=== PATIENT | male | born 1955 | race Caucasian/White ===

== ENCOUNTER → 2017-12-22 07:19 | Outpatient (REF) | payer MEDICAID, SELFPAY ==
[2017-12-22 08:23] LABS: Add Manual Diff / Slide Review NO; Basophils Percent Auto 0.6 % (0-2); Eosinophils Percent Auto 4.7 % (2-4); Hematocrit 42.1 % (41-53); Hemoglobin 14.3 g/dL (13.5-17.5); Lymphocytes Percent Auto 16.6 % (25-40); Mean Corpuscular Hemoglobin 31.1 PG (26-34); Mean Corpuscular Volume 91.4 fL (80-100); Monocytes Percent Auto 9.7 % (3-14); Neutrophils Absolute Auto 6400 /uL (3000-5900); Neutrophils Percent Auto 68.4 % (50-75); Platelet Count 234 X10^3/uL (150-400); Red Blood Cell Count 4.61 X10^6/uL (4.5-5.9); Red Cell Distribution Width 13.5 % (11.6-14.8); White Blood Cell Count 9.3 X10^3/uL (4.5-11.0)
[2017-12-22 08:31] LABS: Hemoglobin A1C% w Est Avg Glu 8.3 % (4.0-6.0)
[2017-12-22 08:42] LABS: Alanine Aminotransferase 80 IU/L (21-72); Albumin 3.5 g/dL (3.5-5.0); Albumin Globulin Ratio 0.9 (1.0-2.8); Alkaline Phosphatase 122 U/L (38-126); Aspartate Aminotransferase 36 IU/L (17-59); BUN Creatinine Ratio 37.1 (6-22); Bilirubin Total 0.3 mg/dL (0.2-1.3); Blood Urea Nitrogen 26 mg/dL (9-20); Calcium 8.8 mg/dL (8.4-10.2); Carbon Dioxide 32 mmol/L (22-32); Chloride 101 mmol/L (98-107); Estimated Glomerular Filt Rate > 60.0 mL/min (>60); Globulin 3.8 g/dL (1.7-4.1); Glucose 114 mg/dL (80-110); HEMOLYSIS < 15 (0-50); Potassium 4.3 mmol/L (3.4-5.1); Sodium 141 mmol/L (137-145); Total Protein 7.3 g/dL (6.3-8.2)
== END ==
LOC: LAB 07:19
PROVIDERS: Family Provider Internal Medicine; PCP Internal Medicine; Visit Provider Internal Medicine
DX: I10 Essential (primary) hypertension (principal); E11.9 Type 2 diabetes mellitus without complications
CPT/HCPCS: 36415; 80053; 83036; 85025

== ENCOUNTER → 2018-05-04 14:56 | Outpatient (REF) | payer MEDICAID, SELFPAY ==
[2018-05-04 15:45] LABS: BUN Creatinine Ratio 33.8 (6-22); Blood Urea Nitrogen 27 mg/dL (9-20); Calcium 9.4 mg/dL (8.4-10.2); Carbon Dioxide 27 mmol/L (22-32); Chloride 97 mmol/L (98-107); Estimated Glomerular Filt Rate > 60.0 mL/min (>60); Glucose 381 mg/dL (80-110); HEMOLYSIS < 15 (0-50); Potassium 4.3 mmol/L (3.4-5.1); Sodium 139 mmol/L (137-145)
== END ==
LOC: LAB 14:56
PROVIDERS: Family Provider Internal Medicine; PCP Internal Medicine; Visit Provider Nurse Practitioner Family
DX: I10 Essential (primary) hypertension (principal)
CPT/HCPCS: 80048

== ENCOUNTER → 2018-06-17 07:27 | Outpatient (REF) | payer MEDICAID, SELFPAY ==
[2018-06-17 08:07] LABS: Add Manual Diff / Slide Review NO; Basophils Absolute Auto 0 /uL (0-100); Basophils Percent Auto 0.5 % (0-2); Eosinophils Absolute Auto 400 /uL (0-450); Eosinophils Percent Auto 5.1 % (2-4); Hematocrit 44.1 % (41-53); Hemoglobin 14.8 g/dL (13.5-17.5); Lymphocytes Absolute Auto 1400 /uL (1100-4500); Lymphocytes Percent Auto 17.4 % (25-40); Mean Corpuscular HGB Conc 33.5 % (30-36); Mean Corpuscular Hemoglobin 30.1 PG (26-34); Mean Corpuscular Volume 90.1 fL (80-100); Monocytes Absolute Auto 800 /uL (0-900); Monocytes Percent Auto 9.9 % (3-14); Neutrophils Absolute Auto 5500 /uL (1500-7000); Neutrophils Percent Auto 67.1 % (50-75); Platelet Count 262 X10^3/uL (150-400); Red Cell Distribution Width 13.6 % (11.6-14.8); White Blood Cell Count 8.2 X10^3/uL (4.5-11.0)
[2018-06-17 08:12] LABS: Blood Urea Nitrogen 24 mg/dL (9-20); Calcium 8.7 mg/dL (8.4-10.2); Carbon Dioxide 30 mmol/L (22-32); Chloride 104 mmol/L (98-107); Estimated Glomerular Filt Rate > 60.0 mL/min (>60); Glucose 211 mg/dL (80-110); HEMOLYSIS < 15 (0-50); Potassium 4.5 mmol/L (3.4-5.1); Sodium 140 mmol/L (137-145)
[2018-06-17 08:22] LABS: Hemoglobin A1C% w Est Avg Glu 9.4 % (4.0-6.0)
== END ==
LOC: LAB 07:27
PROVIDERS: Family Provider Internal Medicine; PCP Internal Medicine; Visit Provider Internal Medicine
DX: I10 Essential (primary) hypertension (principal); E08.8 Diabetes mellitus due to underlying condition with unspecified complications
CPT/HCPCS: 36415; 80048; 83036; 85025

== ENCOUNTER → 2018-08-12 07:11 | Outpatient (REF) | payer MEDICAID, SELFPAY ==
[2018-08-12 07:52] LABS: Add Manual Diff / Slide Review NO; Basophils Absolute Auto 100 /uL (0-100); Basophils Percent Auto 0.8 % (0-2); Eosinophils Absolute Auto 400 /uL (0-450); Eosinophils Percent Auto 5.5 % (2-4); Hematocrit 42.3 % (41-53); Hemoglobin 14.3 g/dL (13.5-17.5); Lymphocytes Absolute Auto 1700 /uL (1100-4500); Lymphocytes Percent Auto 21.3 % (25-40); Mean Corpuscular HGB Conc 33.7 % (30-36); Mean Corpuscular Hemoglobin 29.9 PG (26-34); Mean Corpuscular Volume 88.7 fL (80-100); Monocytes Absolute Auto 800 /uL (0-900); Monocytes Percent Auto 9.5 % (3-14); Neutrophils Absolute Auto 5100 /uL (1500-7000); Neutrophils Percent Auto 62.9 % (50-75); Platelet Count 256 X10^3/uL (150-400); Red Blood Cell Count 4.77 X10^6/uL (4.5-5.9); Red Cell Distribution Width 13.6 % (11.6-14.8); White Blood Cell Count 8.1 X10^3/uL (4.5-11.0)
[2018-08-12 08:16] LABS: Hemoglobin A1C% w Est Avg Glu 8.8 % (4.0-6.0)
[2018-08-12 08:54] LABS: Blood Urea Nitrogen 15 mg/dL (9-20); Calcium 8.6 mg/dL (8.4-10.2); Carbon Dioxide 30 mmol/L (22-32); Chloride 98 mmol/L (98-107); Estimated Glomerular Filt Rate > 60.0 mL/min (>60); Glucose 198 mg/dL (80-110); HEMOLYSIS < 15 (0-50); Phenytoin / Dilantin 8.6 ug/mL (10-20); Potassium 4.6 mmol/L (3.4-5.1); Sodium 138 mmol/L (137-145)
== END ==
LOC: LAB 07:11
PROVIDERS: Family Provider Internal Medicine; PCP Internal Medicine; Visit Provider Nurse Practitioner Family
DX: G40.909 Epilepsy, unspecified, not intractable, without status epilepticus (principal); E11.9 Type 2 diabetes mellitus without complications
CPT/HCPCS: 36415; 80048; 80185; 83036; 85025

== ENCOUNTER 2018-09-06 01:16 | Inpatient (IN) | payer MEDICAID, SELFPAY ==
[2018-09-06] VITALS (14 sets, daily range): BP systolic 109–160; BP diastolic 63–79; PULSE 85–104; RESP 16–32; TEMP 36.4–38.7; O2SAT 87–99; BMI 25.2
--- NOTE | 2018-09-06 01:22 | DI.RAD.S_ITS ---
PROCEDURE: XR CHEST 1V INDICATIONS: hypoxia TECHNIQUE: One view of the chest was acquired. COMPARISON: [facility], CHEST 2 VIEW, 07/24/2016, 16:17. [facility], , CHEST 1 VIEW, 12/20/2013, 12:52. FINDINGS: Surgical changes and devices: None. Lungs and pleura: Lungs are abnormal, with a mild patchy pattern of pneumonia, and reduced inspiratory volume.. No pleural effusions or pneumothorax. Mediastinum: Mediastinal contours appear normal. Heart size is normal. Bones and chest wall: No suspicious bony lesions. Overlying soft tissues appear unremarkable. IMPRESSION: Inspiratory volume is significantly reduced and there is a patchy pattern of what appears to be pneumonia present bilaterally. Dictated by: Vijay Thurman M.D. on 09/06/2018 at 8:13 Approved by: Vijay Thurman M.D. on 09/06/2018 at 8:13
[2018-09-06] MEDS: ACETAMINOPHEN 325 MG TABLET 650 MG PO (01:29)
[2018-09-06 01:56] LABS: Influenza A and B by PCR Rapid Negative (Negative)
[2018-09-06 01:56] LABS: Hemoglobin 16.3 g/dL (13.5-17.5); Mean Corpuscular Hemoglobin 29.9 PG (26-34); Platelet Count 305 X10^3/uL (150-400); Red Blood Cell Count 5.46 X10^6/uL (4.5-5.9); Red Cell Distribution Width 13.8 % (11.6-14.8); White Blood Cell Count 15.8 X10^3/uL (4.5-11.0)
[2018-09-06 01:58] LABS: Add Manual Diff / Slide Review YES
[2018-09-06 02:04] LABS: Alanine Aminotransferase 62 IU/L (21-72); Albumin 4.2 g/dL (3.5-5.0); Alkaline Phosphatase 162 U/L (38-126); Aspartate Aminotransferase 38 IU/L (17-59); BUN Creatinine Ratio 36.7 (6-22); Bilirubin Total 0.6 mg/dL (0.2-1.3); Blood Urea Nitrogen 22 mg/dL (9-20); Carbon Dioxide 26 mmol/L (22-32); Chloride 101 mmol/L (98-107); Creatine Kinase 36 U/L (55-170); Estimated Glomerular Filt Rate > 60.0 mL/min (>60); Globulin 4.4 g/dL (1.7-4.1); Glucose 256 mg/dL (80-110); HEMOLYSIS < 15 (0-50); Lipase 17 U/L (23-300); Magnesium 1.3 mg/dL (1.6-2.3); Potassium 3.9 mmol/L (3.4-5.1); Sodium 138 mmol/L (137-145); Total Protein 8.6 g/dL (6.3-8.2)
[2018-09-06 02:05] LABS: Neutrophils Absolute Manual 14062 /uL (3000-5900); RBC Morphology Normal Morphology; Total Cells Counted 100
[2018-09-06 02:08] LABS: PTT Partial Thromboplastin Tim 28 SECONDS (26.4-36.2)
[2018-09-06 02:16] LABS: Troponin I < 0.012 ng/mL (0.01-0.034)
[2018-09-06 02:19] LABS: Procalcitonin 0.21 ng/mL (<0.5)
[2018-09-06 02:23] LABS: B Type Natriuretic Peptide < 100 (<100)
[2018-09-06 02:25] LABS: Lactate (Lactic Acid) 1.8 mmol/L (0.7-2.1)
--- NOTE | 2018-09-06 02:50 | ED.SOB ---
HPI - SOB/Dyspnea General Chief Complaint: Shortness of Breath/Dyspnea Stated Complaint: SOB Time Seen by Provider: 09/06/18 01:20 Source: patient and EMS Mode of arrival: EMS History of Present Illness Patient is a 63-year-old male who resides at [facility] presents with vomiting and hypoxia. He has a history of CVA with right-sided weakness. He was noted to be of vomiting today and then had difficulty breathing he was noted to have low oxygen. Patient is febrile here. He is a a poor historian overall has no complaints. MD Complaint: shortness of breath Severity: moderate Relieving factors: oxygen Treatment prior to arrival: oxygen Related Data Home oxygen amount: none Previous Rx's Medication Instructions Recorded glyburide 5 mg PO QDAY #30 05/17/12 CHLORTHALIDONE (#HYGROTON) 25 mg PO QDAY #90 05/24/12 Cane: Single Point Adjustable Cane dev #1 06/04/12 Clonidine Hydrochloride (#CATAPRES) 0.1 mg PO BID #180 07/13/12 MINOXIDIL (#LONITEN) 5 mg PO BID #90 07/13/12 losartan 100 mg PO QDAY #30 07/13/12 metoprolol succinate [Toprol XL] 200 mg PO BID #60 07/13/12 paroxetine HCl [Paxil] 20 mg PO Q DAY #90 08/03/12 Glucose: Test Strips 0 str #100 08/04/12 Cane: Single Point dev #1 08/09/12 [GRABBER] #0 08/09/12 Phenytoin Sodium, Extended (#AVPAK 100 mg PO TID #270 08/13/12 EXTENDED PHENYTOIN SODIUM) atorvastatin [Lipitor] 80 mg PO QDAY #90 09/02/12 ISOSORBIDE MONONITRATE (#IMDUR) 60 mg PO QDAY #30 10/08/12 Glucose: Home Monitor 0 dev #1 10/11/12 DILTIAZEM HCL (DILTIA XT~) 120 mg PO BID #60 10/27/12 bupropion HCl [Wellbutrin SR] 150 mg PO BID #60 11/15/12 ASPIRIN (#ASPIRIN) 325 mg PO Q DAY #100 11/29/12 BENZONATATE (Tessalon) 200 mg PO TID #20 01/11/13 LISINOPRIL (#PRINIVIL) 40 mg PO BID #180 01/19/13 Glucose: Home Monitor 0 dev DIRECTED #1 01/21/13 Lancet: Device 0 dev QID #1 01/21/13 silver sulfadiazine 0 TOPICAL SEE INSTRUCTIONS #25 gm 01/21/13 metformin [Glucophage] 1,000 mg PO BID #60 tab 02/07/13 ondansetron HCl [Zofran] 4 mg PO Q6HP PRN #30 tab 02/08/13 Allergies Allergy/AdvReac Type Severity Reaction Status Date / Time No Known Allergies Allergy Uncoded 09/09/17 12:17 Review of Systems Review of Systems ROS Unobtainable: All systems reviewed & are unremarkable except as noted in HPI and below Constitutional Reports fever(s) Eyes Denies eye discharge ENT Ears, Nose, Mouth, and Throat: Denies sore throat Cardiovascular Denies chest pain, Denies irregular heart rhythm, Denies lightheadedness, Denies palpitations, Reports dyspnea and Denies orthopnea Respiratory Reports dyspnea Gastrointestinal Gastrointestinal: Denies abdominal pain, Denies change in bowel habits, Denies diarrhea, Denies nausea and Reports vomiting Musculoskeletal Denies back pain, Denies muscle weakness, Denies numbness and Denies tingling Integumentary/Breasts Denies pruritus, Denies erythema, Denies rash and Denies wounds Neurologic Reports as per HPI, Denies numbness and Denies tingling Endocrine Denies palpitations [facility] Medical History CVA (cerebral vascular accident) (Acute) Coronary artery disease (Acute) Diabetes (Acute) Hyperlipidemia (Acute) Hypertension (Acute) Social History (Updated 09/06/18 @ 03:27 by Ca Zavala DO) lives independently: No housing: shelter Social History lives independently: No housing: shelter Exam Initial Vital Signs Initial Vital Signs: Vital Signs Temperature 101.6 F H 09/06/18 01:21 Pulse Rate 104 H 09/06/18 01:21 Respiratory Rate 32 H 09/06/18 01:21 Blood Pressure 152/72 H 09/06/18 01:21 Pulse Oximetry 87 L 09/06/18 01:21 GENERAL: Alert male appears older than stated age and in no acute distress. HEENT: Head atraumatic,EOMI, pupils reactive, face symmetric, neck is supple no JVD CARDIOVASCULAR: Regular rate and rhythm without murmurs, rubs or gallops. RESPIRATORY: Decreased breath sounds on right greater than left no crackles no apparent respiratory distress although O2 level on room air is noted to be 87% with good pleth ABDOMEN: Soft, nontender. Normoactive bowel sounds all 4 quadrants. No guarding or rebound. EXTREMITIES: Normal range of motion, no clubbing or edema. Neurovascularly intact NEUROLOGICAL: Alert and oriented. right-sided contractures SKIN: Warm, dry, no laceration, no petechiae, no rashes or lesions. Course Orders Ordered: ED Orders 09/06/18 01:22 Consult to Respiratory Therapy Evaluate & Treat XR chest 1V Stat EKG-12 Lead Stat 09/06/18 01:30 B Type Natriuretic Peptide Stat Complete Blood Count AUTO DIFF Stat Comprehensive Metabolic Panel Stat Lactate (Lactic Acid) Stat Lipase Stat Magnesium Stat Partial Thromboplastin Time Stat Procalcitonin Stat Prothrombin Time INR Stat Troponin & CK Cardiac Panel Stat 09/06/18 01:35 Influenza A and B by PCR Rapid Stat 09/06/18 01:55 Blood Culture Stat 09/06/18 03:30 Urinalysis and Microscopic Stat 09/06/18 03:31 Consult to Discharge Planning Routine 09/06/18 03:34 Respiratory Panel (Film Array) Stat 09/07/18 04:00 Basic Metabolic Panel Stat Complete Blood Count AUTO DIFF Stat Magnesium Stat Procalcitonin Stat 09/08/18 06:00 XR chest 2V Routine Acetaminophen (Tylenol) 650 mg PO Q6HR PRN PRN Reason: As Needed for Fever/Mild Pain Docusate Sodium (Colace) 100 mg PO BID PRN PRN Reason: Constipation Heparin Sodium (Porcine) (Heparin) 5,000 unit SUBCUT BID CAROLE Sodium Chloride (Normal Saline 0.9%) 2,400 mls @ 800 mls/hr 30 ml/kg infuse over 3 hr (2400 ml) IV NOW ONE Stop: 09/06/18 05:38 Last Admin: 09/06/18 03:00 Dose: 800 mls/hr Magnesium Sulfate (Magnesium Sulfate) 2 gm in 50 mls @ 25 mls/hr IV NOW ONE Stop: 09/06/18 05:37 Melatonin (Melatonin) 5 mg PO BEDTIME PRN PRN Reason: Sleep Ondansetron HCl (Zofran) 4 mg IV Q8HR PRN PRN Reason: Nausea And Vomiting Discontinued Medications Acetaminophen (Tylenol) 650 mg PO NOW ONE Stop: 09/06/18 01:23 Last Admin: 09/06/18 01:29 Dose: 650 mg Cefepime HCl 2 gm/ Sodium (Chloride) 100 mls @ 200 mls/hr IV NOW ONE Stop: 09/06/18 02:33 Vancomycin HCl 1,250 mg/ (Sodium Chloride) 250 mls @ 250 mls/hr IV NOW ONE Stop: 09/06/18 02:33 Vital Signs - 8 hr 09/06/18 01:21 09/06/18 01:29 09/06/18 03:50 Temperature 101.6 F H 101.6 F H Pulse Rate 104 H 87 Respiratory Rate 32 H 25 H Blood Pressure 152/72 H 124/79 Pulse Oximetry 87 L 97 MDM - SOB/Dyspnea Lab Data Attestation: I reviewed the patient's lab results. Result diagrams: 09/06/18 01:30 09/06/18 01:30 Lab Results 09/06/18 09/06/18 09/06/18 Range/Units 01:30 01:30 01:30 WBC 15.8 H (4.5-11.0) X10^3/uL RBC 5.46 (4.5-5.9) X10^6/uL Hgb 16.3 (13.5-17.5) g/dL Hct 48.0 (41-53) % MCV 88.0 (80-100) fL MCH 29.9 (26-34) PG MCHC 34.0 (30-36) % RDW 13.8 (11.6-14.8) % Plt Count 305 (150-400) X10^3/uL Neut % (Auto) Not Reportable Lymph % (Auto) Not Reportable [place] % (Auto) Not Reportable Eos % (Auto) Not Reportable Baso % (Auto) Not Reportable Lymph # (Auto) Not Reportable [place] # (Auto) Not Reportable Baso # (Auto) Not Reportable Total Counted 100 Seg Neutrophils % 83.0 H (38-70) % Band Neutrophils % 6.0 (3-7) % Lymphocytes % (Manual) 8.0 L (25-45) % Monocytes % (Manual) 3.0 (2-11) % Neutrophils # (Manual) 26650 H (8334-4023) /uL RBC Morphology Normal morphology PT 12.0 (10.1-12.7) SECONDS INR 1.0 (0.9-1.3) APTT 28 (26.4-36.2) SECONDS Sodium 138 (137-145) mmol/L Potassium 3.9 (3.4-5.1) mmol/L Chloride 101 (98-107) mmol/L Carbon Dioxide 26 (22-32) mmol/L BUN 22 H (9-20) mg/dL Creatinine 0.60 L (0.66-1.25) mg/dL Estimated GFR > 60.0 (>60) mL/min BUN/Creatinine Ratio 36.7 H (6-22) Glucose 256 H (80-110) mg/dL Lactate (0.7-2.1) mmol/L Calcium 9.0 (8.4-10.2) mg/dL Magnesium 1.3 L (1.6-2.3) mg/dL Total Bilirubin 0.6 (0.2-1.3) mg/dL AST 38 (17-59) IU/L ALT 62 (21-72) IU/L Alkaline Phosphatase 162 H (38-126) U/L Total Creatine Kinase 36 L (55-170) U/L CK-MB (CK-2) TNP CK-MB (CK-2) Rel Index TNP Troponin I < 0.012 (0.01-0.034) ng/mL B-Natriuretic Peptide < 100 (<100) Total Protein 8.6 H (6.3-8.2) g/dL Albumin 4.2 (3.5-5.0) g/dL Globulin 4.4 H (1.7-4.1) g/dL Albumin/Globulin Ratio 1.0 (1.0-2.8) Lipase (23-300) U/L Procalcitonin (<0.5) ng/mL Influenza A & B (PCR) (Negative) 09/06/18 09/06/18 09/06/18 Range/Units 01:30 01:30 01:30 WBC (4.5-11.0) X10^3/uL RBC (4.5-5.9) X10^6/uL Hgb (13.5-17.5) g/dL Hct (41-53) % MCV (80-100) fL MCH (26-34) PG MCHC (30-36) % RDW (11.6-14.8) % Plt Count (150-400) X10^3/uL Neut % (Auto) Lymph % (Auto) [place] % (Auto) Eos % (Auto) Baso % (Auto) Lymph # (Auto) [place] # (Auto) Baso # (Auto) Total Counted Seg Neutrophils % (38-70) % Band Neutrophils % (3-7) % Lymphocytes % (Manual) (25-45) % Monocytes % (Manual) (2-11) % Neutrophils # (Manual) (5053-4308) /uL RBC Morphology PT (10.1-12.7) SECONDS INR (0.9-1.3) APTT (26.4-36.2) SECONDS Sodium (137-145) mmol/L Potassium (3.4-5.1) mmol/L Chloride (98-107) mmol/L Carbon Dioxide (22-32) mmol/L BUN (9-20) mg/dL Creatinine (0.66-1.25) mg/dL Estimated GFR (>60) mL/min BUN/Creatinine Ratio (6-22) Glucose (80-110) mg/dL Lactate 1.8 (0.7-2.1) mmol/L Calcium (8.4-10.2) mg/dL Magnesium (1.6-2.3) mg/dL Total Bilirubin (0.2-1.3) mg/dL AST (17-59) IU/L ALT (21-72) IU/L Alkaline Phosphatase (38-126) U/L Total Creatine Kinase (55-170) U/L CK-MB (CK-2) CK-MB (CK-2) Rel Index Troponin I (0.01-0.034) ng/mL B-Natriuretic Peptide (<100) Total Protein (6.3-8.2) g/dL Albumin (3.5-5.0) g/dL Globulin (1.7-4.1) g/dL Albumin/Globulin Ratio (1.0-2.8) Lipase 17 L (23-300) U/L Procalcitonin 0.21 (<0.5) ng/mL Influenza A & B (PCR) (Negative) 09/06/18 Range/Units 01:35 WBC (4.5-11.0) X10^3/uL RBC (4.5-5.9) X10^6/uL Hgb (13.5-17.5) g/dL Hct (41-53) % MCV (80-100) fL MCH (26-34) PG MCHC (30-36) % RDW (11.6-14.8) % Plt Count (150-400) X10^3/uL Neut % (Auto) Lymph % (Auto) [place] % (Auto) Eos % (Auto) Baso % (Auto) Lymph # (Auto) [place] # (Auto) Baso # (Auto) Total Counted Seg Neutrophils % (38-70) % Band Neutrophils % (3-7) % Lymphocytes % (Manual) (25-45) % Monocytes % (Manual) (2-11) % Neutrophils # (Manual) (7243-5407) /uL RBC Morphology PT (10.1-12.7) SECONDS INR (0.9-1.3) APTT (26.4-36.2) SECONDS Sodium (137-145) mmol/L Potassium (3.4-5.1) mmol/L Chloride (98-107) mmol/L Carbon Dioxide (22-32) mmol/L BUN (9-20) mg/dL Creatinine (0.66-1.25) mg/dL Estimated GFR (>60) mL/min BUN/Creatinine Ratio (6-22) Glucose (80-110) mg/dL Lactate (0.7-2.1) mmol/L Calcium (8.4-10.2) mg/dL Magnesium (1.6-2.3) mg/dL Total Bilirubin (0.2-1.3) mg/dL AST (17-59) IU/L ALT (21-72) IU/L Alkaline Phosphatase (38-126) U/L Total Creatine Kinase (55-170) U/L CK-MB (CK-2) CK-MB (CK-2) Rel Index Troponin I (0.01-0.034) ng/mL B-Natriuretic Peptide (<100) Total Protein (6.3-8.2) g/dL Albumin (3.5-5.0) g/dL Globulin (1.7-4.1) g/dL Albumin/Globulin Ratio (1.0-2.8) Lipase (23-300) U/L Procalcitonin (<0.5) ng/mL Influenza A & B (PCR) Negative (Negative) ECG Data Attestation: I personally reviewed and interpreted this ECG as follows: Prior ECG tracings: not available for review Interpretation: Sinus tachycardia rate 105 DE interval [address] elevations MDM Narrative Medical decision making narrative: Patient is not hypotensive or tachycardic normal lactic acid. Started antibiotics and IV fluids. He is febrile with leukocytosis and pneumonia on x-ray along with hypoxia. It is probable that he aspirated after vomiting. His abdomen is soft and nontender. [facility] hospitalist accepts patient Discharge Plan Departure Patient Disposition: Admitted As Inpatient Clinical Impression: Acute respiratory failure with hypoxia Pneumonia Qualifiers: Pneumonia type: aspiration pneumonia Aspiration pneumonia type: unspecified Laterality: right Lung location: middle lobe of lung Qualified Code(s): J69.0 - Pneumonitis due to inhalation of food and vomit Discharge Date/Time: 09/06/18 03:52 Interventions: ED Discharge Assessment Last Done: 09/06/18 03:50 Admit Date/Time: 09/06/18 03:10 Admit Provider: Naldo Maurer
[2018-09-06] MEDS: SODIUM CHLORIDE 0.9% 2,400 ML 800 ML IV (03:00)
--- NOTE | 2018-09-06 03:30 | ED_ITS ---
HPI - SOB/Dyspnea General Chief Complaint: Shortness of Breath/Dyspnea Stated Complaint: SOB Time Seen by Provider: 09/06/18 01:20 Source: patient and EMS Mode of arrival: EMS History of Present Illness Patient is a 63-year-old male who resides at [facility] presents with vomiting and hypoxia. He has a history of CVA with right-sided weakness. He was noted to be of vomiting today and then had difficulty breathing he was noted to have low oxygen. Patient is febrile here. He is a a poor historian overall has no complaints. MD Complaint: shortness of breath Severity: moderate Relieving factors: oxygen Treatment prior to arrival: oxygen Related Data Home oxygen amount: none Previous Rx's Medication Instructions Recorded glyburide 5 mg PO QDAY #30 05/17/12 CHLORTHALIDONE (#HYGROTON) 25 mg PO QDAY #90 05/24/12 Cane: Single Point Adjustable Cane dev #1 06/04/12 Clonidine Hydrochloride (#CATAPRES) 0.1 mg PO BID #180 07/13/12 MINOXIDIL (#LONITEN) 5 mg PO BID #90 07/13/12 losartan 100 mg PO QDAY #30 07/13/12 metoprolol succinate [Toprol XL] 200 mg PO BID #60 07/13/12 paroxetine HCl [Paxil] 20 mg PO Q DAY #90 08/03/12 Glucose: Test Strips 0 str #100 08/04/12 Cane: Single Point dev #1 08/09/12 [GRABBER] #0 08/09/12 Phenytoin Sodium, Extended (#AVPAK 100 mg PO TID #270 08/13/12 EXTENDED PHENYTOIN SODIUM) atorvastatin [Lipitor] 80 mg PO QDAY #90 09/02/12 ISOSORBIDE MONONITRATE (#IMDUR) 60 mg PO QDAY #30 10/08/12 Glucose: Home Monitor 0 dev #1 10/11/12 DILTIAZEM HCL (DILTIA XT~) 120 mg PO BID #60 10/27/12 bupropion HCl [Wellbutrin SR] 150 mg PO BID #60 11/15/12 ASPIRIN (#ASPIRIN) 325 mg PO Q DAY #100 11/29/12 BENZONATATE (Tessalon) 200 mg PO TID #20 01/11/13 LISINOPRIL (#PRINIVIL) 40 mg PO BID #180 01/19/13 Glucose: Home Monitor 0 dev DIRECTED #1 01/21/13 Lancet: Device 0 dev QID #1 01/21/13 silver sulfadiazine 0 TOPICAL SEE INSTRUCTIONS #25 gm 01/21/13 metformin [Glucophage] 1,000 mg PO BID #60 tab 02/07/13 ondansetron HCl [Zofran] 4 mg PO Q6HP PRN #30 tab 02/08/13 Allergies Allergy/AdvReac Type Severity Reaction Status Date / Time No Known Allergies Allergy Uncoded 09/09/17 12:17 Review of Systems Review of Systems ROS Unobtainable: All systems reviewed & are unremarkable except as noted in HPI and below Constitutional Reports fever(s) Eyes Denies eye discharge ENT Ears, Nose, Mouth, and Throat: Denies sore throat Cardiovascular Denies chest pain, Denies irregular heart rhythm, Denies lightheadedness, Denies palpitations, Reports dyspnea and Denies orthopnea Respiratory Reports dyspnea Gastrointestinal Gastrointestinal: Denies abdominal pain, Denies change in bowel habits, Denies diarrhea, Denies nausea and Reports vomiting Musculoskeletal Denies back pain, Denies muscle weakness, Denies numbness and Denies tingling Integumentary/Breasts Denies pruritus, Denies erythema, Denies rash and Denies wounds Neurologic Reports as per HPI, Denies numbness and Denies tingling Endocrine Denies palpitations [facility] Medical History CVA (cerebral vascular accident) (Acute) Coronary artery disease (Acute) Diabetes (Acute) Hyperlipidemia (Acute) Hypertension (Acute) Social History (Updated 09/06/18 @ 03:27 by Ca Zavala DO) lives independently: No housing: [facility] Social History lives independently: No housing: [facility] Exam Initial Vital Signs Initial Vital Signs: Vital Signs Temperature 101.6 F H 09/06/18 01:21 Pulse Rate 104 H 09/06/18 01:21 Respiratory Rate 32 H 09/06/18 01:21 Blood Pressure 152/72 H 09/06/18 01:21 Pulse Oximetry 87 L 09/06/18 01:21 GENERAL: Alert male appears older than stated age and in no acute distress. HEENT: Head atraumatic,EOMI, pupils reactive, face symmetric, neck is supple no JVD CARDIOVASCULAR: Regular rate and rhythm without murmurs, rubs or gallops. RESPIRATORY: Decreased breath sounds on right greater than left no crackles no apparent respiratory distress although O2 level on room air is noted to be 87% with good pleth ABDOMEN: Soft, nontender. Normoactive bowel sounds all 4 quadrants. No guarding or rebound. EXTREMITIES: Normal range of motion, no clubbing or edema. Neurovascularly intact NEUROLOGICAL: Alert and oriented. right-sided contractures SKIN: Warm, dry, no laceration, no petechiae, no rashes or lesions. Course Orders Ordered: ED Orders 09/06/18 01:22 Consult to Respiratory Therapy Evaluate & Treat XR chest 1V Stat EKG-12 Lead Stat 09/06/18 01:30 B Type Natriuretic Peptide Stat Complete Blood Count AUTO DIFF Stat Comprehensive Metabolic Panel Stat Lactate (Lactic Acid) Stat Lipase Stat Magnesium Stat Partial Thromboplastin Time Stat Procalcitonin Stat Prothrombin Time INR Stat Troponin & CK Cardiac Panel Stat 09/06/18 01:35 Influenza A and B by PCR Rapid Stat 09/06/18 01:55 Blood Culture Stat 09/06/18 03:30 Urinalysis and Microscopic Stat 09/06/18 03:31 Consult to Discharge Planning Routine 09/06/18 03:34 Respiratory Panel (Film Array) Stat 09/07/18 04:00 Basic Metabolic Panel Stat Complete Blood Count AUTO DIFF Stat Magnesium Stat Procalcitonin Stat 09/08/18 06:00 XR chest 2V Routine Acetaminophen (Tylenol) 650 mg PO Q6HR PRN PRN Reason: As Needed for Fever/Mild Pain Docusate Sodium (Colace) 100 mg PO BID PRN PRN Reason: Constipation Heparin Sodium (Porcine) (Heparin) 5,000 unit SUBCUT BID CAROLE Sodium Chloride (Normal Saline 0.9%) 2,400 mls @ 800 mls/hr 30 ml/kg infuse ove r 3 hr (2400 ml) IV NOW ONE Stop: 09/06/18 05:38 Last Admin: 09/06/18 03:00 Dose: 800 mls/hr Magnesium Sulfate (Magnesium Sulfate) 2 gm in 50 mls @ 25 mls/hr IV NOW ONE Stop: 09/06/18 05:37 Melatonin (Melatonin) 5 mg PO BEDTIME PRN PRN Reason: Sleep Ondansetron HCl (Zofran) 4 mg IV Q8HR PRN PRN Reason: Nausea And Vomiting Discontinued Medications Acetaminophen (Tylenol) 650 mg PO NOW ONE Stop: 09/06/18 01:23 Last Admin: 09/06/18 01:29 Dose: 650 mg Cefepime HCl 2 gm/ Sodium (Chloride) 100 mls @ 200 mls/hr IV NOW ONE Stop: 09/06/18 02:33 Vancomycin HCl 1,250 mg/ (Sodium Chloride) 250 mls @ 250 mls/hr IV NOW ONE Stop: 09/06/18 02:33 Vital Signs - 8 hr 09/06/18 01:21 09/06/18 01:29 09/06/18 03:50 Temperature 101.6 F H 101.6 F H Pulse Rate 104 H 87 Respiratory Rate 32 H 25 H Blood Pressure 152/72 H 124/79 Pulse Oximetry 87 L 97 MDM - SOB/Dyspnea Lab Data Attestation: I reviewed the patient's lab results. Result diagrams: 09/06/18 01:30 09/06/18 01:30 Lab Results 09/06/18 09/06/18 09/06/18 Range/Units 01:30 01:30 01:30 WBC 15.8 H (4.5-11.0) X10^3/uL RBC 5.46 (4.5-5.9) X10^6/uL Hgb 16.3 (13.5-17.5) g/dL Hct 48.0 (41-53) % MCV 88.0 (80-100) fL MCH 29.9 (26-34) PG MCHC 34.0 (30-36) % RDW 13.8 (11.6-14.8) % Plt Count 305 (150-400) X10^3/uL Neut % (Auto) Not Reportable Lymph % (Auto) Not Reportable [place] % (Auto) Not Reportable Eos % (Auto) Not Reportable Baso % (Auto) Not Reportable Lymph # (Auto) Not Reportable [place] # (Auto) Not Reportable Baso # (Auto) Not Reportable Total Counted 100 Seg Neutrophils % 83.0 H (38-70) % Band Neutrophils % 6.0 (3-7) % Lymphocytes % (Manual) 8.0 L (25-45) % Monocytes % (Manual) 3.0 (2-11) % Neutrophils # (Manual) 90371 H (8754-8251) /uL RBC Morphology Normal morphology PT 12.0 (10.1-12.7) SECONDS INR 1.0 (0.9-1.3) APTT 28 (26.4-36.2) SECONDS Sodium 138 (137-145) mmol/L Potassium 3.9 (3.4-5.1) mmol/L Chloride 101 (98-107) mmol/L Carbon Dioxide 26 (22-32) mmol/L BUN 22 H (9-20) mg/dL Creatinine 0.60 L (0.66-1.25) mg/dL Estimated GFR > 60.0 (>60) mL/min BUN/Creatinine Ratio 36.7 H (6-22) Glucose 256 H (80-110) mg/dL Lactate (0.7-2.1) mmol/L Calcium 9.0 (8.4-10.2) mg/dL Magnesium 1.3 L (1.6-2.3) mg/dL Total Bilirubin 0.6 (0.2-1.3) mg/dL AST 38 (17-59) IU/L ALT 62 (21-72) IU/L Alkaline Phosphatase 162 H (38-126) U/L Total Creatine Kinase 36 L (55-170) U/L CK-MB (CK-2) TNP CK-MB (CK-2) Rel Index TNP Troponin I < 0.012 (0.01-0.034) ng/mL B-Natriuretic Peptide < 100 (<100) Total Protein 8.6 H (6.3-8.2) g/dL Albumin 4.2 (3.5-5.0) g/dL Globulin 4.4 H (1.7-4.1) g/dL Albumin/Globulin Ratio 1.0 (1.0-2.8) Lipase (23-300) U/L Procalcitonin (<0.5) ng/mL Influenza A & B (PCR) (Negative) 09/06/18 09/06/18 09/06/18 Range/Units 01:30 01:30 01:30 WBC (4.5-11.0) X10^3/uL RBC (4.5-5.9) X10^6/uL Hgb (13.5-17.5) g/dL Hct (41-53) % MCV (80-100) fL MCH (26-34) PG MCHC (30-36) % RDW (11.6-14.8) % Plt Count (150-400) X10^3/uL Neut % (Auto) Lymph % (Auto) [place] % (Auto) Eos % (Auto) Baso % (Auto) Lymph # (Auto) [place] # (Auto) Baso # (Auto) Total Counted Seg Neutrophils % (38-70) % Band Neutrophils % (3-7) % Lymphocytes % (Manual) (25-45) % Monocytes % (Manual) (2-11) % Neutrophils # (Manual) (1016-9960) /uL RBC Morphology PT (10.1-12.7) SECONDS INR (0.9-1.3) APTT (26.4-36.2) SECONDS Sodium (137-145) mmol/L Potassium (3.4-5.1) mmol/L Chloride (98-107) mmol/L Carbon Dioxide (22-32) mmol/L BUN (9-20) mg/dL Creatinine (0.66-1.25) mg/dL Estimated GFR (>60) mL/min BUN/Creatinine Ratio (6-22) Glucose (80-110) mg/dL Lactate 1.8 (0.7-2.1) mmol/L Calcium (8.4-10.2) mg/dL Magnesium (1.6-2.3) mg/dL Total Bilirubin (0.2-1.3) mg/dL AST (17-59) IU/L ALT (21-72) IU/L Alkaline Phosphatase (38-126) U/L Total Creatine Kinase (55-170) U/L CK-MB (CK-2) CK-MB (CK-2) Rel Index Troponin I (0.01-0.034) ng/mL B-Natriuretic Peptide (<100) Total Protein (6.3-8.2) g/dL Albumin (3.5-5.0) g/dL Globulin (1.7-4.1) g/dL Albumin/Globulin Ratio (1.0-2.8) Lipase 17 L (23-300) U/L Procalcitonin 0.21 (<0.5) ng/mL Influenza A & B (PCR) (Negative) 09/06/18 Range/Units 01:35 WBC (4.5-11.0) X10^3/uL RBC (4.5-5.9) X10^6/uL Hgb (13.5-17.5) g/dL Hct (41-53) % MCV (80-100) fL MCH (26-34) PG MCHC (30-36) % RDW (11.6-14.8) % Plt Count (150-400) X10^3/uL Neut % (Auto) Lymph % (Auto) [place] % (Auto) Eos % (Auto) Baso % (Auto) Lymph # (Auto) [place] # (Auto) Baso # (Auto) Total Counted Seg Neutrophils % (38-70) % Band Neutrophils % (3-7) % Lymphocytes % (Manual) (25-45) % Monocytes % (Manual) (2-11) % Neutrophils # (Manual) (2032-1123) /uL RBC Morphology PT (10.1-12.7) SECONDS INR (0.9-1.3) APTT (26.4-36.2) SECONDS Sodium (137-145) mmol/L Potassium (3.4-5.1) mmol/L Chloride (98-107) mmol/L Carbon Dioxide (22-32) mmol/L BUN (9-20) mg/dL Creatinine (0.66-1.25) mg/dL Estimated GFR (>60) mL/min BUN/Creatinine Ratio (6-22) Glucose (80-110) mg/dL Lactate (0.7-2.1) mmol/L Calcium (8.4-10.2) mg/dL Magnesium (1.6-2.3) mg/dL Total Bilirubin (0.2-1.3) mg/dL AST (17-59) IU/L ALT (21-72) IU/L Alkaline Phosphatase (38-126) U/L Total Creatine Kinase (55-170) U/L CK-MB (CK-2) CK-MB (CK-2) Rel Index Troponin I (0.01-0.034) ng/mL B-Natriuretic Peptide (<100) Total Protein (6.3-8.2) g/dL Albumin (3.5-5.0) g/dL Globulin (1.7-4.1) g/dL Albumin/Globulin Ratio (1.0-2.8) Lipase (23-300) U/L Procalcitonin (<0.5) ng/mL Influenza A & B (PCR) Negative (Negative) ECG Data Attestation: I personally reviewed and interpreted this ECG as follows: Prior ECG tracings: not available for review Interpretation: Sinus tachycardia rate 105 MA interval [address] elevations MDM Narrative Medical decision making narrative: Patient is not hypotensive or tachycardic normal lactic acid. Started antibiotics and IV fluids. He is febrile with l eukocytosis and pneumonia on x-ray along with hypoxia. It is probable that he aspirated after vomiting. His abdomen is soft and nontender. [facility] hospitalist accepts patient Discharge Plan Departure Patient Disposition: Admitted As Inpatient Clinical Impression: Acute respiratory failure with hypoxia Pneumonia Qualifiers: Pneumonia type: aspiration pneumonia Aspiration pneumonia type: unspecified Laterality: right Lung location: middle lobe of lung Qualified Code(s): J69.0 - Pneumonitis due to inhalation of food and vomit Discharge Date/Time: 09/06/18 03:52 Interventions: ED Discharge Assessment Last Done: 09/06/18 03:50 Admit Date/Time: 09/06/18 03:10 Admit Provider: Naldo Maurer
--- NOTE | 2018-09-06 03:48 | PM.HP.1 ---
History of Present Illness Date Patient Seen: 09/06/18 Time Patient Seen: 03:48 Chief complaint: SOB Narrative: HPI is obtained via direct phone call with staff at the [facility] and information received from Dr. Meza. Patient is an unreliable historian as he is oriented to self only. 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 Patient presented via EMS on 09/06/2018 at approximately 1:21 AM with hypoxia. Patient is a resident of [facility], prior to the arrival he found covered in vomit. The staff sat him up and thereafter he had another two episodes of vomiting. Patient is not noted to have been short of breath; however, he was hypoxic w/ SpO2 of 89%. At time of the event patient's VS were taken and reported as, Temp 98.7F BP 134/74 HR 110 RR 19 SpO2 89%. No changes in baseline mental state noted. 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 Upon arrival to the ED was found to be febrile, tachypneic, tachycardic, and hypoxic w/ SpO2 of 87% on room air. He does have dysphagia. No underlying lung disease or hypoxia. Now known to have had recent hospitalizations or other illness. ED Work-Up Temp 101.6 F BP 152/72 mmHg HR 104 RR 32 SpO2 87% WBC 15.8 HGB 16.3 PLT 305 PT 12.0 INR 1.0 aPTT 28 NA 138 K 3.9 MG 1.3 CL 101 CA 9.0 CO2 26 BUN 22 CR 0.60 GLU 256 Lactate 1.8 PCT 0.21 Trop < 0.012 BNP < 100 In ED patient was volume resuscitated per sepsis criteria. Blood cultures were collected. Patient was given a dose of vancomycin and cefepime. Patient History Medical History CVA (cerebral vascular accident) (Acute) Coronary artery disease (Acute) Diabetes (Acute) Hyperlipidemia (Acute) Hypertension (Acute) Social History (Updated 09/06/18 @ 03:27 by Ca Botnick, DO) lives independently: [facility] housing[facility] Family & Social History Social History: lives independently No Meds Home Medications Medication Instructions Recorded Confirmed Type glyburide 5 mg PO QDAY #30 05/17/12 Rx CHLORTHALIDONE (#HYGROTON) 25 mg PO QDAY #90 05/24/12 Rx Cane: Single Point Adjustable Cane dev #1 06/04/12 Rx Clonidine Hydrochloride (#CATAPRES) 0.1 mg PO BID #180 07/13/12 Rx MINOXIDIL (#LONITEN) 5 mg PO BID #90 07/13/12 Rx losartan 100 mg PO QDAY #30 07/13/12 Rx metoprolol succinate [Toprol XL] 200 mg PO BID #60 07/13/12 Rx paroxetine HCl [Paxil] 20 mg PO Q DAY #90 08/03/12 Rx Glucose: Test Strips 0 str #100 08/04/12 Rx Cane: Single Point dev #1 08/09/12 Rx [GRABBER] #0 08/09/12 Rx Phenytoin Sodium, Extended (#AVPAK 100 mg PO TID #270 08/13/12 Rx EXTENDED PHENYTOIN SODIUM) atorvastatin [Lipitor] 80 mg PO QDAY #90 09/02/12 Rx ISOSORBIDE MONONITRATE (#IMDUR) 60 mg PO QDAY #30 10/08/12 Rx Glucose: Home Monitor 0 dev #1 10/11/12 Rx DILTIAZEM HCL (DILTIA XT~) 120 mg PO BID #60 10/27/12 Rx bupropion HCl [Wellbutrin SR] 150 mg PO BID #60 11/15/12 Rx ASPIRIN (#ASPIRIN) 325 mg PO Q DAY #100 11/29/12 Rx BENZONATATE (Tessalon) 200 mg PO TID #20 01/11/13 Rx LISINOPRIL (#PRINIVIL) 40 mg PO BID #180 01/19/13 Rx Glucose: Home Monitor 0 dev DIRECTED #1 01/21/13 Rx Lancet: Device 0 dev QID #1 01/21/13 Rx silver sulfadiazine 0 TOPICAL SEE INSTRUCTIONS #25 gm 01/21/13 Rx metformin [Glucophage] 1,000 mg PO BID #60 tab 02/07/13 Rx ondansetron HCl [Zofran] 4 mg PO Q6HP PRN #30 tab 02/08/13 Rx Allergies Allergy/AdvReac Type Severity Reaction Status Date / Time No Known Allergies Allergy Uncoded 09/09/17 12:17 Review of Systems Review of Systems All systems reviewed & are unremarkable except as noted in HPI and below Exam Vital Signs (past 8 hours): - 09/06/18 01:21 09/06/18 01:29 Temperature 101.6 F H 101.6 F H Pulse Rate 104 H Respiratory Rate 32 H Blood Pressure 152/72 H Pulse Oximetry 87 L Oxygen Delivery Method Room Air Narrative Exam Narrative: Constitutional: NAD Neurologic: Alert, oriented to self, no aware of where he is, unable to give account of past medical history, not oriented to year or season given simple yes / no responses, does not engage in conversation independently right hemiparesis impulsive, screaming out at times Head: NC, AT Eyes: PERRL, EOMI, Ears: external ears normal, no otorrhea Nose: external nose normal, no rhinorrhea or epistaxis Throat: dry MM, poor oral hygiene, oropharynx w/o exudate Neck: no masses, lymphadenopathy, or JVD Chest / Respiratory: equal chest rise, unlabored respiratory effort, no tachypnea RUL - clear, RML / RLL - rales / diminished; ANA and LLL - diminished on 3L O2 Heart / CV: S1S2, no murmur Abdomen / GI: round, moderately distended, non-tender, normoactive BS : no suprapubic tenderness Peripheral / Vascular: mildly cool to touch, DP and PT pulses diminished, peripheral vascular changes, peripheral ulcers w/ scabs noted, no edema Musc: right hemiparesis, RUE and RLL - diminished muscle tone and atrophy, LLE - diminished muscle tone and atrophy noted Skin: generalized dryness of skin, no overt ecchymosis Objective Labs Result Diagrams: 09/06/18 01:30 09/06/18 01:30 Labs: Laboratory Results - last 24 hr 09/06/18 09/06/18 09/06/18 01:30 01:30 01:30 WBC 15.8 H RBC 5.46 Hgb 16.3 Hct 48.0 MCV 88.0 MCH 29.9 MCHC 34.0 RDW 13.8 Plt Count 305 Neut % (Auto) Not Reportable Lymph % (Auto) Not Reportable [place] % (Auto) Not Reportable Eos % (Auto) Not Reportable Baso % (Auto) Not Reportable Lymph # (Auto) Not Reportable [place] # (Auto) Not Reportable Baso # (Auto) Not Reportable Total Counted 100 Seg Neutrophils % 83.0 H Band Neutrophils % 6.0 Lymphocytes % (Manual) 8.0 L Monocytes % (Manual) 3.0 Neutrophils # (Manual) 62785 H RBC Morphology Normal morphology PT 12.0 INR 1.0 APTT 28 Sodium 138 Potassium 3.9 Chloride 101 Carbon Dioxide 26 BUN 22 H Creatinine 0.60 L Estimated GFR > 60.0 BUN/Creatinine Ratio 36.7 H Glucose 256 H Lactate Calcium 9.0 Magnesium 1.3 L Total Bilirubin 0.6 AST 38 ALT 62 Alkaline Phosphatase 162 H Total Creatine Kinase 36 L CK-MB (CK-2) TNP CK-MB (CK-2) Rel Index TNP Troponin I < 0.012 B-Natriuretic Peptide < 100 Total Protein 8.6 H Albumin 4.2 Globulin 4.4 H Albumin/Globulin Ratio 1.0 Lipase Procalcitonin Influenza A & B (PCR) 09/06/18 09/06/18 09/06/18 01:30 01:30 01:30 WBC RBC Hgb Hct MCV MCH MCHC RDW Plt Count Neut % (Auto) Lymph % (Auto) [place] % (Auto) Eos % (Auto) Baso % (Auto) Lymph # (Auto) [place] # (Auto) Baso # (Auto) Total Counted Seg Neutrophils % Band Neutrophils % Lymphocytes % (Manual) Monocytes % (Manual) Neutrophils # (Manual) RBC Morphology PT INR APTT Sodium Potassium Chloride Carbon Dioxide BUN Creatinine Estimated GFR BUN/Creatinine Ratio Glucose Lactate 1.8 Calcium Magnesium Total Bilirubin AST ALT Alkaline Phosphatase Total Creatine Kinase CK-MB (CK-2) CK-MB (CK-2) Rel Index Troponin I B-Natriuretic Peptide Total Protein Albumin Globulin Albumin/Globulin Ratio Lipase 17 L Procalcitonin 0.21 Influenza A & B (PCR) 09/06/18 01:35 WBC RBC Hgb Hct MCV MCH MCHC RDW Plt Count Neut % (Auto) Lymph % (Auto) [place] % (Auto) Eos % (Auto) Baso % (Auto) Lymph # (Auto) [place] # (Auto) Baso # (Auto) Total Counted Seg Neutrophils % Band Neutrophils % Lymphocytes % (Manual) Monocytes % (Manual) Neutrophils # (Manual) RBC Morphology PT INR APTT Sodium Potassium Chloride Carbon Dioxide BUN Creatinine Estimated GFR BUN/Creatinine Ratio Glucose Lactate Calcium Magnesium Total Bilirubin AST ALT Alkaline Phosphatase Total Creatine Kinase CK-MB (CK-2) CK-MB (CK-2) Rel Index Troponin I B-Natriuretic Peptide Total Protein Albumin Globulin Albumin/Globulin Ratio Lipase Procalcitonin Influenza A & B (PCR) Negative Assessment & Plan Assessment & Plan narrative: Acute respiratory failure with hypoxia, present on admission Suspected to be in association w/ aspiration pneumonia - Improving SpO2 level 96% on 3L O2 - Consult RT, RATE, duo-nebs prn, supplemental O2 - titrate for SpO2 > 92% Aspiration pneumonia, suspected on admission Associated w/ acute episode of vomiting. RF: resident of a LTC facility. No recent illness, hospitalization, or abx use; no h/o COPD or structural lung disease Suspected both lobes, CXR final read pending CURB 65 score 2 (BUN > 19 and RR > 30 on presentation), moderate risk Received x1 dose of vancomycin and cefepime - Continue empiric therapy w/ cefepime 2 g Q8H - blood cx pending - PCT - will trend, UA, sputum cx if able. CBC, BMP, Mg on 09/07/2018 Sepsis, meets sepsis criteria, ie SIRS + suspected source of an infection (aspiration), + hypoxia Temp 101.6 F BP 152/72 mmHg HR 104 RR 32 SpO2 87% (acute organ failure)... Lactate is 1.8. Patient is not hypotensive. WBC 15.8 - blood cultures collected in ED - fluid resuscitate 30 ml/kg saline bolus per sepsis criteria, patient to be re-evaluated thereafter in regard to maintenance IVF - obtain UA and culture if indicated, straight cath x1 to obtain sample - supportive care Dysphagia, chronic condition, present on admission Not entirely clear which dysphagia diet he follows - Consult Speech, re: swallow eval and recommendations - Aspiration precautions - Keep NPO until seen and evaluated by speech Hypomagnesemia, present on admission - Replete w/ 2 gm MgSO2 Abdominal Distention, acute, present on admission H/o constipation. BS +. No tenderness. Liver enzymes WNL. 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 and a Humalog SSI - Keep NPO for now, until seen by speech; then can resume AC / HS glucose POC - SSI, low-dose - Lantus 20 units SQ at bedtime History of seizures DAIRY TECHNICIAN on phenytoid sodium 100 mg PO TID - check phenytoin level - seizure precautions - resume DAIRY TECHNICIAN phenytoin, will check with pharmacy if IV equivalent available in am Hx of CVA w/ residual deficits (dysphasia and hemaparesis) He appears to have dementia, potentially of vascular nature, given history of CVA; however, there is no appropriate documentation in his history to support this - Resume DAIRY TECHNICIAN ASA and Plavix History of atrial fibrillation Currently in SR. EKG ST (105), R-BBB , on admission DAIRY TECHNICIAN on Diltiazem CD 120 mg QD and metoprolol tartrate 25 mg BID. Not on NOACs or warfarin. AC w/ Aspirin. Essential Hypertension, chronic condition Currently normotensive. DAIRY TECHNICIAN on Losartan, Diltiazem, and Metoprolol. - Trend BP - Will hold anti-hypertensives at this time CAD w/o angina pectoris, stable chronic condition DAIRY TECHNICIAN on ASA, Plavix, losartan, metoprolol, diltiazem, isosorbide mononitrate, and atorvostatin - Resume ASA, Plavix, statin and isosorbide mononitrate - Hold losartan, metoprolol, and diltiazem at this time (to be re-evaluated) BPH w/ lower urinary tract symptoms - Bladder scan Q6H, is no urine output - Resume DAIRY TECHNICIAN regiemn of flomax and finasteride - Avoid opioids and anti-cholinergic agents Chronic Constipation, stable chronic condition DAIRY TECHNICIAN colace 100 mg BID and Senna 8.6 mg BID - holding until passes swallow eval - Currenly NPO, will give dulcolax 10 mg per rectum x1 today, will plan on resuming oral regimen after evaluated by speech Patient has a DNR form. Allows for medical treatment, IV fluids and classroom monitor as indicated. No intubation or mechanical ventilation. May use less invasive airway support ie CPAP or BiPAP Patient medication list reviewed, and necessary meds started accordingly. The med list needs to be updated in the system by the nurses.
--- NOTE | 2018-09-06 03:57 | P.HP_ITS ---
History of Present Illness Date Patient Seen: 09/06/18 Time Patient Seen: 03:48 Chief complaint: SOB Narrative: HPI is obtained via direct phone call with staff at the [facility] and information received from Dr. Meza. Patient is an unreliable historian as he is oriented to self only. 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 Patient presented via EMS on 09/06/2018 at approximately 1:21 AM with hypoxia. Patient is a resident of [facility], prior to the arrival he found covered in vomit. The staff sat him up and thereafter he had another two episodes of vomiting. Patient is not noted to have been short of breath; however, he was hypoxic w/ SpO2 of 89%. At time of the event patient's VS were taken and reported as, Temp 98.7F BP 134/74 HR 110 RR 19 SpO2 89%. No changes in baseline mental state noted. Events were reported to the strategy director and recommendation made to have patient evaluated in the ED. Upon arrival to the ED was found to be febrile, tachypneic, tachycardic, and hypoxic w/ SpO2 of 87% on room air. He does have dysphagia. No underlying lung disease or hypoxia. Now known to have had recent hospitalizations or other illness. ED Work-Up Temp 101.6 F BP 152/72 mmHg HR 104 RR 32 SpO2 87% WBC 15.8 HGB 16.3 PLT 305 PT 12.0 INR 1.0 aPTT 28 NA 138 K 3.9 MG 1.3 CL 101 CA 9.0 CO2 26 BUN 22 CR 0.60 GLU 256 Lactate 1.8 PCT 0.21 Trop < 0.012 BNP < 100 In ED patient was volume resuscitated per sepsis criteria. Blood cultures were collected. Patient was given a dose of vancomycin and cefepime. Patient History Medical History CVA (cerebral vascular accident) (Acute) Coronary artery disease (Acute) Diabetes (Acute) Hyperlipidemia (Acute) Hypertension (Acute) Social History (Updated 09/06/18 @ 03:27 by Ca Botnick, DO) lives independently: No housing: skilled nursing Family & Social History Social History: lives independently No Meds Home Medications Medication Instructions Recorded Confirmed Type glyburide 5 mg PO QDAY #30 05/17/12 Rx CHLORTHALIDONE (#HYGROTON) 25 mg PO QDAY #90 05/24/12 Rx Cane: Single Point Adjustable Cane dev #1 06/04/12 Rx Clonidine Hydrochloride (#CATAPRES) 0.1 mg PO BID #180 07/13/12 Rx MINOXIDIL (#LONITEN) 5 mg PO BID #90 07/13/12 Rx losartan 100 mg PO QDAY #30 07/13/12 Rx metoprolol succinate [Toprol XL] 200 mg PO BID #60 07/13/12 Rx paroxetine HCl [Paxil] 20 mg PO Q DAY #90 08/03/12 Rx Glucose: Test Strips 0 str #100 08/04/12 Rx Cane: Single Point dev #1 08/09/12 Rx [GRABBER] #0 08/09/12 Rx Phenytoin Sodium, Extended (#AVPAK 100 mg PO TID #270 08/13/12 Rx EXTENDED PHENYTOIN SODIUM) atorvastatin [Lipitor] 80 mg PO QDAY #90 09/02/12 Rx ISOSORBIDE MONONITRATE (#IMDUR) 60 mg PO QDAY #30 10/08/12 Rx Glucose: Home Monitor 0 dev #1 10/11/12 Rx DILTIAZEM HCL (DILTIA XT~) 120 mg PO BID #60 10/27/12 Rx bupropion HCl [Wellbutrin SR] 150 mg PO BID #60 11/15/12 Rx ASPIRIN (#ASPIRIN) 325 mg PO Q DAY #100 11/29/12 Rx BENZONATATE (Tessalon) 200 mg PO TID #20 01/11/13 Rx LISINOPRIL (#PRINIVIL) 40 mg PO BID #180 01/19/13 Rx Glucose: Home Monitor 0 dev DIRECTED #1 01/21/13 Rx Lancet: Device 0 dev QID #1 01/21/13 Rx silver sulfadiazine 0 TOPICAL SEE INSTRUCTIONS #25 gm 01/21/13 Rx metformin [Glucophage] 1,000 mg PO BID #60 tab 02/07/13 Rx ondansetron HCl [Zofran] 4 mg PO Q6HP PRN #30 tab 02/08/13 Rx Allergies Allergy/AdvReac Type Severity Reaction Status Date / Time No Known Allergies Allergy Uncoded 09/09/17 12:17 Review of Systems Review of Systems All systems reviewed & are unremarkable except as noted in HPI and below Exam Vital Signs (past 8 hours): - 09/06/18 01:21 09/06/18 01:29 Temperature 101.6 F H 101.6 F H Pulse Rate 104 H Respiratory Rate 32 H Blood Pressure 152/72 H Pulse Oximetry 87 L Oxygen Delivery Method Room Air Narrative Exam Narrative: Constitutional: NAD Neurologic: Alert, oriented to self, no aware of where he is, unable to give account of past medical history, not oriented to year or season given simple yes / no responses, does not engage in conversation independently right hemiparesis impulsive, screaming out at times Head: NC, AT Eyes: PERRL, EOMI, Ears: external ears normal, no otorrhea Nose: external nose normal, no rhinorrhea or epistaxis Throat: dry MM, poor oral hygiene, oropharynx w/o exudate Neck: no masses, lymphadenopathy, or JVD Chest / Respiratory: equal chest rise, unlabored respiratory effort, no tachypnea RUL - clear, RML / RLL - rales / diminished; ANA and LLL - diminished on 3L O2 Heart / CV: S1S2, no murmur Abdomen / GI: round, moderately distended, non-tender, normoactive BS : no suprapubic tenderness Peripheral / Vascular: mildly cool to touch, DP and PT pulses diminished, peripheral vascular changes, peripheral ulcers w/ scabs noted, no edema Musc: right hemiparesis, RUE and RLL - diminished muscle tone and atrophy, LLE - diminished muscle tone and atrophy noted Skin: generalized dryness of skin, no overt ecchymosis Objective Labs Result Diagrams: 09/06/18 01:30 09/06/18 01:30 Labs: Laboratory Results - last 24 hr 09/06/18 09/06/18 09/06/18 01:30 01:30 01:30 WBC 15.8 H RBC 5.46 Hgb 16.3 Hct 48.0 MCV 88.0 MCH 29.9 MCHC 34.0 RDW 13.8 Plt Count 305 Neut % (Auto) Not Reportable Lymph % (Auto) Not Reportable Mclean % (Auto) Not Reportable Eos % (Auto) Not Reportable Baso % (Auto) Not Reportable Lymph # (Auto) Not Reportable Mclean # (Auto) Not Reportable Baso # (Auto) Not Reportable Total Counted 100 Seg Neutrophils % 83.0 H Band Neutrophils % 6.0 Lymphocytes % (Manual) 8.0 L Monocytes % (Manual) 3.0 Neutrophils # (Manual) 25763 H RBC Morphology Normal morphology PT 12.0 INR 1.0 APTT 28 Sodium 138 Potassium 3.9 Chloride 101 Carbon Dioxide 26 BUN 22 H Creatinine 0.60 L Estimated GFR > 60.0 BUN/Creatinine Ratio 36.7 H Glucose 256 H Lactate Calcium 9.0 Magnesium 1.3 L Total Bilirubin 0.6 AST 38 ALT 62 Alkaline Phosphatase 162 H Total Creatine Kinase 36 L CK-MB (CK-2) TNP CK-MB (CK-2) Rel Index TNP Troponin I < 0.012 B-Natriuretic Peptide < 100 Total Protein 8.6 H Albumin 4.2 Globulin 4.4 H Albumin/Globulin Ratio 1.0 Lipase Procalcitonin Influenza A & B (PCR) 09/06/18 09/06/18 09/06/18 01:30 01:30 01:30 WBC RBC Hgb Hct MCV MCH MCHC RDW Plt Count Neut % (Auto) Lymph % (Auto) Mclean % (Auto) Eos % (Auto) Baso % (Auto) Lymph # (Auto) Mclean # (Auto) Baso # (Auto) Total Counted Seg Neutrophils % Band Neutrophils % Lymphocytes % (Manual) Monocytes % (Manual) Neutrophils # (Manual) RBC Morphology PT INR APTT Sodium Potassium Chloride Carbon Dioxide BUN Creatinine Estimated GFR BUN/Creatinine Ratio Glucose Lactate 1.8 Calcium Magnesium Total Bilirubin AST ALT Alkaline Phosphatase Total Creatine Kinase CK-MB (CK-2) CK-MB (CK-2) Rel Index Troponin I B-Natriuretic Peptide Total Protein Albumin Globulin Albumin/Globulin Ratio Lipase 17 L Procalcitonin 0.21 Influenza A & B (PCR) 09/06/18 01:35 WBC RBC Hgb Hct MCV MCH MCHC RDW Plt Count Neut % (Auto) Lymph % (Auto) Mclean % (Auto) Eos % (Auto) Baso % (Auto) Lymph # (Auto) Mclean # (Auto) Baso # (Auto) Total Counted Seg Neutrophils % Band Neutrophils % Lymphocytes % (Manual) Monocytes % (Manual) Neutrophils # (Manual) RBC Morphology PT INR APTT Sodium Potassium Chloride Carbon Dioxide BUN Creatinine Estimated GFR BUN/Creatinine Ratio Glucose Lactate Calcium Magnesium Total Bilirubin AST ALT Alkaline Phosphatase Total Creatine Kinase CK-MB (CK-2) CK-MB (CK-2) Rel Index Troponin I B-Natriuretic Peptide Total Protein Albumin Globulin Albumin/Globulin Ratio Lipase Procalcitonin Influenza A & B (PCR) Negative Assessment & Plan Assessment & Plan narrative: Acute respiratory failure with hypoxia, present on admission Suspected to be in association w/ aspiration pneumonia - Improving SpO2 level 96% on 3L O2 - Consult RT, RATE, duo-nebs prn, supplemental O2 - titrate for SpO2 > 92% Aspiration pneumonia, suspected on admission Associated w/ acute episode of vomiting. RF: resident of a LTC facility. No recent illness, hospitalization, or abx use; no h/o COPD or structural lung disease Suspected both lobes, CXR final read pending CURB 65 score 2 (BUN > 19 and RR > 30 on presentation), moderate risk Received x1 dose of vancomycin and cefepime - Continue empiric therapy w/ cefepime 2 g Q8H - blood cx pending - PCT - will trend, UA, sputum cx if able. CBC, BMP, Mg on 09/07/2018 Sepsis, meets sepsis criteria, ie SIRS + suspected source of an infection (aspiration), + hypoxia Temp 101.6 F BP 152/72 mmHg HR 104 RR 32 SpO2 87% (acute organ failure)... Lactate is 1.8. Patient is not hypotensive. WBC 15.8 - blood cultures collected in ED - fluid resuscitate 30 ml/kg saline bolus per sepsis criteria, patient to be re- evaluated thereafter in regard to maintenance IVF - obtain UA and culture if indicated, straight cath x1 to obtain sample - supportive care Dysphagia, chronic condition, present on admission Not entirely clear which dysphagia diet he follows - Consult Speech, re: swallow eval and recommendations - Aspiration precautions - Keep NPO until seen and evaluated by speech Hypomagnesemia, present on admission - Replete w/ 2 gm MgSO2 Abdominal Distention, acute, present on admission H/o constipation. BS +. No tenderness. Liver enzymes WNL. 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 units daily and a Humalog SSI - Keep NPO for now, until seen by speech; then can resume AC / HS glucose POC - SSI, low-dose - Lantus 20 units SQ at bedtime History of seizures TUBING MILL SETTER on phenytoid sodium 100 mg PO TID - check phenytoin level - seizure precautions - resume TUBING MILL SETTER phenytoin, will check with pharmacy if IV equivalent available in am Hx of CVA w/ residual deficits (dysphasia and hemaparesis) He appears to have dementia, potentially of vascular nature, given history of CVA; however, there is no appropriate documentation in his history to support this - Resume TUBING MILL SETTER ASA and Plavix History of atrial fibrillation Currently in SR. EKG ST (105), R-BBB , on admission TUBING MILL SETTER on Diltiazem CD 120 mg QD and metoprolol tartrate 25 mg BID. Not on NOACs or warfarin. AC w/ Aspirin. Essential Hypertension, chronic condition Currently normotensive. TUBING MILL SETTER on Losartan, Diltiazem, and Metoprolol. - Trend BP - Will hold anti-hypertensives at this time CAD w/o angina pectoris, stable chronic condition TUBING MILL SETTER on ASA, Plavix, losartan, metoprolol, diltiazem, isosorbide mononitrate, and atorvostatin - Resume ASA, Plavix, statin and isosorbide mononitrate - Hold losartan, metoprolol, and diltiazem at this time (to be re-evaluated) BPH w/ lower urinary tract symptoms - Bladder scan Q6H, is no urine output - Resume TUBING MILL SETTER regiemn of flomax and finasteride - Avoid opioids and anti-cholinergic agents Chronic Constipation, stable chronic condition TUBING MILL SETTER colace 100 mg BID and Senna 8.6 mg BID - holding until passes swallow eval - Currenly NPO, will give dulcolax 10 mg per rectum x1 today, will plan on resuming oral regimen after evaluated by speech Patient has a DNR form. Allows for medical treatment, IV fluids and cardiac monitor technician as indicated. No intubation or mechanical ventilation. May use less invasive airway support ie CPAP or BiPAP Patient medication list reviewed, and necessary meds started accordingly. The med list needs to be updated in the system by the nurses.
[2018-09-06] MEDS: VANCOMYCIN 1,250 MG in SODIUM CHLORIDE 0.9% 250 ML IV (04:22)
[2018-09-06] MEDS: CEFEPIME 2 GM in SODIUM CHLORIDE 0.9% 100 ML 200 ML IV ×3 (04:30→18:53)
[2018-09-06 05:19] LABS: Bilirubin Urine UA NEGATIVE (NEGATIVE); Color Urine UA YELLOW; Glucose Urine UA 1+ g/dL (Negative); Ketones Urine UA NEGATIVE (NEGATIVE); Leukocyte Esterase Urine UA TRACE (NEGATIVE); Nitrite Urine UA NEGATIVE (Negative); Occult Blood Urine UA 2+ (Negative); Protein Urine UA 2+ (Negative); Specific Gravity Urine UA >=1.030 (1.000-1.035); Urobilinogen Urine UA 0.2 E.U./dL (0.2)
[2018-09-06 05:26] LABS: Appearance Urine UA SL CLOUDY; RBC Urine 1-5/HPF (0-5/HPF)
[2018-09-06 05:27] LABS: Amorphous Sediment Urine 2+; Bacteria Urine Few (2-10); Squamous Epithelial Cell Urine 1-5 /HPF (0-5/HPF); WBC Urine 1-5/HPF (0-5/HPF)
[2018-09-06 05:28] LABS: Culture Indicated Urine Specimen Cultured
[2018-09-06] MEDS: MAGNESIUM SULFATE 2 GM/50 ML PIGGYBACK IV (05:45)
--- NOTE | 2018-09-06 06:12 | PC.NURSE ---
Pt arrived on unit at approx 0350. VSS, afebrile, on sepsis resuscitation IVF. Pt is in SR, reg. LS R UL clear, L all lobes diminished. Pt voiding in brief as well a straight cath for UA, clear yellow. Pt has significant R sided hemiparesis, and does not like to have his R UE touched. Pt can answer yes or no or single word questions. He does flair up and becomes loud and combative with his L arm. He is on 3L NC to stay above 92%. Pt has + BTs.
[2018-09-06] MEDS: BISACODYL 10 MG SUPP PR (08:25)
[2018-09-06] MEDS: SODIUM CHLORIDE 0.9% IV ×3 (08:43→20:53)
[2018-09-06] MEDS: FOSPHENYTOIN IV ×3 (08:43→20:53)
[2018-09-06 09:09] LABS: Phenytoin / Dilantin 10.8 ug/mL (10-20)
[2018-09-06] MEDS: HEPARIN 5,000 UNIT/ML VIAL 5000 UNIT SUBCUT ×2 (09:17→20:52)
[2018-09-06] MEDS: INSULIN ASPART 100 UNIT/ML INSULN PEN SUBCUT ×4 (09:17→20:52)
[2018-09-06] MEDS: SODIUM CHLORIDE 0.9% 1,000 ML 75 ML IV (11:16)
--- NOTE | 2018-09-06 15:18 | CM.DANOTE ---
Patient is a 63 year old male who was admitted on 09/06/18 for SOB. Pt has [employer] for insurance and his PCP is Dr. Estefany Yoon. EMR was reviewed. Per MD, pt with sepsis and aspiration pneumonia and memory issues and not the best historian. SW attempted to meet bedside with pt but pt requested SW to come back later. SW spoke to Lupe at [facility] and she confirms that the pt is a resident at their facility and very directive of his care regarding what he wants and doesn't want. Pt mostly remains in his bed and typically only leaves his bed about once a week. Pt requires that staff speak slowly and directly and clearly explain pt's options and the treatment being provided or he will become easily agitated and frustrated. KOSTA discussed that a recommendation of SNF rehab may be offered and Lupe was doubtful that the pt would be motivated enough to participate in rehab but Lupe will follow along to determine pt's needs at d/c. Lupe thinks that pt's DPOA is his brother Les but she will confirm as no documentation in pt's chart here at the hospital although copy of [facility] is available. Plan: SW to follow closely after ST eval and possible need for PT/OT eval to determine d/c planning needs and if pt will be close to baseline for return to [facility]. Coordinate closely with Lupe from [facility]. DORY Vallejo Discharge Planning/Care Management CM Discharge Assessment Start: 09/06/18 15:15 Freq: Status: Active Protocol: Document 09/06/18 15:16 BF (Rec: 09/06/18 15:18 BF [id number]) Discharge Planning Assessment Assigned Java Software Architect DORY Le Advance Directives? Yes Advance Directives on File Yes History Provided By Patient Medical Record Has Patient been admitted in last 30 No days? Prior Living Arrangements Assisted Living Household Members other Type of transporation used prior to Relies on Others admit Facility Name Admitted From: [facility] Willing to Return to Facility? Yes Independent with ADL's No Is patient alert and oriented? No: some dementia/memory care issues Needs Assistance With Meal Prep Managing Medications Home Chores / Shopping Caregiver for Another No DME Already Rented / Owned Wheelchair FWW / Walker Comment Waiting for ST and likely PT eval to determine d/c needs Discharge Plan Assisted Living Facility Transportation Arrangement Facility likely to provide transport at d/c. Additional Comment Waiting for further eval and recommendations to determine d /c needs Review Status In Process Please Provide Date Initial DC 09/06/18 Assessment Was Performed Next Review Type Continued Stay Review
--- NOTE | 2018-09-06 17:30 | PC.NURSE ---
Addendum entered by Melissa Lewis R.N. 09/06/18 22:28: Patient incontinent of large amt of urine, brief & gown changed. Pt is cooperative at times, but sometimes he flails his arm at this nurse. When I asked if we could change his gown he looked at me with wild eyes and shook up his left fist at me several times. Continued to flail arm with purposeful movement at this nurse, looking at me in the eye. This nurse stood back & stopped talking to patient. LOAD MANAGER present, LOAD MANAGER told patient directly he was going to change patient's gown & did so without patient becoming combative. Will pass on in report to always have 2 staff members present. 2nd nasal swab ordered but due to patient's combativeness & agitation. Original Note: Unable to obtain respiratory swab for panel. Patient shakes head violently and pushed nurse hand/swab away forcefully yelling hey! twice. When reoriented to situation & rationale for swab he just keeps yelling ok but when nurse then asks him to hold head still & tries again he immediately shakes head & pushes me away forcefully. This nurse not going to attempt another swab due to patient agitation & combativeness.
[2018-09-06] MEDS: INSULIN GLARGINE 100 UNIT/ML 3ML PEN 20 UNIT SUBCUT (20:52)
[2018-09-07] VITALS (11 sets, daily range): BP systolic 114–156; BP diastolic 63–86; PULSE 71–91; RESP 16–24; TEMP 36.6–37.4; O2SAT 90–96; BMI 24.0
[2018-09-07] MEDS: SODIUM CHLORIDE 0.9% 1,000 ML 75 ML IV (01:51)
--- NOTE | 2018-09-07 02:00 | PC.NURSE ---
Respiratory panel ordered during previous shift on 09/06/2018. Swab attempted into the right nostril, but the patient swung his left arm and turned his head away. I asked the patient if we could try again and he yelled out no. The hospitalist, Naldo Maurer, was notified that we were unable to collect the respiratory panel.
[2018-09-07] MEDS: CEFEPIME 2 GM in SODIUM CHLORIDE 0.9% 100 ML 200 ML IV (02:57)
[2018-09-07 04:25] LABS: Add Manual Diff / Slide Review NO; Basophils Absolute Auto 100 /uL (0-100); Basophils Percent Auto 0.3 % (0-2); Eosinophils Absolute Auto 100 /uL (0-450); Eosinophils Percent Auto 0.7 % (2-4); Hematocrit 40.7 % (41-53); Hemoglobin 13.8 g/dL (13.5-17.5); Lymphocytes Absolute Auto 1700 /uL (1100-4500); Lymphocytes Percent Auto 8.1 % (25-40); Mean Corpuscular Hemoglobin 30.1 PG (26-34); Mean Corpuscular Volume 88.5 fL (80-100); Monocytes Absolute Auto 1400 /uL (0-900); Monocytes Percent Auto 6.8 % (3-14); Neutrophils Absolute Auto 17200 /uL (1500-7000); Neutrophils Percent Auto 84.1 % (50-75); Platelet Count 222 X10^3/uL (150-400); Red Cell Distribution Width 13.8 % (11.6-14.8); White Blood Cell Count 20.5 X10^3/uL (4.5-11.0)
[2018-09-07 04:34] LABS: BUN Creatinine Ratio 21.7 (6-22); Blood Urea Nitrogen 13 mg/dL (9-20); Calcium 8.2 mg/dL (8.4-10.2); Carbon Dioxide 28 mmol/L (22-32); Chloride 103 mmol/L (98-107); Estimated Glomerular Filt Rate > 60.0 mL/min (>60); Glucose 126 mg/dL (80-110); HEMOLYSIS 15 (0-50); Magnesium 1.7 mg/dL (1.6-2.3); Potassium 3.7 mmol/L (3.4-5.1); Sodium 138 mmol/L (137-145)
[2018-09-07 04:49] LABS: Procalcitonin 4.23 ng/mL (<0.5)
--- NOTE | 2018-09-07 07:50 | PM.PN.1 ---
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 His white count is elevated to 20.5 with a procalcitonin of 4.23. He denies all respiratory symptoms but does have cough infrequently. He has no complaints overall. He has known cognitive impairment vs dementia from previous stroke and has behavior reminiscent of autism. He answers most questions with yes and no. He reports that he does not remember what he ate for breakfast but he has a good appetite. He has some behavioral issues in regard to temperament and has a trigger word which is OK. He denies headache, cough, shortness of breath, chest pain, abdominal pain, nausea, vomiting, fever, chills, diarrhea or constipation. He does endorse urinary urgency but no other urinary symptoms including dysuria or frequency. He is positive for group B strep less than 10,000 CFU which is unlikely source of infection. He is incontinent but voiding and eliminating without difficulty. Exam Vital Signs (past 8 hours): - 09/07/18 02:30 09/07/18 04:22 09/07/18 04:25 Temperature 99.4 F 99.4 F Pulse Rate 86 91 H Respiratory Rate 24 24 Blood Pressure 156/86 H 143/77 H Pulse Oximetry 90 L 94 94 Oxygen Delivery Method Room Air Oxygen Flow Rate 0 Narrative Exam Narrative: General: Middle-aged gentleman lying in bed and in no acute distress, appears older than stated age and chronically ill, well-developed, well-nourished, previous stroke with cognitive impairment vs dementia and mostly answers questions with yes and no only. HEENT: Normocephalic, atraumatic. External ears without defect. Pupils equal, round, and reactive to light. Anicteric sclerae, moist conjunctivae, and no lid lag. Neck: Supple with full range of motion. No lymphadenopathy or thyromegaly. Cardiovascular: Regular rate and rhythm without murmurs, rubs, or gallops appreciated. Pulmonary: Clear to auscultation bilaterally with occasional scattered rhonchi. No crackles or wheeze. Normal respiratory effort with no use of accessory muscles. Abdomen: Soft, bowel sounds present, non-tender, non-distended. No hepatosplenomegaly or masses appreciated. Extremities: No clubbing, cyanosis, or edema. Skin: Normal temperature, turgor, and texture; no rash, ulcers, or subcutaneous nodules appreciated. Neurological: Cranial nerves grossly intact. Psychiatric: Previous stroke with cognitive impairment vs dementia and mostly answers questions with yes and no only. Objective Labs Result Diagrams: 09/09/18 05:46 09/09/18 05:46 Labs: Laboratory Results - last 24 hr 09/06/18 09/07/18 09/07/18 08:50 04:13 04:13 WBC 20.5 H RBC 4.60 Hgb 13.8 Hct 40.7 L MCV 88.5 MCH 30.1 MCHC 34.0 RDW 13.8 Plt Count 222 Neut % (Auto) 84.1 H Lymph % (Auto) 8.1 L [place] % (Auto) 6.8 Eos % (Auto) 0.7 L Baso % (Auto) 0.3 Neut # (Auto) 63410 H Lymph # (Auto) 1700 [place] # (Auto) 1400 H Eos # (Auto) 100 Baso # (Auto) 100 Sodium Potassium Chloride Carbon Dioxide BUN Creatinine Estimated GFR BUN/Creatinine Ratio Glucose Calcium Magnesium Procalcitonin 4.23 H Phenytoin 10.8 09/07/18 04:13 WBC RBC Hgb Hct MCV MCH MCHC RDW Plt Count Neut % (Auto) Lymph % (Auto) [place] % (Auto) Eos % (Auto) Baso % (Auto) Neut # (Auto) Lymph # (Auto) [place] # (Auto) Eos # (Auto) Baso # (Auto) Sodium 138 Potassium 3.7 Chloride 103 Carbon Dioxide 28 BUN 13 Creatinine 0.60 L Estimated GFR > 60.0 BUN/Creatinine Ratio 21.7 Glucose 126 H D Calcium 8.2 L Magnesium 1.7 Procalcitonin Phenytoin Assessment & Plan Assessment & Plan narrative: Vish Marks is a 63-year-old male with a past medical history significant for CAD, 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 1. Acute sepsis, present on admission. Resolved. -Meets sepsis criteria: Temp 101.6 F, HR 104, RR 32, WBC 15.8, SpO2 87% with suspected source of infection aspiration. -Early goal-directed therapy med including IV fluid resuscitation and broad-spectrum antibiotics. -Lactic acid normal. 2. Acute hypoxemic respiratory failure, secondary to aspiration, present on admission. Resolved. -Patient presented with hypoxemic with SpO2 87% on room air after being found covered in vomit with probable aspiration event. -Consulted respiratory therapy for evaluation and treatment. Continue supplemental oxygen as needed to keep oxygen saturations 92% and above. Continue duonebs every 6 hours as needed. 3. Acute aspiration pneumonia, present on admission. Active. -Patient resides at a long-term care facility and was found covered in vomit with hypoxemia with probable aspiration event. No recent illness, hospitalization, or antibiotic use; no h/o COPD or structural lung disease. -Chest x-ray demonstrated bilateral infiltrate. -WBC 20.5 and PCT 4.23. Continue to trend. -Received vancomycin x 1 dose and cefepime. Switched to Zosyn 3.375 g every 8 hours to cover broad-spectrum gram-positive and gram-negative bacteria, as well as, anaerobes. -Ordered complete pneumonia workup including: Respiratory viral PCR negative. Strep pneumoniae and Legionella urine antigens, pending. Blood cultures x2 have no growth to date -He is positive for group B strep less than 10,000 CFU with little to no urinary symptoms likely customer retention representative of asymptomatic bacteriuria. Not cause of infection. 4. Dysphagia, acute on chronic, present on admission -Not entirely clear which dysphagia diet he follows. -Consulted speech therapy for evaluation and treatment. Recommended soft mechanical diet with thins. Signed off. -Continue aspiration precautions and keep head of bed up at 30? at all times. 5. Acute hypomagnesemia, present on admission. Resolved. -Initial magnesium 1.3. Received magnesium sulfate 2 g IV x1. Will continue tomonitor and replete as necessary. 6. Abdominal distention, acuity unclear, present on admission. Resolved. -History of constipation. BS +. No tenderness. Liver enzymes WNL. -Consider XR abdominal series versus CT abdomen and pelvis. 7. Diabetes mellitus type 2, insulin using, chronic, present on admission. Stable. -Hemoglobin A1c 8.8% on 07/2018. -Restarted lantus 26 units daily tomorrow and cover with half normal today. -Continue blood glucose Checks ACHS and low-dose correctional scale insulin. -Continue dysphagia mechanical with nectar thick liquids per ST. 8. 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 Stable. -He appears to have cognitive impairment vs dementia, potentially of vascular nature, given history of CVA. -Continue aspirin 81 mg daily and Plavix 75 mg daily. 9. History of seizures, chronic, present on admission. Stable. -Possibly secondary to previous CVA. -Continue Dilantin 100 mg 3 times daily. -Dilantin level therapeutic at 10.8. -Continue seizure precautions. 10. Paroxysmal atrial fibrillation, chronic, present on admission. Stable. -Currently in SR. EKG ST 105 with RBBB on admission. -Continue Diltiazem CD 120 mg daily and metoprolol tartrate 25 mg twice daily. Not on NOACs or warfarin. Continue aspirin 81 mg daily. 11. Hypertension, chronic, present on admission. Stable. -Continue losartan, diltiazem, and metoprolol. BP well controlled. 12. CAD, chronic, present on admission. Stable. -No chest pain or active disease. -Continue aspirin, Plavix, losartan, metoprolol, diltiazem, isosorbide mononitrate, and atorvastatin. 13. BPH, chronic, present on admission. Stable. -Continue flomax 0.4 mg and finasteride 5 mg daily at bedtime. 14. Chronic constipation, present on admission. Stable -Continue colace 100 mg twice daily and Senna 8.6 mg twice daily. Disposition: Likely to return to assisted living facility at [facility] once he has been treated for aspiration pneumonia and infectious markers resolving.
[2018-09-07] MEDS: PIPERACILLIN-TAZO 3.375 GM/50 ML FROZ.PIGGY IV ×3 (08:46→21:22)
[2018-09-07] MEDS: HEPARIN 5,000 UNIT/ML VIAL 5000 UNIT SUBCUT ×2 (08:47→21:20)
[2018-09-07] MEDS: INSULIN GLARGINE 100 UNIT/ML 3ML PEN 13 UNIT SUBCUT (08:48)
[2018-09-07] MEDS: PHENYTOIN ER 100 MG CAPSULE PO ×3 (08:55→21:20)
[2018-09-07] MEDS: dilTIAZem CD 120 MG CAP PO (08:55)
[2018-09-07] MEDS: METOPROLOL IR 25 MG TABLET PO ×2 (08:56→21:18)
[2018-09-07] MEDS: CLOPIDOGREL 75 MG TABLET PO (08:56)
[2018-09-07] MEDS: ISOSORBIDE MONONITRATE ER 60 MG PO (08:56)
[2018-09-07] MEDS: PARoxetine 20 MG TABLET 40 MG PO (08:56)
[2018-09-07] MEDS: ASPIRIN 81 MG TAB PO (08:56)
[2018-09-07] MEDS: LOSARTAN 50 MG TABLET 100 MG PO (08:56)
[2018-09-07 11:47] LABS: Adenovirus Not Detected (Not Detect); Bordetella pertussis Not Detected (Not Detect); Chlamydophila pneumoniae Not Detected (Not Detect); Coronavirus 229E Not Detected (Not Detect); Coronavirus HKU1 Not Detected (Not Detect); Coronavirus NL 63 Not Detected (Not Detect); Coronavirus OC43 Not Detected (Not Detect); Human Metapneumovirus Not Detected (Not Detect); Human Rhinovirus/Enterovirus Not Detected (Not Detect); Influenza A Not Detected (Not Detect); Influenza B Not Detected (Not Detect); Mycoplasma pneumoniae Not Detected (Not Detect); Parainfluenza Virus 1 Not Detected (Not Detect); Parainfluenza Virus 2 Not Detected (Not Detect); Parainfluenza Virus 3 Not Detected (Not Detect); Parainfluenza Virus 4 Not Detected (Not Detect); Respiratory Syncytial Virus Not Detected (Not Detect)
[2018-09-07] MEDS: INSULIN ASPART 100 UNIT/ML INSULN PEN SUBCUT ×3 (11:52→21:18)
--- NOTE | 2018-09-07 11:56 | SLP.IPNOTE ---
Attempted dysphagia tx. Pt declined. Will attempt again this afternoon.
--- NOTE | 2018-09-07 15:27 | ST.IPDYTX ---
Care Team Visit Care Team Role Provider Type Estefany Yoon MD Family Provider Physician Primary Care Provider Specialty: Medical Address: [address], [address] Email: aC Zavala DO Emergency Provider Physician Specialty: Emergency Medicine Address: [address] [place] [address], [id number] Email: PIERRE Del Toro Admit Provider Advanced Vice President Of Product Marketing Attending Provider Specialty: Internal Medicine Address: [address] [place] [address], [id number] Email: FORENSIC ANTHROPOLOGIST Dysphagia Treatment FORENSIC ANTHROPOLOGIST Dysphagia Treatment Start: 09/07/18 14:50 Freq: Status: Active Protocol: Document 09/07/18 14:54 MG (Rec: 09/07/18 15:16 MG [id number]) Dysphagia Treatment Session Time Visit Start Time 13:55 Visit Stop Time 14:15 Total Visit Minutes 20 Setting Assessment Location Acute Care Visit Type Note Type Treatment Note Patient Information Identification Type Name ID Wristband Subjective Observations Pt was alert in bed sitting upright. Pt did not get combative and was in an agreeable mood. He consented to student FORENSIC ANTHROPOLOGIST and FORENSIC ANTHROPOLOGIST entering the room to treat and observe. Treatment Liquids Trialed Thin Solids Trialed Mechanical Soft Administration Type Straw Self-Feeding Oral Strategies Upright at 90 degrees Controlled Bite/Sip Size Alternate Liquids/Solids Pharyngeal Strategies Sitting Upright (90 deg) Small Bites and Sips Alternate Liquids/Solids Treatment Activities Pt was observed eating mechanical soft textures of diced fruit and soft cookies. Pt's mastication, bolus formation, and bolus control as well as swallow response are judged to be within functional limits at this time . Hyolaryngeal elevation also appeared to be within functional limits at this time . Pt took sips of water via straw in between bites of food . Throughout the time observed , pt did not cough or have a wet voice after eating and drinking. After a few bites of food, the FORENSIC ANTHROPOLOGIST looked inside of his mouth and noted the bolus had cleared the oral cavity and there was no residue on any oral structures . Pt reported that he had no sensation of food getting stuck or not being able to swallow what was presented to him. He was successfully self- feeding himself throughout the time observed. Assessment Patient Response to Treatment Good Rehab Potential Good Assessment of Improvement Pt is tolerating the diet without demonstrating overt signs of aspiration. Will discharge patient from skilled ST at this time. Diet Recommendations Recommendations Continue Current Diet Liquids Order Thin Diet Order Mechanical Soft Medication Recommendations Crushed in Carrier Aspiration Precautions Recommended Precautions Upright at 90 Degrees Alternate Liquids/Solids Small Bites/Sips Treatment Plan Placement Recommendation after Discharge [facility] Appropriate for Continued Therapy No Therapy Recommendations Discharge 1:1 skilled service at this time. Contact ST if pt 's condition warrants.
[2018-09-07] MEDS: LORATADINE 10 MG TABLET PO (16:40)
[2018-09-07] MEDS: ATORVASTATIN 20 MG TABLET 40 MG PO (16:40)
[2018-09-07] MEDS: ALBUTEROL/IPRATROPIUM 3 ML AMPUL INH (17:32)
[2018-09-08] VITALS (10 sets, daily range): BP systolic 112–162; BP diastolic 68–84; PULSE 65–76; RESP 17–18; TEMP 36.4–37.1; O2SAT 92–94
[2018-09-08] MEDS: PIPERACILLIN-TAZO 3.375 GM/50 ML FROZ.PIGGY IV ×4 (02:03→20:17)
--- NOTE | 2018-09-08 06:00 | DI.RAD.S_ITS ---
PROCEDURE: XR CHEST 1V INDICATIONS: Dyspnea, hypoxia TECHNIQUE: One view of the chest was acquired. COMPARISON: [facility], , XR CHEST 1V, 09/06/2018, 2:11. [facility], , CHEST 2 VIEW, 07/24/2016, 16:17. FINDINGS: Surgical changes and devices: None. Lungs and pleura: Lungs are abnormal with no improvement in the patchy pneumonia pattern previously present 09/06/18. Inspiratory volume remains reduced.. No pleural effusions or pneumothorax. Mediastinum: Mediastinal contours appear normal. Heart size is normal. Bones and chest wall: No suspicious bony lesions. Overlying soft tissues appear unremarkable. IMPRESSION: Patchy atypical pneumonia bilaterally with reduced inspiratory volume has not improved or worsened from 09/06/18. Dictated by: Vijay Thurman M.D. on 09/08/2018 at 9:49 Approved by: Vijay hTurman M.D. on 09/08/2018 at 9:49
[2018-09-08] MEDS: INSULIN ASPART 100 UNIT/ML INSULN PEN SUBCUT ×3 (08:37→17:50)
[2018-09-08] MEDS: INSULIN GLARGINE 100 UNIT/ML 3ML PEN 26 UNIT SUBCUT (08:38)
[2018-09-08] MEDS: HEPARIN 5,000 UNIT/ML VIAL 5000 UNIT SUBCUT ×2 (08:41→20:18)
[2018-09-08] MEDS: PHENYTOIN ER 100 MG CAPSULE PO ×3 (08:41→20:18)
[2018-09-08] MEDS: CLOPIDOGREL 75 MG TABLET PO (08:43)
[2018-09-08] MEDS: METOPROLOL IR 25 MG TABLET PO ×2 (08:43→21:53)
[2018-09-08] MEDS: ISOSORBIDE MONONITRATE ER 60 MG PO (08:43)
[2018-09-08] MEDS: ASPIRIN 81 MG TAB PO (08:43)
[2018-09-08] MEDS: LOSARTAN 50 MG TABLET 100 MG PO (08:43)
[2018-09-08] MEDS: PARoxetine 20 MG TABLET 40 MG PO (11:25)
[2018-09-08] MEDS: dilTIAZem CD 120 MG CAP PO (11:26)
--- NOTE | 2018-09-08 13:00 | OT.IP.TRT ---
Current Diagnoses Sepsis, unspecified organism (09/06/18) Occupational Therapy Treatment Note M3 OT- IP Subjective and Pain Start: 09/08/18 14:47 Freq: Status: Active Protocol: Document 09/08/18 13:00 PJKatherine (Rec: 09/08/18 14:56 PJM [id number]) OT- Subjective Occupational Therapy Visit Type Type Administrative Note Visit Start Time 13:00 Notes OT referral received on this 63 yr old pt admitted from [facility] with aspiration PNA after episode of vomiting. Medical HX includes previous stroke with R hemiplegia, aphasia, dysarthria, cognitive deficits. See H&P for further details. Pt is on soft dysphagia diet with thin liquids. Per staff at [facility], pt is bedridden and requires luis fernando lift for transfer to w/c or rolling shower chair. Pt agrees to get out of bed less than 1x week. Pt able to feed himself after set up in bed with intermittent supervision, but otherwise is total assist with all grooming, dressing and bathing in roll in shower. Pt is incontinent of bowel and bladder and requires total assist for cleanup. He does not get up to bedside commode. Attempted to see pt at meal to assess self feeding, but he declined any further intake after therapist arrived. Will attempt to assess pt at breakfast in AM. Self feeding is pt's only functional OT goal based on staff report of his prior level of function. No charge.
--- NOTE | 2018-09-08 13:31 | PT.IPTN ---
Current Diagnoses Sepsis, unspecified organism (09/06/18) Physical Therapy Treatment Note M3 PT-IP Subjective Start: 09/08/18 13:28 Freq: NEEDED Status: Active Protocol: Document 09/08/18 13:28 (Rec: 09/08/18 13:31 [id number]) Subjective Physical Therapy Visit Type Type Administrative Note Visit Start Time 13:25 Notes Per OT Marialuisa, she reached out [facility] for info of pt's PLOF. Pt has been bed bound and non ambulatory. Pt typically only leaves his bed about once a week. Pt does not have goals/ needs for PT at this point and pt is at his baseline.
--- NOTE | 2018-09-08 13:49 | P.PN_ITS ---
Subjective Date Patient Seen: 09/08/18 Interval history: Chart reviewed patient seen and examined. Patient denies any shortness of breath or cough. He no longer is requiring oxygen. He has been afebrile. He denies any pain. The patient was admitted to the hospital yesterday for aspiration pneumonia. Patient was seen by speech who upgraded him to a mechanical soft diet. Exam Vital Signs (past 8 hours): - 09/08/18 07:55 09/08/18 08:00 09/08/18 12:00 Temperature 97.8 F 98.3 F Pulse Rate 72 71 Respiratory Rate 18 18 Blood Pressure 162/80 H 141/68 H Pulse Oximetry 92 92 94 Oxygen Delivery Method Room Air Oxygen Flow Rate 0 Narrative Exam Narrative: Ill appearing male resting in bed Lungs: Decreased breath sounds but otherwise clear Cardiac exam: Regular rate and rhythm normal S1-S2 Abdomen: Soft nontender nondistended, no palpable mass Extremities: No edema Neuro exam: Patient is awake and responsive, he has contractures on the right arm and leg. Objective Labs Result Diagrams: 09/07/18 04:13 09/07/18 04:13 Assessment & Plan Assessment & Plan narrative: Acute sepsis, present on admission. Resolved. -Meets sepsis criteria: Temp 101.6 F, HR 104, RR 32, WBC 15.8, SpO2 87% with suspected source of infection aspiration. -Early goal-directed therapy med including IV fluid resuscitation and broad- spectrum antibiotics. -Lactic acid normal. 2. Acute hypoxemic respiratory failure, secondary to aspiration, present on admission. Resolved. -Patient presented with hypoxemic with SpO2 87% on room air after being found covered in vomit with probable aspiration event. -Consulted respiratory therapy for evaluation and treatment. Continue supplemental oxygen as needed to keep oxygen saturations 92% and above. Continue duonebs every 6 hours as needed. 3. Acute aspiration pneumonia, present on admission. Active. -Patient resides at a long-term care facility and was found covered in vomit with hypoxemia with probable aspiration event. No recent illness, hospitalization, or antibiotic use; no h/o COPD or structural lung disease. -Chest x-ray demonstrated bilateral infiltrate. -Received vancomycin x 1 dose and cefepime. Switch to Zosyn 3.375 g every 8 hours to cover broad-spectrum gram-positive and gram-negative bacteria, as well as, anaerobes. -Ordered complete pneumonia workup including: Respiratory viral PCR negative. Strep pneumoniae and Legionella urine antigens, pending. Blood cultures x2 have no growth to date -He is positive for group B strep less than 10,000 CFU with little to no urinary symptoms likely business center representative of asymptomatic bacteriuria. Not cause of infe ction. WBC still elevated. Will continue to trend Dysphagia, chronic, present on admission -Not entirely clear which dysphagia diet he follows. -Consulted speech therapy for evaluation and treatment. Recommended soft mechanical diet with thins. Signed off. -Continue aspiration precautions and keep head of bed up at 30? at all times. Acute hypomagnesemia, present on admission. Resolved. -Initial magnesium 1.3. Received magnesium sulfate 2 g IV x1. Will continue tomonitor and replete as necessary. Abdominal distention, acuity unclear, present on admission. Resolved. -History of constipation. BS +. No tenderness. Liver enzymes WNL. -Consider XR abdominal series versus CT abdomen and pelvis. Diabetes mellitus type 2, insulin using, chronic, present on admission. Stable. -hemoglobin A1c 8.8% on 07/2018. -Continue lantus 26 units daily -Continue blood glucose CHecks ACHS and low-dose correctional scale insulin. -Continue dysphagia mechanical with nectar thick liquids per ST. History of seizures, chronic, present on admission. Stable. -Continue Dilantin 100 mg 3 times daily. -Dilantin level therapeutic at 10.8. -Continue seizure precautions. 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 Stable. -He appears to have cognitive impairment vs dementia, potentially of vascular nature, given history of CVA. -Continue aspirin 81 mg daily and Plavix 75 mg daily. Paroxysmal atrial fibrillation, chronic, present on admission. Stable. -Currently in SR. EKG ST 105 with RBBB on admission. -Continue Diltiazem CD 120 mg daily and metoprolol tartrate 25 mg twice daily. Not on NOACs or warfarin. Continue aspirin 81 mg daily. Hypertension, chronic, present on admission. Stable. -Continue losartan, diltiazem, and metoprolol. BP well controlled. CAD, chronic, present on admission. Stable. -No chest pain or active disease. -Continue aspirin, Plavix, losartan, metoprolol, diltiazem, isosorbide mononitrate, and atorvastatin. BPH, chronic, present on admission. Stable. -Continue flomax 0.4 mg and finasteride 5 mg daily at bedtime. Chronic constipation, present on admission. Stable -Continue colace 100 mg twice daily and Senna 8.6 mg twice daily.
--- NOTE | 2018-09-08 13:53 | PC.NURSE ---
Resp: Doesn't appear to feel as well this afternoon. Did eat bkft this am except his hashbrowns, he doesn't like them. When asked about how he was doing he gave this nurse the thumbs up sign. However this afternoon he didn't eat lunch and when asked how he was doing made a horizontal hand wave. Shook head no when asked if he was having pain nausea or some type of discomfort. Then indicated he wanted to be left alone. He has taken his meds. Been repositioned. No signs of overt agitation. (yesterday threw his tray lids for his meals to the floor) Has voided inc several times. Cont w/poc.
[2018-09-08] MEDS: LORATADINE 10 MG TABLET PO (17:52)
[2018-09-08] MEDS: ATORVASTATIN 20 MG TABLET 40 MG PO (17:52)
[2018-09-08] MEDS: INSULIN GLARGINE 100 UNIT/ML 3ML PEN 30 UNIT SUBCUT (21:52)
[2018-09-09] VITALS (7 sets, daily range): BP systolic 135–160; BP diastolic 79–85; PULSE 66–71; RESP 16–19; TEMP 36.8–37.1; O2SAT 92–96
[2018-09-09] MEDS: PIPERACILLIN-TAZO 3.375 GM/50 ML FROZ.PIGGY IV ×2 (01:53→08:10)
[2018-09-09 06:11] LABS: BUN Creatinine Ratio 16.7 (6-22); Blood Urea Nitrogen 10 mg/dL (9-20); Calcium 8.1 mg/dL (8.4-10.2); Carbon Dioxide 27 mmol/L (22-32); Chloride 101 mmol/L (98-107); Estimated Glomerular Filt Rate > 60.0 mL/min (>60); Glucose 125 mg/dL (80-110); HEMOLYSIS < 15 (0-50); Potassium 3.1 mmol/L (3.4-5.1); Sodium 137 mmol/L (137-145)
[2018-09-09 06:14] LABS: Add Manual Diff / Slide Review NO; Basophils Absolute Auto 100 /uL (0-100); Basophils Percent Auto 1.1 % (0-2); Eosinophils Absolute Auto 600 /uL (0-450); Eosinophils Percent Auto 4.8 % (2-4); Hematocrit 38.1 % (41-53); Hemoglobin 13.1 g/dL (13.5-17.5); Lymphocytes Absolute Auto 1500 /uL (1100-4500); Lymphocytes Percent Auto 13.3 % (25-40); Mean Corpuscular HGB Conc 34.5 % (30-36); Mean Corpuscular Hemoglobin 30.1 PG (26-34); Mean Corpuscular Volume 87.2 fL (80-100); Monocytes Absolute Auto 1000 /uL (0-900); Monocytes Percent Auto 8.5 % (3-14); Neutrophils Absolute Auto 8200 /uL (1500-7000); Neutrophils Percent Auto 72.3 % (50-75); Platelet Count 251 X10^3/uL (150-400); Red Blood Cell Count 4.37 X10^6/uL (4.5-5.9); Red Cell Distribution Width 13.6 % (11.6-14.8); White Blood Cell Count 11.4 X10^3/uL (4.5-11.0)
[2018-09-09] MEDS: dilTIAZem CD 120 MG CAP PO (08:03)
[2018-09-09] MEDS: CLOPIDOGREL 75 MG TABLET PO (08:03)
[2018-09-09] MEDS: ASPIRIN 81 MG TAB PO (08:03)
[2018-09-09] MEDS: ISOSORBIDE MONONITRATE ER 60 MG PO (08:03)
[2018-09-09] MEDS: METOPROLOL IR 25 MG TABLET PO (08:04)
[2018-09-09] MEDS: LOSARTAN 50 MG TABLET 100 MG PO (08:04)
[2018-09-09] MEDS: PHENYTOIN ER 100 MG CAPSULE PO ×2 (08:04→14:10)
[2018-09-09] MEDS: PARoxetine 20 MG TABLET 40 MG PO (08:04)
[2018-09-09] MEDS: HEPARIN 5,000 UNIT/ML VIAL 5000 UNIT SUBCUT (08:05)
[2018-09-09] MEDS: POTASSIUM CHLORIDE 20 MEQ/15 ML UDC 40 MEQ PO (08:10)
[2018-09-09] MEDS: SODIUM CHLORIDE 0.9% 250 ML 21 ML IV (08:11)
--- NOTE | 2018-09-09 09:25 | OT.IP.TRT ---
Addendum entered and electronically signed by Marialuisa Flowers OT 09/09/18 19:11: This note is an OT evaluation not a treatment note. Original Note: Current Diagnoses Sepsis, unspecified organism (09/06/18) Occupational Therapy Treatment Note M2 OT-IP Current Condition Start: 09/08/18 14:47 Freq: Status: Active Protocol: Document 09/09/18 09:25 PJM (Rec: 09/09/18 11:43 PJM [id number]) Occupational Therapy Current Condition Current Condition Evaluation Date 09/09/18 Treatment Diagnosis hypoxia with aspiration PNA s/ p emesis, hx of old L stroke Diagnosis Onset Date 09/06/18 Post Operative Precautions Other Precautions dysphagia, fall risk, ceiling lift transfers M3 OT- IP Subjective and Pain Start: 09/08/18 14:47 Freq: Status: Active Protocol: Document 09/09/18 09:25 PJM (Rec: 09/09/18 11:43 PJM [id number]) OT- Subjective Occupational Therapy Visit Type Type Initial Evaluation Visit Start Time 09:09 Visit Stop Time 09:25 Notes pt up in recliner this session Occupational Therapy Visit Comments Patient/Caregiver Goals pt unable to verbalize goal due to expressive aphasia OT Pain Assessment Pain When Pain Assessed After Treatment Pain Present Pain Present Denied Pain M4 OT- IP ADL's Start: 09/08/18 14:47 Freq: Status: Active Protocol: Document 09/09/18 09:25 PJM (Rec: 09/09/18 11:43 PJM [id number]) OT [id number] General Evaluation Diet Level for Self-Feeding Mech soft, thins Self-Feeding Ability Independent Areas Needing Assistance Opening Containers Comments OT Self-Feeding Comments Pt needs total assist with meal tray set up, then able to feed self with L hand. Pt able to drink from cup without lid with no spilling observed . No signs of aspiration noted this session. OT ADL-Grooming General Evaluation Grooming Ability Total Assistance Comments OT Grooming Comments pt had total assist at [facility] prior to admit OT ADL-Oral Care General Eval Oral Care Ability Total Assistance Comments Oral Care Comments pt had total assist at [facility] prior to admit OT ADL-Dressing General Eval Upper Body Dressing Ability Total Assistance Lower Body Dressing Ability Total Assistance Comments OT Dressing Comments pt had total assist at [facility] prior to admit OT ADL-Toileting General Evaluation Toileting Ability Total Assistance Comments OT Toileting Comments pt had total assist at [facility] prior to admit; pt incontinent of bowel and bladder OT ADL-Bathing Bathing Type Bathing Type Shower General Evaluation Bathing Ability Total Assistance Comments OT Bathing Comments pt had total assist at [facility] prior to admit, roll in shower chair to shower room M5 OT- IP IADL's Start: 09/08/18 14:47 Freq: Status: Active Protocol: Document 09/09/18 09:25 PJM (Rec: 09/09/18 11:43 PJ [id number]) OT-Instrumental Activities of Daily Living Deficits IADL Deficits Identified Deficits Home Safety Awareness Awareness of Need for Assistance at Home Decreased Awareness Medication Management Medication Management Caregiver Administers Money Management Money Management Caregiver Provides Assistance Meal Preparation Meal Preparation Caregiver Provides Assist Meal Preparation Comments 3 meals/day provided; pt eats in bed after set up Salicylic Acid Blender Salicylic Acid Blender Caregiver Provides Assist Driving Driving Caregiver Provides Assist M6 OT- IP Functional Cognition Start: 09/08/18 14:47 Freq: Status: Active Protocol: Document 09/09/18 09:25 PJM (Rec: 09/09/18 11:43 PJ [id number]) Cognitive Factors Limiting Selfcare Function Cognitive Ability Level of Alertness Alert Patient Orientation Name Place Attention Span Ability Capable of Focused Attention Ability to Follow Commands Able to Follow One Step Commands Cognitive Comments Cognitive Assessment Comments Difficult to assess orientation due to expressive aphasia and yes/no responses appear inconsistent at times. Pt able to follow one step verbal commands so he has basic receptive language skills. Pt has low tolerance for attempts at communication and frequently holds L hand up gesturing stop when asked questions about his needs or comfort. OT- Vision and Hearing OT- Hearing Assessment OT- Hearing Assessment WFL OT- Vision Assessment Visual Acuity Glasses All The Time Occular Pursuits Impaired Horizontal Visual Awad Impaired Visual Spacial Neglect Right Vision Assessment Comments Pt appears to have R field cut vs R homonymous hemianopsia. Unable to formally assess due to pt's language deficits and low frustration tolerance. M7 OT- IP Mobility and Balance Start: 09/08/18 14:47 Freq: Status: Active Protocol: Document 09/09/18 09:25 PJM (Rec: 09/09/18 11:43 PJ [id number]) OT- Bed Mobility Assessment Rolling Level of Assistance Total Assistance Supine to Sit Supine to Sit Assist Total Assistance Sit to Supine Sit to Supine Assist Total Assistance Scooting Scooting to Edge of Bed Total Assistance Scooting Up and Down in Bed Total Assistance OT-Transfer Assessment Sit to and From Stand Sit to and from Stand Total Assistance Transfers Transfer Ability Total Assistance Comments Mobility Comments ceiling lift or luis fernando transfers OT- Gait Assessment Comments Gait Ability Comments pt is non ambulatory OT- Balance Assessment Sitting Balance and Reactions Static Sitting Balance Ability Poor Dynamic Sitting Balance Ability Poor Standing Balance and Reactions Static Standing Balance Ability Poor Dynamic Standing Balance Ability Poor Comments Other Balance Tests/Deviations/Treatment poor supported sitting balance : in bed and chair M8 OT- IP Objective Assessments Start: 09/08/18 14:47 Freq: Status: Active Protocol: Document 09/09/18 09:25 PJM (Rec: 09/09/18 11:43 PJM [id number]) OT Gross Range of Motion Upper Extremity Range of Motion Assessment Right Impaired ROM Impairments RUE PROM: Significant limitations and flexion contractures noted due to spasticity: Shldr flex to 45 degrees, abd to 30, elbow ~90- 130, supination to neutral only, wrist ext lacks 20 degrees from neutral, MP's fixed at 90 degrees flex but able to extend IP's to neutral . Pt does not wear a hand splint but has sufficient PROM to allow for hygiene in palm of hand. LUE AROM WFL for age. OT Strength Upper Extremity Strength Assessment Right Impaired Shoulder R 0/5 L WFL Elbow R 0/5 L WFL Forearm R 0/5 L WFL Wrist R 0/5 L WFL Hand R 0/5 L WFL Hand Imaging Tech Strength Hand Dominance Left Comments Strength Comments Pt now L dominant since stroke . No voluntary movement elicited in RUE OT- Coordination Assessment Upper Extremity Finger to Nose Test Right UE Impaired Finger Tapping Test Right UE Impaired Comments Coordination Comments RUE/hand non functional OT-Muscle Tone Assessment Muscle Tone Location Right Upper Extremity Type of Tone Hypertonicity Severity of Tone Severe Kayla Grade Scale Grade 4 Comments Muscle Tone Comments Severe flexor hypertonicity in RUE resulting in multiple joint contractures. OT Sensation Assessment Location Right Upper Extremity Light Touch Absent Proprioception (Position) Absent Comments Summary Comments Severely impaired RUE/hand sensation Edema Edema Absent M9 OT- IP Assessment and Plan Start: 09/08/18 14:47 Freq: Status: Active Protocol: Document 09/09/18 09:25 PJM (Rec: 09/09/18 11:43 PJ [id number]) OT Summary Assessment and Plan Potential Analytic Complexity at Evaluation Low Summary Progress Towards Goals Safe For Discharge Assessment Summary Low complexity OT assessment completed on this 63 yr old male admitted with aspiration PNA and hypoxia after emesis event at his senior living care facility. Pt has hx of L stroke with severe RUE spastic hemiplegia, dysphagia and expressive greater than receptive aphasia. Pt is total assist with all self care except he is indep with self feeding in bed at his facility. Pt able to feed himself with L hand after set up here and appears to be at his baseline level of function as described above. No OT goals identified for this admission. No P.T. services indicated as pt is essentially bed ridden, uses luis fernando lift for transfers ,and does not ambulate. Frequency of Treatment Frequency Of Treatment Discharge Discharge Recommendations Other Discharge Recommendations return to [facility] when medically stable
--- NOTE | 2018-09-09 10:04 | PM.DS.1 ---
History of Present Illness Date Patient Seen: 09/09/18 Chief complaint: SOB Narrative: he patient is a 63-year-old male w/ PMHx of HTN, CAD, HLD, DM 2T, CVA (w/ residual deficits of aphasia and right hemiparesis), AFIB, GERD, BPH, RLS, and MDD. Patient presented via EMS on 09/06/2018 at approximately 1:21 AM with hypoxia. Patient is a resident of [facility], prior to the arrival he found covered in vomit. The staff sat him up and thereafter he had another two episodes of vomiting. Patient is not noted to have been short of breath; however, he was hypoxic w/ SpO2 of 89%. At time of the event patient's VS were taken and reported as, Temp 98.7F BP 134/74 HR 110 RR 19 SpO2 89%. No changes in baseline mental state noted. Events were reported to the commercial sales director and recommendation made to have patient evaluated in the ED. Upon arrival to the ED was found to be febrile, tachypneic, tachycardic, and hypoxic w/ SpO2 of 87% on room air. He does have dysphagia. No underlying lung disease or hypoxia. Now known to have had recent hospitalizations or other illness. Discharge Providers Date of admission: 09/06/18 03:10 Discharge Date: 09/09/18 Primary care physician: Estefany Yoon MD Consults: 09/06/18 01:22 Consult to Respiratory Therapy Evaluate & Treat Comment: Physician Instructions: Evaluate and treat 09/06/18 03:31 Consult to Discharge Planning Routine Comment: 09/06/18 04:20 Consult to Dietitian, Adult Routine Comment: Reason For Exam: per protocol, immobility and moisture 09/06/18 06:19 Consult to Speech Therapy Evaluate & Treat Comment: swallow evaluation and recommendations Physician Instructions: Evaluate and treat 09/08/18 12:08 Consult to Occupational Therapy Evaluate & Treat Comment: Physician Instructions: Evaluate and treat Consult to Physical Therapy Evaluate & Treat Comment: Physician Instructions: Evaluate and Treat Discharge provider: Jaida Jasso MD Summary Discharge Diagnosis: 1. sepsis, present on admission 2. Acute hypoxic respiratory failure, present on admission, resolved 3. Aspiration pneumonia present on admission improved 4. Dysphagia, chronic, present on admission 5. History of CVA with residual right hemiparesis and dysphagia, present on admission 6. Type 2 diabetes, chronic, present on admission 7. Paroxysmal atrial fibrillation chronic 8. Hypokalemia 8. Hypertension, chronic 9. Coronary artery disease, chronic 10. Benign prostatic hypertrophy, chronic 11. Chronic constipation 12. Hyperlipidemia Hospital Course: The patient is a 63-year-old male who was admitted to the hospital for sepsis secondary to aspiration pneumonia. The patient had acute hypoxic respiratory failure on admission. He was found covered in vomit hypoxic with O2 sat of 87%. The patient's white count was markedly elevated at 20,000 thousand. His procalcitonin was elevated at 4.23. With treatment including IV antibiotics, IV fluids, diet upgrade the patient improved significantly. The patient's oxygenation improved and he no longer required additional oxygen. He had no further episodes of vomiting or aspiration. He was maintained on a dysphagia diet. The patient continue to have paroxysmal atrial fibrillation. He had improvement of his pulmonary status and was deemed appropriate to return to [address] for ongoing rehabilitation. Status at Discharge Cognitive/behavioral status at discharge: at baseline, oriented Functional status at discharge: wheelchair bound Overall status at discharge: patient is back to baseline Time Spent with Patient Less than 30 minutes Exam Vital Signs (past 8 hours): - 09/09/18 05:00 09/09/18 05:18 09/09/18 07:20 Temperature 98.6 F 98.8 F Pulse Rate 71 71 Respiratory Rate 19 16 Blood Pressure 160/79 H 157/85 H Pulse Oximetry 93 93 94 Fraction of Inspired Oxygen 21 Oxygen Delivery Method Room Air Oxygen Flow Rate 0 Narrative Exam Narrative: Ill appearing 63-year-old Lungs: Decreased breath sounds with occasional end-expiratory wheezing Cardiac exam: Regular rate and rhythm normal S1-S2 with a 2/6 systolic ejection murmur Abdomen: Soft nontender nondistended without hepatosplenomegaly Extremities: No edema Neuro exam: Dense hemiplegia on the right, some evidence of dysarthria, with dysphagia. Objective Labs Result Diagrams: 09/09/18 05:46 09/09/18 05:46 Labs: Laboratory Results - last 24 hr 09/09/18 09/09/18 05:46 05:46 WBC 11.4 H RBC 4.37 L Hgb 13.1 L Hct 38.1 L MCV 87.2 MCH 30.1 MCHC 34.5 RDW 13.6 Plt Count 251 Neut % (Auto) 72.3 Lymph % (Auto) 13.3 L [place] % (Auto) 8.5 Eos % (Auto) 4.8 H Baso % (Auto) 1.1 Neut # (Auto) 8200 H Lymph # (Auto) 1500 [place] # (Auto) 1000 H Eos # (Auto) 600 H Baso # (Auto) 100 Sodium 137 Potassium 3.1 L Chloride 101 Carbon Dioxide 27 BUN 10 Creatinine 0.60 L Estimated GFR > 60.0 BUN/Creatinine Ratio 16.7 Glucose 125 H Calcium 8.1 L Discharge Plan Discharge Plan Discharge Problem: Pneumonia, Acute respiratory failure with hypoxia Patient Disposition: Assisted Living Transfer to: [facility] Transportation: Cabulance I certify the postop hospital [facility] care is medically necessary on a continuing basis for any conditions for which he/ she received care during this hospitalization.: Yes The receiving facility has agreed to accept transfer and provide medical treatment.: Yes Discharge Med Rec/Prescriptions Prescriptions: New amoxicillin-pot clavulanate [Augmentin] 875-125 mg tablet 1 tab PO BID Qty: 10 RF: 0 Continued metoprolol tartrate 25 mg Tablet 25 mg PO BID RF: 0 clopidogrel [Plavix] 75 mg Tablet 75 mg PO DAILY RF: 0 Lantus Solostar U-100 Insulin 100 unit/mL (3 mL) Insulin Pen 26 unit SUBCUT DAILY RF: 0 melatonin 3 mg Tablet 6 mg PO BEDTIME RF: 0 tamsulosin [Flomax] 0.4 mg Capsule 0.4 mg PO QPM RF: 0 finasteride 5 mg Tablet 5 mg PO QPM RF: 0 docusate sodium 100 mg Tablet 200 mg PO DAILY RF: 0 hydrocodone-acetaminophen 5-325 mg Tablet 0.5 tab PO Q6H PRN (Reason: Pain (Scale Score 4-6)) RF: 0 [GRABBER] 1 ea miscellaneous DIRECTED RF: 0 cetirizine 10 mg Tablet 10 mg PO QPM RF: 0 phenytoin sodium extended [Dilantin Extended] 100 mg Capsule 100 mg PO TID RF: 0 isosorbide mononitrate 60 mg Tablet Extended Release 24 Hr 60 mg PO DAILY RF: 0 atorvastatin 40 mg Tablet 40 mg PO QPM RF: 0 hydrocodone-acetaminophen 5-325 mg Tablet 1 tab PO Q6H PRN (Reason: Pain (Scale Score 7-10)) RF: 0 diltiazem HCl 120 mg Capsule,Extended Release 12 Hr 120 mg PO DAILY RF: 0 aspirin 81 mg Tablet,Chewable 81 mg PO DAILY RF: 0 mirtazapine 15 mg Tablet 7.5 mg PO QPM RF: 0 Humalog U-100 Insulin 100 unit/mL Solution 1 dose subcut TID RF: 0 paroxetine HCl 40 mg Tablet 40 mg PO DAILY RF: 0 cholecalciferol (vitamin D3) [Vitamin D3] 1,000 unit Tablet 2,000 unit PO DAILY RF: 0 Cane: Single Point Adjustable Cane 1 dev miscellaneous DIRECTED RF: 0 Glucose: Home Monitor miscellaneous DIRECTED RF: 0 Glucose: Test Strips miscellaneous DIRECTED RF: 0 Lancet: Device miscellaneous QID RF: 0 sennosides [senna] 8.6 mg Tablet 17.2 mg PO BID RF: 0 acetaminophen 325 mg Tablet 325 mg PO Q4H PRN (Reason: pain level 1-3 or fever > 100) RF: 0 ketoconazole 2 % Shampoo 1 applic TOPICAL TU RF: 0 bisacodyl 10 mg Suppository 10 mg MA PRN PRN (Reason: no BM x 5 days) RF: 0 mupirocin 2 % Ointment 1 applic TOPICAL TID PRN (Reason: foliculitis) RF: 0 nystatin 100,000 unit/gram Powder 1 applic TOPICAL BID PRN (Reason: skin care) RF: 0 docusate sodium 100 mg Tablet 200 mg PO DAILY RF: 0 bisacodyl 5 mg Tablet 5 mg PO PRN PRN (Reason: no BM x 3 days) RF: 0 bisacodyl 5 mg Tablet 10 mg PO PRN PRN (Reason: no BM x 4 days) RF: 0 CeraVe Cream 1 applic topical BID RF: 0 Barrier Cream 1 applic topical BID RF: 0 Healthshake 240 ml PO BID RF: 0 losartan 100 MG tablet 100 mg PO DAILY RF: 0 Follow up/Referrals: Estefany Yoon MD [Primary Care Provider] - Discharge Orders: Discharge (Order); Ordered 09/09/18 Ordered By: Jaida Jasso Provider Discharge Instructions Diet: Low-sodium and Low-cholesterol Liquid consistency: [place] Consistency Food texture: Blenderized or pureed Activity: As tolerated Skin/Wound/Dressing Care Report to your healthcare provider any signs of infection, such as:: chills, fever and night sweats Special Rehabilitation Services Reason for rehabilitation: Recovery r/t decondition Rehab type: Physical therapy and Occupational therapy Discharge Data Primary Care Provider: Estefany Yoon Attending Provider: Naldo Maurer Admit Date/Time: 09/06/18 03:10
[2018-09-09] MEDS: SODIUM CHLORIDE 0.9% FLUSH 10 ML IV (10:37)
[2018-09-09] MEDS: INSULIN ASPART 100 UNIT/ML INSULN PEN SUBCUT (11:39)
[2018-09-09] MEDS: DOCUSATE 100 MG CAPSULE PO (11:39)
--- NOTE | 2018-09-09 14:05 | CM.DPC ---
DCP Cont: Faxed discharge referral to [facility] at fax # [phone]. Fax confirmation scanned in. Sofia Latham, [facility] Application Developer
[2018-09-09 15:17] LABS: Procalcitonin 1.47 ng/mL (<0.5)
--- NOTE | 2018-09-09 15:33 | PC.NURSE ---
REPORT CALLED TO GABY AT [facility] PRIOR TO DISCHARGE. IV REMOVED INTACT. PATIENT PICKED UP BY AMBULANCE FOR TRANSPORT. PAPERWORK WITH PRESCRIPTION PACKET SENT.
--- NOTE | 2018-09-09 16:13 | CM.DPNOTE ---
DC Note: According to Dr Jasso, pt can DC today, back to [facility]. Pt aware and agreeable. Pt has been DC from PT; he is bed bound at [facility] and back to baseline. He will be DC on oral abx. Notified Lupe coker/ [facility] P# [phone], she explained she had seen pt already and he is back to baseline. Lupe updated on new oral abx. Signed med list faxed to [facility] per request by [facility]. Initially Medicaid transportation form was completed on pt's behalf for cabulance, because [facility] was unable to p/u, then CHELSEY He felt pt could not support himself in w/c w/o an attendant right beside him and pt did not have his tilting w/c in . Thus, BLS form was completed and then signed by Dr Jasso. BLS arranged by [facility] Sofia for p/u at 1430, CHELSEY Bright made aware,Lupe coker/ [facility] also made aware. Contacted DPOA/brother Miguel to update on DCP. Miguel asks this BUSHEL WORKER how is he (pt) doing? This BUSHEL WORKER encouraged Miguel to contact nursing staff for any medical updates. P: DC back to [facility] today via BLS for safe transport. Close medical supervision at [facility] (in house physician) and oral abx, Lupe aware. DORY Cortes
== END 2018-09-09 15:34 | DRG 871 ==
LOC: ED 02:57 → AC 07:50
PROVIDERS: Internal Medicine; Admitting Provider Nurse Practitioner Gerontology; Emergency Provider Emergency Medicine; Family Provider Internal Medicine; PCP Internal Medicine; Visit Provider Nurse Practitioner Gerontology
DX: A41.9 Sepsis, unspecified organism (principal); J96.01 Acute respiratory failure with hypoxia; J69.0 Pneumonitis due to inhalation of food and vomit; F03.91 Unspecified dementia, unspecified severity, with behavioral disturbance; I69.351 Hemiplegia and hemiparesis following cerebral infarction affecting right dominant side; R65.20 Severe sepsis without septic shock; I69.320 Aphasia following cerebral infarction; E83.42 Hypomagnesemia
CPT/HCPCS: 36415; 36591; 36592; 71045; 80048; 80053; 80185; 81001; 82550; 82962; 83605; 83690; 83735; 83880; 84145; 84484; 85025; 85610; 85730; 87040; 87077; 87086; 87147; 87400; 87633; 92526; 93005; 93010; 94640; 94760; 97165; 99283; J0692; J1644; J2543; Q2009

== ENCOUNTER → 2018-09-16 16:10 | Outpatient (REF) | payer MEDICAID, SELFPAY ==
[2018-09-06 04:07] VITALS: BMI 25.2
[2018-09-16 16:15] LABS: Add Manual Diff / Slide Review NO; Basophils Absolute Auto 100 /uL (0-100); Basophils Percent Auto 0.8 % (0-2); Eosinophils Absolute Auto 300 /uL (0-450); Eosinophils Percent Auto 2.9 % (2-4); Hematocrit 40.9 % (41-53); Hemoglobin 13.5 g/dL (13.5-17.5); Lymphocytes Absolute Auto 1500 /uL (1100-4500); Lymphocytes Percent Auto 13.3 % (25-40); Mean Corpuscular HGB Conc 32.9 % (30-36); Mean Corpuscular Hemoglobin 29.4 PG (26-34); Mean Corpuscular Volume 89.3 fL (80-100); Monocytes Absolute Auto 500 /uL (0-900); Monocytes Percent Auto 4.4 % (3-14); Neutrophils Absolute Auto 8700 /uL (1500-7000); Neutrophils Percent Auto 78.6 % (50-75); Platelet Count 421 X10^3/uL (150-400); Red Blood Cell Count 4.58 X10^6/uL (4.5-5.9); Red Cell Distribution Width 13.8 % (11.6-14.8)
[2018-09-16 16:31] LABS: BUN Creatinine Ratio 33.3 (6-22); Blood Urea Nitrogen 20 mg/dL (9-20); Calcium 8.5 mg/dL (8.4-10.2); Carbon Dioxide 26 mmol/L (22-32); Chloride 104 mmol/L (98-107); Estimated Glomerular Filt Rate > 60.0 mL/min (>60); Glucose 200 mg/dL (80-110); HEMOLYSIS < 15 (0-50); Potassium 3.5 mmol/L (3.4-5.1); Sodium 140 mmol/L (137-145)
== END ==
LOC: LAB 16:10
PROVIDERS: Family Provider Internal Medicine; PCP Internal Medicine; Visit Provider Registered Nurse
DX: J18.9 Pneumonia, unspecified organism (principal); E87.6 Hypokalemia
CPT/HCPCS: 80048; 85025

== ENCOUNTER 2018-10-17 00:16 | Inpatient (IN) | payer MEDICAID, SELFPAY ==
[2018-09-06 04:07] VITALS: BMI 25.2
[2018-10-17] VITALS (19 sets, daily range): BP systolic 111–171; BP diastolic 62–86; PULSE 78–121; RESP 15–41; TEMP 36.9–38.5; O2SAT 87–99; BMI 23.8
--- NOTE | 2018-10-17 00:22 | ED.GENADULT ---
HPI - General Adult General Chief complaint: Shortness of Breath/Dyspnea Stated complaint: Vomiting Time Seen by Provider: 10/17/18 00:17 Source: patient and EMS Mode of arrival: EMS Limitations: other (Stroke) History of Present Illness HPI narrative: Patient is a 63-year-old male who arrived to emergency department by EMS after was reported that he had at least 1 episode of vomiting at his nursing facility. Approximately 1 month ago patient was admitted here to the emergency department after sustaining what appeared to be an aspiration pneumonia. He has had history of CVA with right-sided deficits. Carin does do mention issues with dysphagia and dysarthria. No interventions were provided prior to arrival here in the emergency department. Upon arrival here patient had no complaints. Patient was hypoxic to the high 80s upon arrival. There is no reports the patient is on oxygen at baseline. Related Data Home Medications Medication Instructions Recorded Confirmed Barrier Cream 1 applic TOPICAL BID 09/06/18 09/06/18 Cane: Single Point Adjustable Cane 1 dev MISCELLANEOUS DIRECTED 09/06/18 09/06/18 CeraVe 1 applic TOPICAL BID 09/06/18 09/06/18 Glucose: Home Monitor 0 dev MISCELLANEOUS DIRECTED 09/06/18 09/06/18 Glucose: Test Strips 0 str MISCELLANEOUS DIRECTED 09/06/18 09/06/18 Healthshake 240 ml PO BID 09/06/18 09/06/18 Humalog U-100 Insulin 1 dose SUBCUT TID 09/06/18 09/06/18 Lancet: Device 0 dev MISCELLANEOUS QID 09/06/18 09/06/18 Lantus Solostar U-100 Insulin 26 unit SUBCUT DAILY 09/06/18 09/06/18 [ROBERTABBER] 1 ea MISCELLANEOUS DIRECTED 09/06/18 09/06/18 acetaminophen 325 mg PO Q4H PRN 09/06/18 09/06/18 aspirin 81 mg PO DAILY 09/06/18 09/06/18 atorvastatin 40 mg PO QPM 09/06/18 09/06/18 bisacodyl 5 mg PO PRN PRN 09/06/18 09/06/18 bisacodyl 10 mg PO PRN PRN 09/06/18 09/06/18 bisacodyl 10 mg WV PRN PRN 09/06/18 09/06/18 cetirizine 10 mg PO QPM 09/06/18 09/06/18 cholecalciferol (vitamin D3) 2,000 unit PO DAILY 09/06/18 09/06/18 [Vitamin D3] clopidogrel [Plavix] 75 mg PO DAILY 09/06/18 09/06/18 diltiazem HCl 120 mg PO DAILY 09/06/18 09/06/18 docusate sodium 200 mg PO DAILY 09/06/18 09/06/18 finasteride 5 mg PO QPM 09/06/18 09/06/18 hydrocodone-acetaminophen 0.5 tab PO Q6H PRN 09/06/18 09/06/18 hydrocodone-acetaminophen 1 tab PO Q6H PRN 09/06/18 09/06/18 isosorbide mononitrate 60 mg PO DAILY 09/06/18 09/06/18 ketoconazole 1 applic TOPICAL TU 09/06/18 09/06/18 losartan 100 mg PO DAILY 09/06/18 09/06/18 melatonin 6 mg PO BEDTIME 09/06/18 09/06/18 metoprolol tartrate 25 mg PO BID 09/06/18 09/06/18 mirtazapine 7.5 mg PO QPM 09/06/18 09/06/18 mupirocin 1 applic TOPICAL TID PRN 09/06/18 09/06/18 nystatin 1 applic TOPICAL BID PRN 09/06/18 09/06/18 paroxetine HCl 40 mg PO DAILY 09/06/18 09/06/18 phenytoin sodium extended 100 mg PO TID 09/06/18 09/06/18 [Dilantin Extended] sennosides [senna] 17.2 mg PO BID 09/06/18 09/06/18 tamsulosin [Flomax] 0.4 mg PO QPM 09/06/18 09/06/18 Allergies Allergy/AdvReac Type Severity Reaction Status Date / Time No Known Drug Allergies Allergy Verified 10/17/18 00:26 Review of Systems Review of Systems Somewhat limited review of systems secondary to the patient's history of stroke Constitutional Denies fever(s) Cardiovascular Denies chest pain and Denies dyspnea Respiratory Denies dyspnea Gastrointestinal Gastrointestinal: Reports vomiting (Per reports this information not provided by patient) Neurologic Denies behavioral changes Psychiatric Denies behavioral changes PFS Medical History Afib (Acute) BPH (benign prostatic hyperplasia) (Acute) CVA (cerebral vascular accident) (Acute) Coronary artery disease (Acute) Diabetes (Acute) GERD (gastroesophageal reflux disease) (Acute) Hyperlipidemia (Acute) Hypertension (Acute) MDD (major depressive disorder) (Acute) RLS (restless legs syndrome) (Acute) Seizure (Acute) Social History household members: other lives independently: No housing: residential Smoking Status: Unknown if ever smoked alcohol intake: former Social History household members: other lives independently: No housing: residential Smoking Status: Unknown if ever smoked alcohol intake: former Exam Initial Vital Signs Initial Vital Signs: Vital Signs Temperature 101.3 F H 10/17/18 00:20 Pulse Rate 106 H 10/17/18 00:20 Respiratory Rate 32 H 10/17/18 00:20 Blood Pressure 168/86 H 10/17/18 00:20 Pulse Oximetry 87 L 10/17/18 00:20 Const General: cooperative, No acute distress, disheveled and ill appearing Orientation: alert and awake HENDE Head: normal to inspection and normocephalic Resp Effort & Inspection: normal respiratory effort, not labored and no retractions Other: Patient id clear breath sounds however did have poor inspiratory effort. Cardio Rate: tachycardic Rhythm: regular rhythm GI Inspection: non-distended Palpation: soft Skin Lesions: no lesions Rashes: no rashes Neuro Other: Patient unable to move right side however he states this is not new. Did follow commands and move left upper and lower extremities. Extrem General: capillary refill normal Other: Right upper extremity contracted in words this is not new. Psych Appearance: grossly normal and well kempt Scores GCS Espinoza coma scale eye opening: Spontaneous [place] coma scale verbal response: Orientated Espinoza coma scale motor response: Obey commands Espinoza coma scale total score: 15 Course Orders Ordered: ED Orders 10/17/18 00:27 XR chest 1V Stat EKG-12 Lead Stat 10/17/18 01:07 B Type Natriuretic Peptide Stat Basic Metabolic Panel Stat Complete Blood Count AUTO DIFF Stat Lactate (Lactic Acid) Stat Procalcitonin Stat 10/17/18 01:18 Blood Culture Stat Sodium Chloride (Normal Saline 0.9%) 1,000 mls @ 125 mls/hr IV CONT CAROLE Discontinued Medications Acetaminophen (Tylenol) 650 mg WV NOW ONE Stop: 10/17/18 01:29 Last Admin: 10/17/18 01:41 Dose: 650 mg Sodium Chloride (Normal Saline 0.9%) 1,000 mls @ 1,000 mls/hr IV BOLUS ONE Stop: 10/17/18 01:24 Last Admin: 10/17/18 01:34 Dose: 200 mls/hr Vancomycin HCl/Dextrose (Vancomycin) 1,000 mg in 200 mls @ 200 mls/hr IV NOW ONE Stop: 10/17/18 01:26 Piperacillin/Tazobactam/Dextrose (Zosyn) 3.375 gm in 50 mls @ 100 mls/hr IV NOW ONE Stop: 10/17/18 00:56 Last Admin: 10/17/18 01:35 Dose: 100 mls/hr Levofloxacin (Levaquin) 750 mg in 150 mls @ 100 mls/hr IV NOW ONE Stop: 10/17/18 01:58 Vital Signs - 8 hr 10/17/18 00:20 10/17/18 00:30 10/17/18 01:00 Temperature 101.3 F H Pulse Rate 106 H 120 H 120 H Respiratory Rate 32 H 27 H 41 H Blood Pressure 168/86 H Blood Pressure [Left Arm] 171/76 H 148/83 H Pulse Oximetry 87 L 91 10/17/18 01:30 Temperature Pulse Rate 121 H Respiratory Rate 38 H Blood Pressure Blood Pressure [Left Arm] 149/71 H Pulse Oximetry 93 Medical Decision Making Medical Records Medical records reviewed: Yes I reviewed the patient's medical records. Lab Data Lab results reviewed: No I reviewed the patient's lab results. Result diagrams: 10/17/18 01:07 10/17/18 01:07 Lab Results 10/17/18 10/17/18 10/17/18 Range/Units 01:07 01:07 01:07 WBC 15.0 H (4.5-11.0) X10^3/uL RBC 5.52 (4.5-5.9) X10^6/uL Hgb 16.5 (13.5-17.5) g/dL Hct 49.3 (41-53) % MCV 89.4 (80-100) fL MCH 30.0 (26-34) PG MCHC 33.5 (30-36) % RDW 13.9 (11.6-14.8) % Plt Count 269 (150-400) X10^3/uL Neut % (Auto) 90.9 H (50-75) % Lymph % (Auto) 5.8 L (25-40) % Florence % (Auto) 2.6 L (3-14) % Eos % (Auto) 0.4 L (2-4) % Baso % (Auto) 0.3 (0-2) % Neut # (Auto) 72087 H (5810-3320) /uL Lymph # (Auto) 900 L (4380-5091) /uL Florence # (Auto) 400 (0-900) /uL Eos # (Auto) 100 (0-450) /uL Baso # (Auto) 0 (0-100) /uL Sodium 140 (137-145) mmol/L Potassium 4.4 (3.4-5.1) mmol/L Chloride 97 L (98-107) mmol/L Carbon Dioxide 28 (22-32) mmol/L BUN 19 (9-20) mg/dL Creatinine 0.60 L (0.66-1.25) mg/dL Estimated GFR > 60.0 (>60) mL/min BUN/Creatinine Ratio 31.7 H (6-22) Glucose 234 H (80-110) mg/dL Lactate (0.7-2.1) mmol/L Calcium 9.2 (8.4-10.2) mg/dL B-Natriuretic Peptide < 100 (<100) Procalcitonin < 0.05 (<0.5) ng/mL 10/17/18 Range/Units 01:07 WBC (4.5-11.0) X10^3/uL RBC (4.5-5.9) X10^6/uL Hgb (13.5-17.5) g/dL Hct (41-53) % MCV (80-100) fL MCH (26-34) PG MCHC (30-36) % RDW (11.6-14.8) % Plt Count (150-400) X10^3/uL Neut % (Auto) (50-75) % Lymph % (Auto) (25-40) % Florence % (Auto) (3-14) % Eos % (Auto) (2-4) % Baso % (Auto) (0-2) % Neut # (Auto) (2295-6267) /uL Lymph # (Auto) (3604-2580) /uL Florence # (Auto) (0-900) /uL Eos # (Auto) (0-450) /uL Baso # (Auto) (0-100) /uL Sodium (137-145) mmol/L Potassium (3.4-5.1) mmol/L Chloride (98-107) mmol/L Carbon Dioxide (22-32) mmol/L BUN (9-20) mg/dL Creatinine (0.66-1.25) mg/dL Estimated GFR (>60) mL/min BUN/Creatinine Ratio (6-22) Glucose (80-110) mg/dL Lactate 3.2 H (0.7-2.1) mmol/L Calcium (8.4-10.2) mg/dL B-Natriuretic Peptide (<100) Procalcitonin (<0.5) ng/mL Imaging Data Chest x-ray: Attestation: I personally reviewed and interpreted this imaging study as follows: My impression: No focal consolidations however does have left-sided haziness. Normal size heart ECG Data Attestation: I personally reviewed and interpreted this ECG as follows: Prior ECG tracings: not available for review Interpretation: Sinus tachycardia Ventricular rate of 131 Normal axis Right bundle branch block QRS [address] T wave changes MDM Narrative Medical decision making narrative: Patient arrived hypoxic to the high 80s this improved with 2 L of nasal cannula. He was also tachycardic. Does have an elevated white blood cell count also elevated lactate. Fluids were administered. Given his respiratory status and the fact that he was not hypotensive I felt the 30 cc/kilogram of fluids would be more detrimental in this case so was not administered. Patient's chest x-ray is concerning for potential pneumonia on the left side. Unsure this was an aspiration pneumonia. Given his prior antibiotics in the last 30 days and his hospitalization the last 30 days in his long care nursing facility residence patient was treated for healthcare associated pneumonia. Blood cultures were obtained. Discussed case with Dr. Jackson with Internal Medicine who will admit the patient for further evaluation and treatment. Discharge Plan Departure Patient Disposition: Admitted As Inpatient Clinical Impression: Hyperglycemia Pneumonia Qualifiers: Pneumonia type: due to unspecified organism Laterality: left Lung location: unspecified part of lung Qualified Code(s): J18.9 - Pneumonia, unspecified organism Admit Date/Time: 10/17/18 01:52 Admit Provider: Inderjit Jackson
--- NOTE | 2018-10-17 00:27 | DI.RAD.S_ITS ---
PROCEDURE: XR CHEST 1V INDICATIONS: Fever and cough concern for pneumonia TECHNIQUE: One view of the chest was acquired. COMPARISON: [facility], CR, XR CHEST 1V, 09/08/2018, 9:23. FINDINGS: Surgical changes and devices: None. Lungs and pleura: Increased attenuation is identified throughout the left lung, which is more prominent on the current study, compared to the previous exam. Additional possible areas of increased density within the right lung may be present. However, the aeration of the right lung has improved, particularly at the right lung base. No effusion or pneumothorax is evident. Mediastinum: Mediastinal contours appear normal. Heart size is normal. Bones and chest wall: No suspicious bony lesions. Overlying soft tissues appear unremarkable. IMPRESSION: Patchy airspace disease is more prominent on the left, suspicious for pneumonia versus pulmonary edema. Please correlate clinically. Note: The preliminary ED findings and the final radiology report are concordant. Dictated by: Twan Matthew M.D. on 10/17/2018 at 7:30 Approved by: Twan Matthew M.D. on 10/17/2018 at 7:32
[2018-10-17 01:18] LABS: Add Manual Diff / Slide Review NO; Basophils Absolute Auto 0 /uL (0-100); Basophils Percent Auto 0.3 % (0-2); Eosinophils Absolute Auto 100 /uL (0-450); Eosinophils Percent Auto 0.4 % (2-4); Hematocrit 49.3 % (41-53); Hemoglobin 16.5 g/dL (13.5-17.5); Lymphocytes Absolute Auto 900 /uL (1100-4500); Lymphocytes Percent Auto 5.8 % (25-40); Mean Corpuscular HGB Conc 33.5 % (30-36); Mean Corpuscular Volume 89.4 fL (80-100); Monocytes Absolute Auto 400 /uL (0-900); Monocytes Percent Auto 2.6 % (3-14); Neutrophils Absolute Auto 13600 /uL (1500-7000); Neutrophils Percent Auto 90.9 % (50-75); Platelet Count 269 X10^3/uL (150-400); Red Blood Cell Count 5.52 X10^6/uL (4.5-5.9); Red Cell Distribution Width 13.9 % (11.6-14.8)
[2018-10-17 01:25] LABS: Lactate (Lactic Acid) 3.2 mmol/L (0.7-2.1)
[2018-10-17 01:31] LABS: BUN Creatinine Ratio 31.7 (6-22); Blood Urea Nitrogen 19 mg/dL (9-20); Calcium 9.2 mg/dL (8.4-10.2); Carbon Dioxide 28 mmol/L (22-32); Chloride 97 mmol/L (98-107); Estimated Glomerular Filt Rate > 60.0 mL/min (>60); Glucose 234 mg/dL (80-110); HEMOLYSIS 36 (0-50); Potassium 4.4 mmol/L (3.4-5.1); Sodium 140 mmol/L (137-145)
[2018-10-17] MEDS: SODIUM CHLORIDE 0.9% 1,000 ML 200 ML IV (01:34)
[2018-10-17] MEDS: PIPERACILLIN-TAZO 3.375 GM/50 ML FROZ.PIGGY IV ×4 (01:35→19:19)
[2018-10-17 01:41] LABS: Procalcitonin < 0.05 ng/mL (<0.5)
[2018-10-17] MEDS: ACETAMINOPHEN 650 MG SUPP PR (01:41)
--- NOTE | 2018-10-17 01:45 | PC.NURSE ---
Skin assessed while administering pr apap. No breakdown noted.
[2018-10-17 01:48] LABS: B Type Natriuretic Peptide < 100 (<100)
[2018-10-17] MEDS: SODIUM CHLORIDE 0.9% 1,000 ML 125 ML IV (02:40)
[2018-10-17] MEDS: levoFLOXacin 750 MG/150 ML PIGGYBACK 100 MG IV (02:56)
--- NOTE | 2018-10-17 03:00 | PC.NURSE ---
[facility] called to check pt status, informed that pt had been admitted.
[2018-10-17 03:13] LABS: Reflexed Lactate in 2 Hours Y
[2018-10-17 03:42] LABS: Lactate 2HR (Lactic Acid Rflx) 2.8 mmol/L (0.7-2.1)
--- NOTE | 2018-10-17 03:44 | PC.NURSE ---
Safe hand off from Juan BARBOSA. Pt arrived on floor at 0230. Pt is on tele, Sinus Tach w/ 1st degree AV BBB. Pt is hypertensive 170/83, P 112, R 18, Temp 101.3. Pt is on o2 @ 2liters NC 97%. Pt is A&O to Name and place, and is a bit aggressive and combative and will shake his fist in your face. Pt has hx of CVA w/ right sided contractures of upper limb and right sided lower rigidity. Upon inspection of skin, pt was found to have a healing stage 1 pressure injury on his rgt buttocks close to the midline, pictures were taken and EZ graph wound assessment documented. Pt has bruises and scaly skin noted in skin assessment. Pt needs Q2hr turns.
[2018-10-17] MEDS: VANCOMYCIN 1,000 MG in SODIUM CHLORIDE 0.9% 250 ML IV (04:30)
--- NOTE | 2018-10-17 05:12 | PC.NURSE ---
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
--- NOTE | 2018-10-17 06:32 | PM.HP.1 ---
History of Present Illness Date Patient Seen: 10/17/18 Time Patient Seen: 07:06 Chief complaint: Vomiting Narrative: This is a 63-year-old male, resident of [facility], who has post stroke dysphagia/aphasia and recurrent aspiration pneumonia. He presented yesterday with sudden onset of fever up to 101.3 and hypoxia into the 80s. He had vomited earlier in the day. This is a very close copy of what he went through a month ago when he was admitted for aspiration pneumonia and treated with Zosyn. It is difficult to get any additional history from him as he has a very flat affect, speaks minimally and responds best to yes/no questions. The chest x-ray was described as suggesting a left lung pneumonia but I am unable to see it on the PACS system to confirm that myself. Interestingly he had no complaints at the facility and was sent over at staff request due to the hypoxia and fever. His lactate is 3.2 but his procalcitonin is less than 0.05 with a white count of 15 and a left shift. Patient History Medical History Afib (Acute) BPH (benign prostatic hyperplasia) (Acute) CVA (cerebral vascular accident) (Acute) Coronary artery disease (Acute) Diabetes (Acute) GERD (gastroesophageal reflux disease) (Acute) Hyperlipidemia (Acute) Hypertension (Acute) MDD (major depressive disorder) (Acute) RLS (restless legs syndrome) (Acute) Seizure (Acute) Social History household members: other lives independently: No housing: senior care Smoking Status: Unknown if ever smoked alcohol intake: former Family & Social History Social History: household members other Prior Living Arrangements Skilled Nurse Facility lives independently No Safety & Behavioral: Feels Safe in Current Yes Environment Been Physically Hurt or No Threatened By a Person Suicide Plan Description No Plan Tobacco & Substance use: Smoking Status Unknown if ever smoked alcohol intake former Substance Use Type does not use Comment: He lives at [facility] due to post stroke complications. Not able to obtain significant family history details due to altered mentation. Meds Home Medications Medication Instructions Recorded Confirmed Type Barrier Cream 1 applic TOPICAL BID 09/06/18 09/06/18 History Cane: Single Point Adjustable Cane 1 dev MISCELLANEOUS DIRECTED 09/06/18 09/06/18 History CeraVe 1 applic TOPICAL BID 09/06/18 10/17/18 History Glucose: Home Monitor 0 dev MISCELLANEOUS DIRECTED 09/06/18 10/17/18 History Glucose: Test Strips 0 str MISCELLANEOUS DIRECTED 09/06/18 10/17/18 History Healthshake 240 ml PO BID 09/06/18 09/06/18 History Humalog U-100 Insulin 1 dose SUBCUT TID 09/06/18 10/17/18 History Lancet: Device 0 dev MISCELLANEOUS QID 09/06/18 10/17/18 History Lantus Solostar U-100 Insulin 26 unit SUBCUT DAILY 09/06/18 10/17/18 History [GRABBER] 1 ea MISCELLANEOUS DIRECTED 09/06/18 09/06/18 History acetaminophen 650 mg PO Q4H PRN 09/06/18 10/17/18 History aspirin 81 mg PO DAILY 09/06/18 10/17/18 History atorvastatin 40 mg PO QPM 09/06/18 10/17/18 History bisacodyl 5 mg PO PRN PRN 09/06/18 10/17/18 History bisacodyl 10 mg PO PRN PRN 09/06/18 10/17/18 History bisacodyl 10 mg HI PRN PRN 09/06/18 10/17/18 History cetirizine 10 mg PO QPM 09/06/18 10/17/18 History cholecalciferol (vitamin D3) 2,000 unit PO DAILY 09/06/18 10/17/18 History [Vitamin D3] clopidogrel [Plavix] 75 mg PO DAILY 09/06/18 10/17/18 History diltiazem HCl 120 mg PO DAILY 09/06/18 10/17/18 History docusate sodium 200 mg PO DAILY 09/06/18 10/17/18 History finasteride 5 mg PO QPM 09/06/18 10/17/18 History hydrocodone-acetaminophen 0.5 tab PO Q6H PRN 09/06/18 10/17/18 History hydrocodone-acetaminophen 1 tab PO Q6H PRN 09/06/18 10/17/18 History isosorbide mononitrate 60 mg PO DAILY 09/06/18 10/17/18 History ketoconazole 1 applic TOPICAL TU 09/06/18 10/17/18 History losartan 100 mg PO DAILY 09/06/18 10/17/18 History melatonin 6 mg PO BEDTIME 09/06/18 10/17/18 History metoprolol tartrate 25 mg PO BID 09/06/18 10/17/18 History mirtazapine 7.5 mg PO QPM 09/06/18 10/17/18 History mupirocin 1 applic TOPICAL TID PRN 09/06/18 10/17/18 History nystatin 1 applic TOPICAL BID PRN 09/06/18 10/17/18 History paroxetine HCl 40 mg PO DAILY 09/06/18 10/17/18 History phenytoin sodium extended 100 mg PO TID 09/06/18 10/17/18 History [Dilantin Extended] sennosides [senna] 17.2 mg PO BID 09/06/18 10/17/18 History tamsulosin [Flomax] 0.4 mg PO QPM 09/06/18 10/17/18 History Allergies Allergy/AdvReac Type Severity Reaction Status Date / Time No Known Drug Allergies Allergy Verified 10/17/18 00:26 Review of Systems Review of Systems No reported chest pain, abdominal pain, bleeding, rash, seizures. Positive for fevers, vomiting, hypoxia, tachycardia. All systems reviewed & are unremarkable except as noted in HPI and below and unobtainable due to mental status Exam Vital Signs (past 8 hours): - 10/17/18 00:20 10/17/18 00:30 10/17/18 01:00 Temperature 101.3 F H Pulse Rate 106 H 120 H 120 H Respiratory Rate 32 H 27 H 41 H Blood Pressure 168/86 H Blood Pressure [Left Arm] 171/76 H 148/83 H Pulse Oximetry 87 L 91 10/17/18 01:30 10/17/18 02:40 10/17/18 04:02 Temperature 101.3 F H 100.0 F H Pulse Rate 121 H 113 H Respiratory Rate 38 H 18 Blood Pressure 170/83 H Blood Pressure [Left Arm] 149/71 H Pulse Oximetry 93 95 10/17/18 05:11 Temperature Pulse Rate 106 H Respiratory Rate 16 Blood Pressure 126/79 Blood Pressure [Left Arm] Pulse Oximetry Oxygen Delivery Method Nasal Cannula Oxygen Flow Rate 2 Narrative Exam Narrative: He is resting in bed but quietly wakes up when I greet him and is oriented to name but not much else. There is no apparent distress His face is covered with severe acne. There is a bluish nevi, about 6 mm wide on the right cheek. Pupils are equally round and reactive to light and accommodation. Extraocular muscles are intact. Sclerae are pink and nonicteric. Throat looks normal. No lymph nodes are felt, head, neck, supraclavicular area. There is no thyromegaly. JVD is less than 6 cm. No carotid bruits are heard. Heart is regular rate and rhythm without murmur. Lungs are clear to auscultation bilaterally. Abdomen is soft, bowel sounds positive, nontender, no organomegaly. Extremities have no ankle edema. The muscles in the lower legs are quite atrophied. Skin notable for the areas on the face already described above. No other rash or jaundice other than some scratches on the legs. Neuro exam I am not able to detect any lateralizing deficit. He does have slow and rather simple speech patterns and is somewhat withdrawn. Cranial nerves 2-12 tested intact. There is no tremor Motor function appears to be 4/5 throughout. I did not test his gait or balance. Objective Labs Result Diagrams: 10/17/18 01:07 10/17/18 01:07 Labs: Laboratory Results - last 24 hr 10/17/18 10/17/18 10/17/18 01:07 01:07 01:07 WBC 15.0 H RBC 5.52 Hgb 16.5 Hct 49.3 MCV 89.4 MCH 30.0 MCHC 33.5 RDW 13.9 Plt Count 269 Neut % (Auto) 90.9 H Lymph % (Auto) 5.8 L Rogers % (Auto) 2.6 L Eos % (Auto) 0.4 L Baso % (Auto) 0.3 Neut # (Auto) 46099 H Lymph # (Auto) 900 L Rogers # (Auto) 400 Eos # (Auto) 100 Baso # (Auto) 0 Sodium 140 Potassium 4.4 Chloride 97 L Carbon Dioxide 28 BUN 19 Creatinine 0.60 L Estimated GFR > 60.0 BUN/Creatinine Ratio 31.7 H Glucose 234 H Lactate Calcium 9.2 B-Natriuretic Peptide < 100 Procalcitonin < 0.05 10/17/18 10/17/18 01:07 03:25 WBC RBC Hgb Hct MCV MCH MCHC RDW Plt Count Neut % (Auto) Lymph % (Auto) Rogers % (Auto) Eos % (Auto) Baso % (Auto) Neut # (Auto) Lymph # (Auto) Rogers # (Auto) Eos # (Auto) Baso # (Auto) Sodium Potassium Chloride Carbon Dioxide BUN Creatinine Estimated GFR BUN/Creatinine Ratio Glucose Lactate 3.2 H 2.8 H Calcium B-Natriuretic Peptide Procalcitonin Assessment & Plan Assessment & Plan narrative: Aspiration pneumonia/healthcare acquired pneumonia -continue triple antibiotic coverage as initiated in the emergency department last night of vancomycin, Zosyn and Levaquin. -continue supplemental oxygen as needed to maintain sats above 90% Type 2 diabetes mellitus -continue Humalog and Lantus -follow blood sugars AC and HS. -continue carb choice diet Paroxysmal AFib -continue diltiazem and Plavix Coronary artery disease -continue Plavix, metoprolol, atorvastatin Previous CVA with residual deficits of dysphagia and right-sided hemiparesis -continue Plavix -speech therapy evaluation Hyperlipidemia -continue atorvastatin Benign prostatic hypertrophy -continue Proscar and Flomax Hypertension -continue losartan, metoprolol, isosorbide, diltiazem Depression/insomnia -continue Remeron, paroxetine and melatonin Seizure disorder -continue phenytoin Quality VTE Deep Vein Thrombosis/Pulmonary Embolism Present on Admission: No
[2018-10-17] MEDS: DEXTROSE 5%-0.9% NS 1,000 ML 100 ML IV (06:54)
[2018-10-17 07:43] LABS: Lactate (Lactic Acid) 2.3 mmol/L (0.7-2.1)
[2018-10-17 07:46] LABS: Phenytoin / Dilantin 6.5 ug/mL (10-20)
--- NOTE | 2018-10-17 08:45 | CM.DANOTE ---
Addendum entered by Mel Warner LPN 10/17/18 09:23: Arlen/LEYDA reports she will find out who is on admissions today at and that person will call this DCPlanner. Arlen will fax clinical to the [facility] is they are unable to access the EMR. Original Note: Discharge Planning/Care Management DCP: assessment: case received, EMR reviewed and met with pt. Pt is found sitting up in bed, breakfast tray in front of him, emesis bag at side. Introduced self and role. Pt confirms he does live at [facility]; is currently on , says does not use it at the facility. He confirms he is not hungry and feels sick. PT is a 76 year old male who admitted yesterday afternoon to care of hospitalist team. READMIT: noted: pt last here 09/06-09/09 and with a return to [facility] Put a call into [facility] admission nurse cell which rings for long period of time without ending in vm. Have put a call into [facility] to see who is following at for admissions and if they have ability to see EMR. (if not, will plan to fax clinical later today). P: discuss in Team Rounds and clarify the pt's current living situation (is NOT RAL and NOT a assisted as per EMR documentation.) CM Discharge Assessment Start: 10/17/18 08:40 Freq: Status: Active Protocol: Document 10/17/18 08:42 ITV (Rec: 10/17/18 08:45 ITV [id number]) Discharge Planning Assessment Advance Directives? Yes Advance Directives on File Yes History Provided By Patient Medical Record Has Patient been admitted in last 30 Yes days? Comment pt was here 09/06 to 09/09 with a d/c to his home: [facility]. Type of transporation used prior to Relies on Others admit Comment went by ambulance to [facility] at last admission in August... likely same this time Facility Name Admitted From: [facility] Willing to Return to Facility? Yes Independent with ADL's No Is patient alert and oriented? alert: orientation unclear Whiteboard Updated in Patient Room with Yes name and ext. # of Supervisor/Port Director Review Status In Process Next Review Type Continued Stay Review
--- NOTE | 2018-10-17 08:56 | PM.PN.1 ---
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 The patient is resting in bed comfortably. 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 He answers questions in yes and no. He can be quite impudent and brash. He endorses shortness of breath. He denies headache, chest pain, abdominal pain, nausea, vomiting, fever, chills, dysuria, diarrhea or constipation. He is voiding (incontinent) and eliminating without difficulty. He is wheel chair and bed-bound. Exam Vital Signs (past 8 hours): - 10/17/18 01:00 10/17/18 01:30 10/17/18 02:40 Temperature 101.3 F H Pulse Rate 120 H 121 H 113 H Respiratory Rate 41 H 38 H 18 Blood Pressure 170/83 H Blood Pressure [Left Arm] 148/83 H 149/71 H Pulse Oximetry 93 95 10/17/18 04:02 10/17/18 05:11 10/17/18 08:52 Temperature 100.0 F H Pulse Rate 106 H Respiratory Rate 16 Blood Pressure 126/79 Blood Pressure [Left Arm] Pulse Oximetry 99 Oxygen Delivery Method Nasal Cannula Oxygen Flow Rate 2 Narrative Exam Narrative: General: Middle-aged gentleman lying in bed and in no acute distress, appears older than stated age and chronically ill, well-developed, well-nourished, previous stroke with cognitive impairment vs dementia, simple speech and mostly answers questions with yes and no only. HEENT: Normocephalic, atraumatic. External ears without defect. Pupils equal, round, and reactive to light. Anicteric sclerae, moist conjunctivae, and no lid lag. Neck: Supple with full range of motion. No lymphadenopathy or thyromegaly. Cardiovascular: Regular rate and rhythm without murmurs, rubs, or gallops appreciated. Pulmonary: Diminished throughout but appears to be clear to auscultation bilaterally. No crackles or wheeze. Normal respiratory effort with no use of accessory muscles. Abdomen: Soft, bowel sounds present, non-tender, non-distended. No hepatosplenomegaly or masses appreciated. Extremities: No clubbing, cyanosis, or edema. Skin: Normal temperature, turgor, and texture; no rash, ulcers, or subcutaneous nodules appreciated. Neurological: Cranial nerves grossly intact. Psychiatric: Previous stroke with cognitive impairment vs. 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 Objective Labs Result Diagrams: 10/17/18 01:07 10/17/18 01:07 Labs: Laboratory Results - last 24 hr 10/17/18 10/17/18 10/17/18 01:07 01:07 01:07 WBC 15.0 H RBC 5.52 Hgb 16.5 Hct 49.3 MCV 89.4 MCH 30.0 MCHC 33.5 RDW 13.9 Plt Count 269 Neut % (Auto) 90.9 H Lymph % (Auto) 5.8 L [place] % (Auto) 2.6 L Eos % (Auto) 0.4 L Baso % (Auto) 0.3 Neut # (Auto) 93539 H Lymph # (Auto) 900 L [place] # (Auto) 400 Eos # (Auto) 100 Baso # (Auto) 0 Sodium 140 Potassium 4.4 Chloride 97 L Carbon Dioxide 28 BUN 19 Creatinine 0.60 L Estimated GFR > 60.0 BUN/Creatinine Ratio 31.7 H Glucose 234 H Lactate Calcium 9.2 B-Natriuretic Peptide < 100 Procalcitonin < 0.05 Phenytoin 10/17/18 10/17/18 10/17/18 01:07 03:25 07:30 WBC RBC Hgb Hct MCV MCH MCHC RDW Plt Count Neut % (Auto) Lymph % (Auto) [place] % (Auto) Eos % (Auto) Baso % (Auto) Neut # (Auto) Lymph # (Auto) [place] # (Auto) Eos # (Auto) Baso # (Auto) Sodium Potassium Chloride Carbon Dioxide BUN Creatinine Estimated GFR BUN/Creatinine Ratio Glucose Lactate 3.2 H 2.8 H 2.3 H Calcium B-Natriuretic Peptide Procalcitonin Phenytoin 10/17/18 07:30 WBC RBC Hgb Hct MCV MCH MCHC RDW Plt Count Neut % (Auto) Lymph % (Auto) [place] % (Auto) Eos % (Auto) Baso % (Auto) Neut # (Auto) Lymph # (Auto) [place] # (Auto) Eos # (Auto) Baso # (Auto) Sodium Potassium Chloride Carbon Dioxide BUN Creatinine Estimated GFR BUN/Creatinine Ratio Glucose Lactate Calcium B-Natriuretic Peptide Procalcitonin Phenytoin 6.5 L Assessment & Plan Assessment & Plan narrative: Vish Marks is a 63-year-old male with a past medical history significant for CAD, previous CVA with residual deficit of dysphagia/aphasia and right hemiparesis, hypertension, hyperlipidemia, diabetes mellitus type 2, insulin using, atrial fibrillation, GERD, BPH, RLS, and depression who presented via EMS for hypoxemia and fever after vomiting and probable aspiration event. 1. Acute sepsis, present on admission. Resolved. -Meets sepsis criteria: Temp 101.3 F, HR 106, RR 32, WBC 15.0, SpO2 87% with suspected source of infection aspiration. -Early goal-directed therapy med including IV fluid resuscitation and broad-spectrum antibiotics. -Lactic acid initially elevated at 3.2. Continue to trend until under 2.0. 2. Acute hypoxemic respiratory failure, secondary to aspiration, present on admission. Resolving. -Patient presented with hypoxemia with SpO2 87% on room air with fever and hypoxemia with history of vomiting earlier that day with probable aspiration event. -Consulted respiratory therapy for evaluation and treatment. Continue supplemental oxygen as needed to keep oxygen saturations 88% and above. Continue duonebs every 6 hours as needed. 3. Acute aspiration vs HCAP pneumonia, present on admission. Active. -Patient resides at a long-term care facility. He presented with fever and hypoxemia with history of vomiting earlier that day with probable aspiration event. -Chest x-ray demonstrated patchy airspace disease more prominent on the left. -Continue aspiration precautions with head of the bed 30? in above at all times. -WBC 15.0 and PCT < 0.05. Continue to trend. -Continue vancomycin with dosing per pharmacist, Levaquin 750 mg daily and Zosyn 3.375 g every 8 hours for broad-spectrum gram-positive (including MRSA) and gram-negative bacteria, as well as, anaerobes coverage. 4. History of seizures, chronic, present on admission. Stable. -Possibly secondary to previous CVA. -Continue Dilantin 100 mg 3 times daily. -Ordered dilantin level, pending. -Continue seizure precautions. 5. Diabetes mellitus type 2, insulin using, chronic, present on admission. Stable. -Hemoglobin A1c 8.8% on 07/2018. -Continue lantus 26 units daily tomorrow and cover with half normal today. -Continue ACHS blood glucose checks and low-dose correctional scale insulin. -Continue dysphagia mechanical with nectar thick liquids per ST. 6. 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 Stable. -He appears to have cognitive impairment vs dementia, potentially of vascular nature, given history of CVA. -Previously placed on a dysphagia mechanical and thins diet by speech therapy. Ordered speech therapy evaluation and treatment. -Continue aspiration and seizure precautions. -Continue aspirin 81 mg daily and Plavix 75 mg daily. 7. Paroxysmal atrial fibrillation, chronic, present on admission. Stable. -Currently in SR. -Continue Diltiazem CD 120 mg daily and metoprolol tartrate 25 mg twice daily. -Continue aspirin 81 mg daily and clopidogrel 75 mg daily. 8. Hypertension, chronic, present on admission. Stable. -Continue losartan, diltiazem, and metoprolol. BP well controlled. 9. CAD, chronic, present on admission. Stable. -No chest pain or active disease. -Continue aspirin, Plavix, losartan, metoprolol, diltiazem, isosorbide mononitrate, and atorvastatin. 10. BPH, chronic, present on admission. Stable. -Continue flomax 0.4 mg and finasteride 5 mg daily at bedtime. 11. Chronic constipation, present on admission. Stable -Continue colace 100 mg twice daily and Senna 8.6 mg twice daily. 12. Depression with insomnia, present on admission. Stable. -Continue Remeron, paroxetine and melatonin. Disposition: Patient likely to discharge in several days once aspiration pneumonia adequately treated and he is off of oxygen. Quality VTE Deep Vein Thrombosis/Pulmonary Embolism Present on Admission: No
[2018-10-17 09:30] LABS: Reflexed Lactate in 2 Hours Y
[2018-10-17 09:58] LABS: Lactate 2HR (Lactic Acid Rflx) 2.2 mmol/L (0.7-2.1)
[2018-10-17] MEDS: CHOLECALCIFEROL (VITAMIN D3) 1,000 UNIT TABLET 2000 UNIT PO (10:19)
[2018-10-17] MEDS: ASPIRIN 81 MG TAB PO (10:19)
[2018-10-17] MEDS: CLOPIDOGREL 75 MG TABLET PO (10:20)
[2018-10-17] MEDS: dilTIAZem CD 120 MG CAP PO (10:20)
[2018-10-17] MEDS: LOSARTAN 50 MG TABLET 100 MG PO (10:21)
[2018-10-17] MEDS: ISOSORBIDE MONONITRATE ER 30 MG TABLET 60 MG PO (10:21)
[2018-10-17] MEDS: SENNOSIDES 8.6 MG TABLET 17.2 MG PO ×2 (10:22→20:11)
[2018-10-17] MEDS: METOPROLOL IR 25 MG TABLET PO ×2 (10:22→20:13)
[2018-10-17] MEDS: PARoxetine 20 MG TABLET 40 MG PO (10:22)
[2018-10-17] MEDS: PHENYTOIN ER 100 MG CAPSULE PO ×3 (10:22→20:10)
[2018-10-17] MEDS: INSULIN GLARGINE 100 UNIT/ML 3ML PEN 26 UNIT SUBCUT (10:23)
[2018-10-17] MEDS: VANCOMYCIN 1,000 MG/200 ML FROZ.PIGGY 200 MG IV ×2 (12:36→20:09)
--- NOTE | 2018-10-17 15:13 | DIET.PN ---
Diet consult received r/t wt loss, aspiration pna. New admit. Eaten one meal so far - 25%. Dx: ememsis, pna Hx: CVA, dysphagia, aphasia, severe dementia Diet: CCD med, dysphagia mechanical w/NT liq Ht 178cm WT 75kg Wt prev admit (09/06): 76kg UBW: unknown BMI: 24 Assessment: Inadeqaute PO intake. Lost approx 2# in 1mo for 1% change; wt loss prior to that unknown. Is at risk of nutritional compromise r/t dysphagia and dementia Intervention: Add ONS to meals; send maru/pro dense foods. Monitor PO intake to better assess trend. Plan: f/u Tues
--- NOTE | 2018-10-17 16:10 | PC.NURSE ---
Day Shift- Pt oriented to his full name and states hospital. Does call out intermittently and loudly NO when staff asking questions. High fall risk precautions in place, bed alarm on. Aspiration precautions in place, suction in room and seizure precautions in place with seizure pads per Dr. Roman. Reposition every 2 hours in bed, JAY bed tilt utilized. HOB above 30 degrees at all times beside repositioning upwards in bed. personal secretary called over to Sudhir CASTRO and received info regarding pt's mobility and diet. Pt is bed bound and uses luis fernando lift. Pt states he gets to a wheelchair. His diet is reported as general soft with nectar thick liquids talking his pills crushed in apple sauce. Pt given his pills crushed with chocolate pudding per pt's preference at that time. pt given imdur pills whole, pt crushed his meds by chewing. Pt does move the food around in his mouth with a chewing like motion favoring food on his left side. No coughing, choking noted during medication administration. Right buttock area appears to be a healing ulcer wound, blanchable, barrier cream applied. Pt on waffle cushion when placed in supine position otherwise reposition from side to side.
[2018-10-17] MEDS: LORATADINE 10 MG TABLET PO (16:52)
[2018-10-17] MEDS: MIRTAZAPINE 15 MG TABLET 7.5 MG PO (16:52)
[2018-10-17] MEDS: INSULIN ASPART 100 UNIT/ML INSULN PEN SUBCUT (16:53)
[2018-10-17] MEDS: FINASTERIDE 5 MG TABLET PO (16:53)
[2018-10-17] MEDS: TAMSULOSIN 0.4 MG CAPSULE PO (16:54)
[2018-10-17 18:21] LABS: Lactate (Lactic Acid) 1.7 mmol/L (0.7-2.1)
[2018-10-17] MEDS: SODIUM CHLORIDE 0.9% 1,000 ML 75 ML IV (19:20)
[2018-10-17] MEDS: ATORVASTATIN 20 MG TABLET 40 MG PO (20:12)
[2018-10-17] MEDS: MELATONIN 3 MG TABLET 6 MG PO (20:13)
[2018-10-18] VITALS (10 sets, daily range): BP systolic 104–129; BP diastolic 55–71; PULSE 66–79; RESP 16–18; TEMP 36.1–37.3; O2SAT 90–94
--- NOTE | 2018-10-18 00:30 | PC.NURSE ---
2300- Pt admit for aspiration pneumonia; sats stable on RA at this time w/ coarse lung sounds. Q2hr turns taking place in bed, HOB 30 degrees, BA on, pt is oriented to self only. Tele in place reading SR; hx of seizure precautions so seizure pads in place. Tolerating nectar thick dysphagia diet. NS running as ordered into L hand IV; AC/HS BG checks taking place. 0015- Pt able to nod yes/no to my questions, that is the extent of his talking. Lying on back at this time. 0400- Turned and changed pt, screaming and yelling. Refusing vitals at this time. 0430- Pt's Vanco Trough resulted as 22.9; [facility] consulted w/ this RN and we changed the timing of the next Vanco to 0800 today.
[2018-10-18] MEDS: PIPERACILLIN-TAZO 3.375 GM/50 ML FROZ.PIGGY IV ×3 (02:20→17:20)
[2018-10-18] MEDS: levoFLOXacin 500 MG/100 ML PIGGYBACK 100 MG IV (03:00)
[2018-10-18 03:49] LABS: Add Manual Diff / Slide Review NO; Basophils Absolute Auto 100 /uL (0-100); Basophils Percent Auto 0.4 % (0-2); Eosinophils Absolute Auto 200 /uL (0-450); Hematocrit 39.7 % (41-53); Hemoglobin 13.3 g/dL (13.5-17.5); Lymphocytes Absolute Auto 1200 /uL (1100-4500); Lymphocytes Percent Auto 6.5 % (25-40); Mean Corpuscular HGB Conc 33.4 % (30-36); Mean Corpuscular Hemoglobin 29.5 PG (26-34); Mean Corpuscular Volume 88.1 fL (80-100); Monocytes Absolute Auto 1300 /uL (0-900); Monocytes Percent Auto 7.3 % (3-14); Neutrophils Absolute Auto 15500 /uL (1500-7000); Neutrophils Percent Auto 84.8 % (50-75); Platelet Count 213 X10^3/uL (150-400); Red Blood Cell Count 4.51 X10^6/uL (4.5-5.9); Red Cell Distribution Width 13.9 % (11.6-14.8); White Blood Cell Count 18.3 X10^3/uL (4.5-11.0)
[2018-10-18 03:52] LABS: Alanine Aminotransferase 52 IU/L (21-72); Albumin 3.3 g/dL (3.5-5.0); Albumin Globulin Ratio 0.8 (1.0-2.8); Alkaline Phosphatase 114 U/L (38-126); Aspartate Aminotransferase 29 IU/L (17-59); BUN Creatinine Ratio 19.2 (6-22); Bilirubin Total 0.5 mg/dL (0.2-1.3); Blood Urea Nitrogen 23 mg/dL (9-20); Calcium 8.3 mg/dL (8.4-10.2); Carbon Dioxide 30 mmol/L (22-32); Chloride 103 mmol/L (98-107); Estimated Glomerular Filt Rate > 60.0 mL/min (>60); Globulin 3.9 g/dL (1.7-4.1); Glucose 90 mg/dL (80-110); HEMOLYSIS < 15 (0-50); Magnesium 1.5 mg/dL (1.6-2.3); Potassium 3.4 mmol/L (3.4-5.1); Sodium 140 mmol/L (137-145); Total Protein 7.2 g/dL (6.3-8.2)
[2018-10-18] MEDS: VANCOMYCIN TROUGH 1 REQUEST MISC (04:03)
[2018-10-18 04:07] LABS: Procalcitonin 6.34 ng/mL (<0.5)
[2018-10-18 04:16] LABS: Vancomycin Trough 22.9 ug/mL (10-20)
--- NOTE | 2018-10-18 06:33 | PC.NURSE ---
DIRECTOR OF CHILD WELFARE SERVICES note refused vitals.
[2018-10-18] MEDS: VANCOMYCIN 1,000 MG/200 ML FROZ.PIGGY 200 MG IV ×2 (08:12→23:00)
[2018-10-18] MEDS: ASPIRIN 81 MG TAB PO (08:15)
[2018-10-18] MEDS: CLOPIDOGREL 75 MG TABLET PO (08:16)
[2018-10-18] MEDS: dilTIAZem CD 120 MG CAP PO (08:16)
[2018-10-18] MEDS: DOCUSATE ORAL LIQUID 100 MG/10 ML UDC 200 MG PO (08:16)
[2018-10-18] MEDS: CHOLECALCIFEROL (VITAMIN D3) 1,000 UNIT TABLET 2000 UNIT PO (08:16)
[2018-10-18] MEDS: INSULIN GLARGINE 100 UNIT/ML 3ML PEN 26 UNIT SUBCUT (08:17)
[2018-10-18] MEDS: ISOSORBIDE MONONITRATE ER 30 MG TABLET 60 MG PO (08:18)
[2018-10-18] MEDS: METOPROLOL IR 25 MG TABLET PO ×2 (08:19→20:19)
[2018-10-18] MEDS: PARoxetine 20 MG TABLET 40 MG PO (08:19)
[2018-10-18] MEDS: PHENYTOIN ER 100 MG CAPSULE PO ×2 (08:20→14:32)
[2018-10-18] MEDS: SENNOSIDES 8.6 MG TABLET 17.2 MG PO ×2 (08:20→20:19)
[2018-10-18] MEDS: LOSARTAN 50 MG TABLET 100 MG PO (09:18)
--- NOTE | 2018-10-18 09:40 | PC.NURSE ---
Addendum entered by Estefany Adams R.N. 10/18/18 15:25: MEDS - pt assisted with meds in applesauce, advised to swallow; however, noted that pt was chewing his long acting medication, discussed with Dr. Roman and new orders rec'd to adjust medications to crushable and replaced prn insulin SS to scheduled mealtime. Addendum entered by Estefany Adams R.N. 10/18/18 12:22: GI- Speechin for eval,continue dysphaia mechanical and nectar thick. Original Note: AM NOTE - pt awake, non verbal other than yes or no, can follow basic directions, assist with turn, r hand contracture, does not use, can bend both R&L knees to assist with turn, greater rom L leg, when had enough po, pt shouts no very loudly, needed to rest and then returned later for addl care, ra 92%, awake and upright for po intake, swallows, does have a periodic cough at times, not during po, bs coarse w/crackles mid lobes, has redness at r groin and small spot opening posterior scrotal area, incont urine and soft stool, karishma care performed and barrier cream applied, repositioned w/hob 30degrees, noris francisco j hose, seizure pads, hr 78.
--- NOTE | 2018-10-18 11:47 | CM.DPC ---
DCP Cont: Called Ailyn Hyman from [facility] to discuss baseline care, and accepting him back. Stated that he is a mechanical lift, as he has been here. She stated that he has not been on oxygen before, but they can accept him back on oxygen, if needed. Confirmed with physical therapy team that they just signed off on him today, for he has reached his baseline. Ailyn stated that if he is discharged tomorrow, she will need to come over and revaluate him, since its over 24 hours that he has been here. P: DCP to follow closely. Will update Ailyn if patient is ready for discharge tomorrow if he is medically stable so she can come over to evaluate him. Gali Schwartz RN/Signals Collection Technician
--- NOTE | 2018-10-18 11:52 | PT.IPTN ---
Current Diagnoses Pneumonia, unspecified organism (10/17/18) Physical Therapy Treatment Note Notes Pt lives at [facility], is dependent at baseline, bedbound, uses a mechanical lift for all transfers. There has been no acute decline in functional mobility, and there are no acute PT goals to be working toward. If [facility] can continue providing this level of assist then recommend pt return, otherwise pt will need LTC. Acute PT will sign off.
[2018-10-18] MEDS: SODIUM CHLORIDE 0.9% 1,000 ML 75 ML IV (13:36)
[2018-10-18] MEDS: INSULIN ASPART 100 UNIT/ML INSULN PEN SUBCUT ×2 (13:47→17:19)
--- NOTE | 2018-10-18 14:26 | OT.IP.TRT ---
Current Diagnoses Pneumonia, unspecified organism (10/17/18) Occupational Therapy Treatment Note M3 OT- IP Subjective and Pain Start: 10/18/18 14:23 Freq: Status: Active Protocol: Document 10/18/18 14:23 [facility] (Rec: 10/18/18 14:26 [facility] [id number]) OT- Subjective Occupational Therapy Visit Type Type Administrative Note Notes Pt prior at [facility] was completely dependent for all ADL and use of luis fernando for transfer needs, therefore discharge from OT eval at this time. Once medically stable to discharge back to [facility].
--- NOTE | 2018-10-18 14:45 | ST.IPIE ---
Care Team Visit Care Team Role Provider Type Estefany Yoon MD Family Provider Physician Primary Care Provider Specialty: Medical Address: [address], [address] Email: Dmitriy Morton DO Emergency Provider Physician Specialty: Emergency Medicine Address: [address] [place] [address], [id number] Email: Inderjit Jackson MD Admit Provider Physician Attending Provider Specialty: Medical Address: [address] [place] [address], [place], [address] Email: Current Diagnoses Pneumonia, unspecified organism (10/17/18) Past Medical History (Last Reviewed 10/17/18 @ 06:32 by Inderjit Jackson MD) Afib (Acute Medical) BPH (benign prostatic hyperplasia) (Acute Medical) CVA (cerebral vascular accident) (Acute Medical) multiple with right sided contractures weakness and dysphasia Coronary artery disease (Acute Medical) Diabetes (Acute Medical) GERD (gastroesophageal reflux disease) (Acute Medical) Hyperlipidemia (Acute Medical) Hypertension (Acute Medical) MDD (major depressive disorder) (Acute Medical) RLS (restless legs syndrome) (Acute Medical) Seizure (Acute Medical) ST IP Initial Evaulation Report FISH HOUSEKEEPER Clinical Swallow Evaluation Start: 10/18/18 12:46 Freq: Status: Active Protocol: Document 10/18/18 12:46 MG (Rec: 10/18/18 13:07 MG [id number]) Clinical Swallow Evaluation Session Time Visit Start Time 12:10 Visit Stop Time 12:30 Total Visit Minutes 20 Visit Information Visit Number 1 Setting Assessment Location Acute Care Visit Type Note Type Initial Evaluation Next Note Type Next Note Type Treatment Note Patient Information Identification Type Name ID Wristband History Pt is a 63-year-old male, resident of [facility], who has post stroke dysphagia/aphasia and recurrent aspiration pneumonia . He presented yesterday with sudden onset of fever up to 101.3 and hypoxia into the 80s . He had vomited earlier in the day. This is similar to what he went through a month ago when he was admitted for aspiration pneumonia. The chest x-ray was described as suggesting a left lung pneumonia. Pt had no complaints at the facility and was sent over at staff request due to the hypoxia and fever. Subjective Observations Pt has a very flat affect, speaks minimally and responds best to yes/no questions. Pt has a history of combative and resistant behavior. Student FISH HOUSEKEEPER and FISH HOUSEKEEPER observed pt during lunch, where he had a dysphagia mechanical food and nectar thick liquids. Evaluation Liquids Trialed Prosper Solids Trialed Dysphagia Mechanical Administration Type Controlled Cup Sip Self-Feeding Oral Impairment WFL Oral Strategies Upright at 90 degrees Lingual Sweep Controlled Bite/Sip Size Alternate Liquids/Solids Oral Phase Comments Pt was observed to have some lingual loss of food and liquid possibly due to significant right sided weakness. However, it was noted that pt did a spontaneous lingual sweep as well as wiping his mouth with a napkin and wiped off residue effectively. Nursing staff reported that pt takes small bites of food and masticates for an extended period of time to make sure food is effectively chewed. Pharyngeal Impairment WFL Pharyngeal Strategies Sitting Upright (90 deg) Pharyngeal Phase Comments Pt did not show any s/sx of aspiration during meal time. Nursing staff reported that they thought pt did not have any problems with his current diet order at that time. Some intermittent throat clearing was observed during the meal. Pt ate small portions of food and took smaller sips of liquid. Pt spontaneously alternated liquid/solids. Findings Rehabilitation Potential Fair Impressions Pt has dysphagia and is currently on a dysphagia mechanical/nectar thick liquid diet order. Pt appears to be managing well with current diet order per nursing staff reports and clinical observation during meal time. Continue to keep the same diet for the pt, have pt sit upright in bed and self- feeding. Diet Recommendations Liquids Order Prosper Diet Order Dysphagia Mechanical Medication Recommendations As Tolerated Aspiration Precautions Recommended Precautions Upright at 90 Degrees Alternate Liquids/Solids Small Bites/Sips Lingual Sweep Treatment Plan Placement Recommendations after Environmental Compliance Technician Care Facility Discharge Appropriate for Therapy Yes Therapy Recommendations Follow-up with pt to monitor if diet recommendations continue to be efficient for the pt. Dysphagia Goals Pt will tolerate current diet while still maintaining nutrition and hydration needs and not show any overt s/sx of aspiration. FISH HOUSEKEEPER Follow Up x1
--- NOTE | 2018-10-18 15:09 | PM.PN.1 ---
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 The patient is resting in bed comfortably. 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 He answers questions in yes and no, therefore, it is difficult to assess his cognitive understanding of what is happening in regard to his care. He continues to be sensitive and at times for no apparent reason will yell when answering a question. Today he specifically answered no when asked if he is urinating and eliminating without difficulty. He then answered no to constipation and/or diarrhea. He denies headache, chest pain, shortness of breath abdominal pain, nausea, vomiting, fever, chills, dysuria, diarrhea or constipation. He is voiding (incontinent) and eliminating without difficulty. He is wheel chair and bed-bound. Exam Vital Signs (past 8 hours): - 10/18/18 07:52 10/18/18 08:00 10/18/18 09:31 Temperature 98.7 F Pulse Rate 78 Respiratory Rate 16 Blood Pressure 125/71 Pulse Oximetry 93 92 93 10/18/18 11:00 Temperature 97.8 F Pulse Rate 66 Respiratory Rate 16 Blood Pressure 104/55 L Pulse Oximetry 94 Fraction of Inspired Oxygen 21 Oxygen Delivery Method Room Air Oxygen Flow Rate 0 Narrative Exam Narrative: General: Middle-aged gentleman lying in bed and in no acute distress, appears older than stated age and chronically ill, well-developed, well-nourished, previous stroke with cognitive impairment/dementia, simple speech and answers questions with yes and no only. HEENT: Normocephalic, atraumatic. External ears without defect. Pupils equal, round, and reactive to light. Anicteric sclerae, moist conjunctivae, and no lid lag. Neck: Supple with full range of motion. No lymphadenopathy or thyromegaly. Cardiovascular: Regular rate and rhythm without murmurs, rubs, or gallops appreciated. Pulmonary: Diminished throughout but appears to be clear to auscultation bilaterally. No crackles or wheeze. Normal respiratory effort with no use of accessory muscles. Abdomen: Soft, bowel sounds present, non-tender, non-distended. No hepatosplenomegaly or masses appreciated. Extremities: No clubbing, cyanosis, or edema. Skin: Normal temperature, turgor, and texture; no rash, ulcers, or subcutaneous nodules appreciated. Neurological: Cranial nerves grossly intact. Psychiatric: Previous stroke with cognitive impairment/dementia, behavior consistent with slip sheeter and likely on the autism spectrum. Objective Labs Result Diagrams: 10/18/18 03:30 10/18/18 03:30 Labs: Laboratory Results - last 24 hr 10/17/18 10/18/18 10/18/18 18:00 03:30 03:30 WBC 18.3 H RBC 4.51 Hgb 13.3 L Hct 39.7 L MCV 88.1 MCH 29.5 MCHC 33.4 RDW 13.9 Plt Count 213 Neut % (Auto) 84.8 H Lymph % (Auto) 6.5 L [place] % (Auto) 7.3 Eos % (Auto) 1.0 L Baso % (Auto) 0.4 Neut # (Auto) 67593 H Lymph # (Auto) 1200 [place] # (Auto) 1300 H Eos # (Auto) 200 Baso # (Auto) 100 Sodium Potassium Chloride Carbon Dioxide BUN Creatinine Estimated GFR BUN/Creatinine Ratio Glucose Lactate 1.7 Calcium Magnesium Total Bilirubin AST ALT Alkaline Phosphatase Total Protein Albumin Globulin Albumin/Globulin Ratio Procalcitonin Vancomycin Trough 22.9 H* 10/18/18 10/18/18 03:30 03:30 WBC RBC Hgb Hct MCV MCH MCHC RDW Plt Count Neut % (Auto) Lymph % (Auto) [place] % (Auto) Eos % (Auto) Baso % (Auto) Neut # (Auto) Lymph # (Auto) [place] # (Auto) Eos # (Auto) Baso # (Auto) Sodium 140 Potassium 3.4 Chloride 103 Carbon Dioxide 30 BUN 23 H Creatinine 1.20 Estimated GFR > 60.0 BUN/Creatinine Ratio 19.2 Glucose 90 D Lactate Calcium 8.3 L Magnesium 1.5 L Total Bilirubin 0.5 AST 29 ALT 52 Alkaline Phosphatase 114 Total Protein 7.2 Albumin 3.3 L Globulin 3.9 Albumin/Globulin Ratio 0.8 L Procalcitonin 6.34 H Vancomycin Trough Assessment & Plan Assessment & Plan narrative: Vish Marks is a 63-year-old male with a past medical history significant for CAD, previous CVA with residual deficit of dysphagia/aphasia and right hemiparesis, hypertension, hyperlipidemia, diabetes mellitus type 2, insulin using, atrial fibrillation, GERD, BPH, RLS, and depression who presented via EMS for hypoxemia and fever after vomiting and probable aspiration event. 1. Acute sepsis, present on admission. Resolved. -Meets sepsis criteria: Temp 101.3 F, HR 106, RR 32, WBC 15.0, SpO2 87% with suspected source of infection aspiration. -Early goal-directed therapy med including IV fluid resuscitation and broad-spectrum antibiotics. -Lactic acid initially elevated at 3.2. Continue to trend until under 2.0. 2. Acute hypoxemic respiratory failure, secondary to aspiration, present on admission. Resolving. -Patient presented with hypoxemia with SpO2 87% on room air with fever and hypoxemia with history of vomiting earlier that day with probable aspiration event. -Consulted respiratory therapy for evaluation and treatment. Continue supplemental oxygen as needed to keep oxygen saturations 88% and above. Continue duonebs every 6 hours as needed. 3. Acute aspiration vs HCAP pneumonia, present on admission. Active. -Patient resides at a long-term care facility. He presented with fever and hypoxemia with history of vomiting earlier that day with probable aspiration event. There is question to whether the patient had a seizure or not as his Dilantin level is subtherapeutic. Also nursing has noted that patient chews his pills, therefore, his long-acting pills were switched to short-acting including his Dilantin which may be why his level is low and is now being given in a suspension. -Chest x-ray demonstrated patchy airspace disease more prominent on the left. -Continue aspiration precautions with head of the bed 30? in above at all times. -Initial WBC 15.0 and PCT < 0.05. Both are trending up and likely peaking at 18.3 and 6.34. Continue to trend daily. -Continue vancomycin with dosing per pharmacist, Levaquin 750 mg daily and Zosyn 3.375 g every 8 hours for broad-spectrum gram-positive (including MRSA) and gram-negative bacteria, as well as, anaerobes coverage. -Consulted speech therapy for evaluation and treatment, pending. 4. History of seizures, chronic, present on admission. Stable. -Seizures may be secondary to previous CVA. -Continue Dilantin suspension 100 mg 3 times daily. -Dilantin level subtherapeutic at 6.5 and precipitating aspiration event may have been a seizure? Plan to repeat Dilantin level in 3 days. -Continue seizure precautions. 5. Diabetes mellitus type 2, insulin using, chronic, present on admission. Stable. -Hemoglobin A1c 8.8% on 07/2018. -Continue Lantus 26 units daily and nutritional insulin. -Continue ACHS blood glucose checks and low-dose correctional scale insulin. -Continue dysphagia mechanical with nectar thick liquids. Ordered speech therapy evaluation and treatment 6. 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 Stable. -He appears to have cognitive impairment vs dementia, potentially of vascular nature, given history of CVA. -Previously placed on a dysphagia mechanical and thins diet by speech therapy. Ordered speech therapy evaluation and treatment. -Continue aspiration and seizure precautions. -Continue aspirin 81 mg daily and Plavix 75 mg daily. 7. Paroxysmal atrial fibrillation, chronic, present on admission. Stable. -Currently in SR. -Continue Diltiazem CD 120 mg daily and metoprolol tartrate 25 mg twice daily. -Continue aspirin 81 mg daily and clopidogrel 75 mg daily. 8. Hypertension, chronic, present on admission. Stable. -Continue losartan, diltiazem, and metoprolol. BP well controlled. 9. CAD, chronic, present on admission. Stable. -No chest pain or active disease. -Continue aspirin, Plavix, losartan, metoprolol, diltiazem, isosorbide mononitrate, and atorvastatin. 10. BPH, chronic, present on admission. Stable. -Continue flomax 0.4 mg and finasteride 5 mg daily at bedtime. 11. Chronic constipation, present on admission. Stable -Continue colace 100 mg twice daily and Senna 8.6 mg twice daily. 12. Depression with insomnia, present on admission. Stable. -Continue Remeron, paroxetine and melatonin. Disposition: Patient likely to discharge in several days once aspiration pneumonia adequately treated and he is off of oxygen. Quality VTE Deep Vein Thrombosis/Pulmonary Embolism Present on Admission: No
[2018-10-18] MEDS: FINASTERIDE 5 MG TABLET PO (17:17)
[2018-10-18] MEDS: MIRTAZAPINE 15 MG TABLET 7.5 MG PO (17:17)
[2018-10-18] MEDS: TAMSULOSIN 0.4 MG CAPSULE PO (17:17)
[2018-10-18] MEDS: LORATADINE 10 MG TABLET PO (17:17)
[2018-10-18] MEDS: ISOSORBIDE MONONITRATE 20 MG TABLET PO (17:17)
[2018-10-18] MEDS: dilTIAZem 30 MG TABLET PO (17:18)
[2018-10-18] MEDS: MAGNESIUM SULFATE 2 GM/50 ML PIGGYBACK IV (17:52)
[2018-10-18] MEDS: POTASSIUM CHLORIDE 40 MEQ in SODIUM CHLORIDE 0.9% 500 ML 130 ML IV (19:04)
[2018-10-18] MEDS: MELATONIN 3 MG TABLET 6 MG PO (20:19)
[2018-10-18] MEDS: ATORVASTATIN 20 MG TABLET 40 MG PO (20:19)
[2018-10-18] MEDS: PHENYTOIN ORAL SUSP 125 MG/5 ML 100 MG PO (20:20)
[2018-10-19] VITALS (12 sets, daily range): BP systolic 123–160; BP diastolic 67–94; PULSE 61–72; RESP 16–20; TEMP 36.3–36.9; O2SAT 94–99
[2018-10-19] MEDS: dilTIAZem 30 MG TABLET PO ×4 (00:35→23:41)
--- NOTE | 2018-10-19 00:57 | PC.NURSE ---
2300- Pt admit for aspiration pneumonia, receiving IV abx for treatment. Wheelchair bound at baseline, q2hr turns in bed, w/ brief for hx of incontinence. Oriented to self only w/ some developmental delay noted. On tele reading SR; cont SpO2 in place w/ stable sats; dyshagia diet w/ HOB>30 degrees. Seizure precautions in place for hx of seizures; NS running as ordered. 0030- Diltiazem given as ordered crushed w/ applesauce, pt tolerated.
[2018-10-19] MEDS: PIPERACILLIN-TAZO 3.375 GM/50 ML FROZ.PIGGY IV ×3 (02:46→18:03)
[2018-10-19] MEDS: levoFLOXacin 500 MG/100 ML PIGGYBACK 100 MG IV (03:47)
[2018-10-19 06:52] LABS: Add Manual Diff / Slide Review NO; Basophils Absolute Auto 100 /uL (0-100); Basophils Percent Auto 0.6 % (0-2); Eosinophils Absolute Auto 500 /uL (0-450); Eosinophils Percent Auto 3.9 % (2-4); Hematocrit 38.7 % (41-53); Hemoglobin 12.8 g/dL (13.5-17.5); Lymphocytes Absolute Auto 900 /uL (1100-4500); Lymphocytes Percent Auto 6.9 % (25-40); Mean Corpuscular HGB Conc 33.2 % (30-36); Mean Corpuscular Hemoglobin 29.8 PG (26-34); Mean Corpuscular Volume 89.8 fL (80-100); Monocytes Absolute Auto 900 /uL (0-900); Monocytes Percent Auto 7.2 % (3-14); Neutrophils Absolute Auto 10000 /uL (1500-7000); Neutrophils Percent Auto 81.4 % (50-75); Platelet Count 228 X10^3/uL (150-400); Red Blood Cell Count 4.31 X10^6/uL (4.5-5.9); White Blood Cell Count 12.3 X10^3/uL (4.5-11.0)
[2018-10-19 07:03] LABS: Alanine Aminotransferase 40 IU/L (21-72); Albumin Globulin Ratio 0.9 (1.0-2.8); Alkaline Phosphatase 112 U/L (38-126); Aspartate Aminotransferase 19 IU/L (17-59); BUN Creatinine Ratio 16.9 (6-22); Bilirubin Total 0.5 mg/dL (0.2-1.3); Blood Urea Nitrogen 22 mg/dL (9-20); Calcium 8.1 mg/dL (8.4-10.2); Carbon Dioxide 27 mmol/L (22-32); Chloride 105 mmol/L (98-107); Estimated Glomerular Filt Rate 55.9 mL/min (>60); Globulin 3.5 g/dL (1.7-4.1); Glucose 160 mg/dL (80-110); HEMOLYSIS < 15 (0-50); Potassium 4.1 mmol/L (3.4-5.1); Sodium 139 mmol/L (137-145); Total Protein 6.5 g/dL (6.3-8.2)
[2018-10-19 07:21] LABS: Procalcitonin 3.98 ng/mL (<0.5)
[2018-10-19] MEDS: PHENYTOIN ORAL SUSP 125 MG/5 ML 100 MG PO ×3 (07:51→21:19)
[2018-10-19] MEDS: CHOLECALCIFEROL (VITAMIN D3) 1,000 UNIT TABLET 2000 UNIT PO (07:52)
[2018-10-19] MEDS: LOSARTAN 50 MG TABLET 100 MG PO (07:52)
[2018-10-19] MEDS: ASPIRIN 81 MG TAB PO (07:52)
[2018-10-19] MEDS: CLOPIDOGREL 75 MG TABLET PO (07:53)
[2018-10-19] MEDS: PARoxetine 20 MG TABLET 40 MG PO (07:53)
[2018-10-19] MEDS: METOPROLOL IR 25 MG TABLET PO ×2 (07:53→21:19)
[2018-10-19] MEDS: SENNOSIDES 8.6 MG TABLET 17.2 MG PO ×2 (07:55→21:19)
[2018-10-19] MEDS: DOCUSATE ORAL LIQUID 100 MG/10 ML UDC 200 MG PO (07:56)
[2018-10-19] MEDS: ISOSORBIDE MONONITRATE 20 MG TABLET PO ×3 (08:01→17:54)
[2018-10-19] MEDS: INSULIN GLARGINE 100 UNIT/ML 3ML PEN 26 UNIT SUBCUT (08:49)
[2018-10-19] MEDS: SODIUM CHLORIDE 0.9% 1,000 ML 75 ML IV (10:09)
--- NOTE | 2018-10-19 10:30 | PC.NURSE ---
Addendum entered by Estefany Adams R.N. 10/19/18 14:51: GI - speech in at lunch and pt was able to feed self, discussed some earlier coughing, none noted after this am and per Rosa M will continue with dysphagia and nectar thick. Original Note: AM NOTE - awake, no verbal response this am, noted at report this am that pt has leakage from ivf l arm, onto bedding, hand is wet, iv not patent and removed, contacted re ivf and abx and then Rabia Adams called for midline, later am placed midline lue, pt incont urine and soft stool, pericare performed barrier cream to groin, pink w/o breakdown, has small opening posterior scrotal area, barrier cream applied and pt repositioned, up right for breakfast, did cough after nectar thick and replaced with honey thick, able tootie cereal, 1:1 feeding by international nurse, does pocket and needs to take small sips to clear, fine crackles mid lobes, ra 97%.
[2018-10-19] MEDS: VANCOMYCIN 1,000 MG/200 ML FROZ.PIGGY 200 MG IV (11:00)
--- NOTE | 2018-10-19 11:22 | PM.PN.1 ---
Subjective Date Patient Seen: 10/19/18 Interval history: Vish Marks is a 63-year-old male with a past medical history significant for CAD, previous CVA with residual deficit of dysphagia/aphasia and right hemiparesis, hypertension, hyperlipidemia, diabetes mellitus type 2, insulin using, atrial fibrillation, GERD, BPH, RLS, and depression who presented via EMS for hypoxemia and fever after vomiting and probable aspiration event. The patient is resting in bed comfortably. 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 He answers questions in yes and no, therefore, it is difficult to assess his cognitive understanding of what is happening in regard to his care. He continues to be sensitive and at times for no apparent reason will yell when answering a question. He has no complaints and denies headache, chest pain, shortness of breath abdominal pain, nausea, fever, chills, dysuria, diarrhea or constipation. He is voiding (incontinent) and eliminating without difficulty. He is wheel chair and bed-bound. Exam Vital Signs (past 8 hours): - 10/19/18 06:20 10/19/18 08:00 10/19/18 10:17 Temperature 97.4 F L 98.1 F Pulse Rate 61 62 Respiratory Rate 16 16 Blood Pressure 123/68 160/85 H Pulse Oximetry 96 98 96 Fraction of Inspired Oxygen 21 Oxygen Delivery Method Room Air Oxygen Flow Rate 0 Narrative Exam Narrative: General: Middle-aged gentleman lying in bed and in no acute distress, appears older than stated age and chronically ill, well-developed, well-nourished, previous stroke with cognitive impairment/dementia, simple speech and answers questions with yes and no only. HEENT: Normocephalic, atraumatic. External ears without defect. Pupils equal, round, and reactive to light. Anicteric sclerae, moist conjunctivae, and no lid lag. Dry flaky skin, acne, blue nevi right cheek. Neck: Supple with full range of motion. No lymphadenopathy or thyromegaly. Cardiovascular: Regular rate and rhythm without murmurs, rubs, or gallops appreciated. Pulmonary: Diminished throughout but appears to be clear to auscultation bilaterally. No crackles or wheeze. Normal respiratory effort with no use of accessory muscles. Abdomen: Soft, bowel sounds present, non-tender, non-distended. No hepatosplenomegaly or masses appreciated. Extremities: No clubbing, cyanosis, or edema. Skin: Normal temperature, turgor, and texture; no rash, ulcers, or subcutaneous nodules appreciated. Neurological: Cranial nerves grossly intact. 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 Objective Labs Result Diagrams: 10/19/18 06:25 10/19/18 06:25 Labs: Laboratory Results - last 24 hr 10/19/18 10/19/18 10/19/18 06:25 06:25 06:25 WBC 12.3 H RBC 4.31 L Hgb 12.8 L Hct 38.7 L MCV 89.8 MCH 29.8 MCHC 33.2 RDW 14.0 Plt Count 228 Neut % (Auto) 81.4 H Lymph % (Auto) 6.9 L [place] % (Auto) 7.2 Eos % (Auto) 3.9 Baso % (Auto) 0.6 Neut # (Auto) 66109 H Lymph # (Auto) 900 L [place] # (Auto) 900 Eos # (Auto) 500 H Baso # (Auto) 100 Sodium 139 Potassium 4.1 Chloride 105 Carbon Dioxide 27 BUN 22 H Creatinine 1.30 H Estimated GFR 55.9 L BUN/Creatinine Ratio 16.9 Glucose 160 H Calcium 8.1 L Total Bilirubin 0.5 AST 19 ALT 40 Alkaline Phosphatase 112 Total Protein 6.5 Albumin 3.0 L Globulin 3.5 Albumin/Globulin Ratio 0.9 L Procalcitonin 3.98 H Assessment & Plan Assessment & Plan narrative: Vish Marks is a 63-year-old male with a past medical history significant for CAD, previous CVA with residual deficit of dysphagia/aphasia and right hemiparesis, hypertension, hyperlipidemia, diabetes mellitus type 2, insulin using, atrial fibrillation, GERD, BPH, RLS, and depression who presented via EMS for hypoxemia and fever after vomiting and probable aspiration event. 1. Acute sepsis, present on admission. Resolved. -Meets sepsis criteria: Temp 101.3 F, HR 106, RR 32, WBC 15.0, SpO2 87% with suspected source of infection aspiration. -Early goal-directed therapy med including IV fluid resuscitation and broad-spectrum antibiotics. -Lactic acid initially elevated at 3.2. Continue to trend until under 2.0. 2. Acute hypoxemic respiratory failure, secondary to aspiration, present on admission. Resolved. -Patient presented with hypoxemia with SpO2 87% on room air with fever and hypoxemia with history of vomiting earlier that day with probable aspiration event. -Consulted respiratory therapy for evaluation and treatment. Continue supplemental oxygen as needed to keep oxygen saturations 88% and above. Off oxygen. Continue duonebs every 6 hours as needed. 3. Acute aspiration vs HCAP pneumonia, present on admission. Resolving. -Patient resides at a long-term care facility. He presented with fever and hypoxemia with history of vomiting earlier that day with probable aspiration event. There is question to whether the patient had a seizure or not as his Dilantin level is subtherapeutic. Also nursing has noted that patient chews his pills, therefore, his long-acting pills were switched to short-acting including his Dilantin which may be why his level is low and is now being given in a suspension. -Chest x-ray demonstrated patchy airspace disease more prominent on the left. -Continue aspiration precautions with head of the bed 30? in above at all times. -Initial WBC 15.0 and PCT < 0.05 and peaked at WBC 18.3 and PCT 6.34. Now trending down and will continue to trend until normal. -Discontinued vancomycin with dosing per pharmacist and Levaquin 750 mg daily. Continue Zosyn 3.375 g every 8 hours for broad-spectrum gram-positive (including MRSA) and gram-negative bacteria, as well as, anaerobes coverage. -Continue speech therapy evaluation and treatment. Continue on a dysphagia mechanical soft and nectar thick diet by speech therapy. 4. History of seizures, chronic, present on admission. Stable. -Seizures may be secondary to previous CVA. -Continue Dilantin suspension 100 mg 3 times daily. -Dilantin level subtherapeutic at 6.5 and precipitating aspiration event may have been a seizure? Plan to repeat Dilantin level tomorrow (half life 2-3 days). -Continue seizure precautions. 5. Diabetes mellitus type 2, insulin using, chronic, present on admission. Stable. -Hemoglobin A1c 8.8% on 07/2018. -Continue Lantus 26 units daily and nutritional insulin. -Continue [facility] blood glucose checks and low-dose correctional scale insulin. -Continue dysphagia mechanical soft with nectar thick liquids. Continue speech therapy evaluation and treatment 6. 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 Stable. -He appears to have cognitive impairment vs dementia, potentially of vascular nature, given history of CVA. -Continue on a dysphagia mechanical soft and nectar thick diet by speech therapy. Continue speech therapy evaluation and treatment. -Continue aspiration and seizure precautions. -Continue aspirin 81 mg daily and Plavix 75 mg daily. 7. Paroxysmal atrial fibrillation, chronic, present on admission. Stable. -Currently in SR. -Continue Diltiazem CD 120 mg daily and metoprolol tartrate 25 mg twice daily. -Continue aspirin 81 mg daily and clopidogrel 75 mg daily. 8. Hypertension, chronic, present on admission. Stable. -Continue losartan, diltiazem, and metoprolol. BP well controlled. 9. CAD, chronic, present on admission. Stable. -No chest pain or active disease. -Continue aspirin, Plavix, losartan, metoprolol, diltiazem, isosorbide mononitrate, and atorvastatin. 10. BPH, chronic, present on admission. Stable. -Continue flomax 0.4 mg and finasteride 5 mg daily at bedtime. 11. Chronic constipation, present on admission. Stable -Continue colace 100 mg twice daily and Senna 8.6 mg twice daily. 12. Depression with insomnia, present on admission. Stable. -Continue Remeron, paroxetine and melatonin. Disposition: Patient likely to discharge to assisted living facility tomorrow. Quality VTE Deep Vein Thrombosis/Pulmonary Embolism Present on Admission: No
[2018-10-19] MEDS: INSULIN ASPART 100 UNIT/ML INSULN PEN SUBCUT ×2 (12:35→17:58)
--- NOTE | 2018-10-19 12:46 | CM.DPC ---
DCP Cont: Discussed patient at team rounds this morning. He could potentially be discharged tomorrow or the next day. Patient is here for aspiration pneumonia. Went ahead and called Ailyn Hyman in admissions at [facility]. She stated that she will be here in the morning to evaluate him here at hospital. Stated that she will try to be here around 9:00 before team meeting. P: DCP to continue to follow. Plan is for [facility] within next day or two, as long as medically stable and [facility] can accept. Gali Schwartz RN/Dramatic Art Teacher
--- NOTE | 2018-10-19 17:33 | ST.IPDYTX ---
Care Team Visit Care Team Role Provider Type Estefany Yoon MD Family Provider Physician Primary Care Provider Specialty: Medical Address: [address] [address], [place], [address] Email: Dmitriy Morton DO Emergency Provider Physician Specialty: Emergency Medicine Address: [address] [place] [address], [id number] Email: Inderjit Jackson MD Admit Provider Physician Attending Provider Specialty: Medical Address: [address] [place] [address], [id number] Email: ELECTRONICS COMPUTER MECHANIC Dysphagia Treatment ELECTRONICS COMPUTER MECHANIC Clinical Instructor Line Start: 10/18/18 12:46 Freq: Status: Active Protocol: Document 10/18/18 14:47 LNK (Rec: 10/18/18 14:47 [email or web address] [id number]) Clinical Instructor Signature Clinical Instructor Clinical Instructor Yes: Susie Lozano, [facility] -ELECTRONICS COMPUTER MECHANIC ELECTRONICS COMPUTER MECHANIC Dysphagia Treatment Start: 10/19/18 17:15 Freq: Status: Active Protocol: Document 10/19/18 17:16 WAYNE (Rec: 10/19/18 17:33 WAYNE [id number]) Dysphagia Treatment Session Time Visit Start Time 12:45 Visit Stop Time 13:05 Total Visit Minutes 20 Setting Assessment Location Acute Care Visit Type Note Type Treatment Note Next Note Type Next Note Type Treatment Note Patient Information Identification Type Name ID Card Subjective Observations Pt was awake in bed watching TV. He had recently finished lunch, which he consumed without s/sx of aspiration, per CAMOUFLAGE ASSEMBLER report. Nsg reported observing the pt coughing significantly with NTL earlier in the day. She removed the liquid at that time. The pt did consume NTL with his lunch without apparent difficulty. Nsg also reported the pt chewed all of his medications, many of which were time- released, and therefore requiring changing to liquid or [id number] pills. The pt returned the clinician' s greeting when she entered the room. He participated in minimal conversation, recalling 2 items he ate for lunch and, when asked what he was watching on TV, stating I 'm not sure. Treatment Liquids Trialed [place] Honey Pharyngeal Strategies Sitting Upright (90 deg) Treatment Activities The pt was agreeable to limited trials of nectar- and honey-thick apple juice only. He consumed 2 moderate sized sips of both from cup with munching-type oral prep prior to swallow with all trials. This delayed swallow trigger but, once initiated, appeared to be well coordinated. Hyolaryngeal elevation was WFL per palpation, performed with pt's consent. No s/sx of aspiration were observed. The pt refused further trials. Assessment Patient Response to Treatment Good Rehab Potential Fair Assessment of Improvement The pt safely tolerated limited amounts of both NTL and HTL midday, exhibiting munching motions with all trials. This may reflect reduced cognitive awareness of bolus type or may be a habitual oral motor response. The pt reportedly did not tolerate NTL this morning, which could be indicative of time of day impacts on swallow function. Will continue current diet with NTL for now and see the pt again in the morning for ongoing assessment . Diet Recommendations Recommendations Continue Current Diet Liquids Order [place] Diet Order Dysphagia Mechanical Medication Recommendations As Tolerated Comments Supervision with setup assistance as needed. Pt able to self-feed. Aspiration Precautions Recommended Precautions Upright at 90 Degrees Small Bites/Sips Treatment Plan Placement Recommendation after Discharge Electric Motor Analyst Care Facility Appropriate for Continued Therapy Yes Therapy Recommendations Follow-up with pt to monitor if diet recommendations continue to be efficient for the pt. Dysphagia Goals Pt will tolerate current diet while still maintaining nutrition and hydration needs and not show any overt s/sx of aspiration.
[2018-10-19] MEDS: LORATADINE 10 MG TABLET PO (17:54)
[2018-10-19] MEDS: FINASTERIDE 5 MG TABLET PO (17:54)
[2018-10-19] MEDS: MIRTAZAPINE 15 MG TABLET 7.5 MG PO (17:54)
[2018-10-19] MEDS: TAMSULOSIN 0.4 MG CAPSULE PO (17:55)
[2018-10-19] MEDS: ATORVASTATIN 20 MG TABLET 40 MG PO (21:16)
[2018-10-19] MEDS: MELATONIN 3 MG TABLET 6 MG PO (21:19)
--- NOTE | 2018-10-19 22:42 | PC.NURSE ---
Addendum entered by Huma Daugherty R.N. 10/19/18 22:57: Telemetry in place with NSR x 2. Original Note: Pt with right arm flaccid and hand contracted, no movement to right foot/leg. Wheelchair baseline, bed bound currently. Alert, flat affect with mild delay, able to answer no or a thumbs up for yes. Meds crushed in carrier of pudding or applesauce. CBG 217 and 190. dilantin in oral susp. Bottom and posterior scrotum erythema and excoriation, barrier cream. Inc B/B. BT+, denies nausea. 97%RA, LS clear denies SOB. Seizure pads in place, Q-2 turns, dysphagia diet and nectar thick fluids. ARIN midline NS @ 75. Bed alarm on.
[2018-10-20] VITALS (10 sets, daily range): BP systolic 130–174; BP diastolic 76–87; PULSE 60–80; RESP 16–18; TEMP 36.7–37.7; O2SAT 95–98
--- NOTE | 2018-10-20 00:06 | PC.NURSE ---
2300- Pt continues to be treated for pneumonia w/ abx. Remains on cont SpO2 w/ stable sats on RA, lungs are clear. Q2hr turns & brief changes taking place as pt is incontinent of urine & stool; oriented to self only w/ yes or no answers. On tele reading SR; dysphasia diet w/ mech soft/nectar thick. HOB>30 degrees; seizure pads in place. New Midline placed into L upper arm, good flush & blood return noted. NS running as ordered 0000- BP on the higher side, scheduled Diltiazem given per orders. Meds should be crushed in applesauce for this pt. 0400- Pt cleaned and turned. VERY agitated yelling and screaming at staff. Noted bruising on pt's L arm from him swinging and hitting the bed, see flowsheet for details. Unable to check pt's BG level because of agitation.
[2018-10-20] MEDS: SODIUM CHLORIDE 0.9% 1,000 ML 75 ML IV ×2 (01:40→14:02)
[2018-10-20] MEDS: PIPERACILLIN-TAZO 3.375 GM/50 ML FROZ.PIGGY IV ×2 (02:31→10:10)
[2018-10-20] MEDS: ISOSORBIDE MONONITRATE 20 MG TABLET PO ×3 (08:25→18:03)
[2018-10-20] MEDS: dilTIAZem 30 MG TABLET PO ×2 (08:26→13:55)
[2018-10-20] MEDS: INSULIN GLARGINE 100 UNIT/ML 3ML PEN 26 UNIT SUBCUT (08:30)
[2018-10-20] MEDS: LOSARTAN 50 MG TABLET 100 MG PO (08:33)
[2018-10-20] MEDS: PARoxetine 20 MG TABLET 40 MG PO (08:34)
[2018-10-20] MEDS: CLOPIDOGREL 75 MG TABLET PO (08:34)
[2018-10-20] MEDS: ASPIRIN 81 MG TAB PO (08:34)
[2018-10-20] MEDS: METOPROLOL IR 25 MG TABLET PO ×2 (08:34→20:20)
[2018-10-20] MEDS: PHENYTOIN ORAL SUSP 125 MG/5 ML 100 MG PO ×2 (08:35→13:55)
--- NOTE | 2018-10-20 08:47 | P.PN_ITS ---
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 The patient is resting in bed comfortably. He is doing well and his pneumonia is being treated and resolving. He is on dysphagia mechanical soft diet with nectar thick liquids. His long-acting medications have been converted to short- acting as patient has been chewing his pills. He has no complaints. He denies headache, chest pain, shortness of breath, abdominal pain, nausea, vomiting, fever, chills, dysuria, diarrhea or constipation. 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 He answers questions in yes and no, therefore, it is difficult to assess his cognitive understanding of what is happening in regard to his care. He is voiding (incontinent) and eliminating without difficulty. He is wheel chair and bed-bound. Patient is at his baseline and PT has signed off. Exam Vital Signs (past 8 hours): - 10/20/18 06:19 10/20/18 08:00 Temperature 98.2 F Pulse Rate 68 64 Respiratory Rate 18 16 Blood Pressure 130/81 174/85 H Pulse Oximetry 97 98 Fraction of Inspired Oxygen 21 Oxygen Delivery Method Room Air Oxygen Flow Rate 0 Narrative Exam Narrative: General: Middle-aged gentleman lying in bed and in no acute distress, appears older than stated age and chronically ill, well-developed, well-nourished, previous stroke with cognitive impairment/dementia, simple speech and answers questions with yes and no only. HEENT: Normocephalic, atraumatic. External ears without defect. Pupils equal, round, and reactive to light. Anicteric sclerae, moist conjunctivae, and no lid lag. Dry flaky skin, acne, blue nevi right cheek. Neck: Supple with full range of motion. No lymphadenopathy or thyromegaly. Cardiovascular: Regular rate and rhythm without murmurs, rubs, or gallops appreciated. Pulmonary: Diminished throughout but appears to be clear to auscultation bilate rally. No crackles or wheeze. Normal respiratory effort with no use of accessory muscles. Abdomen: Soft, bowel sounds present, non-tender, non-distended. No hepatosplenomegaly or masses appreciated. Extremities: No clubbing, cyanosis, or edema. Skin: Normal temperature, turgor, and texture; no rash, ulcers, or subcutaneous nodules appreciated. Neurological: Cranial nerves grossly intact. 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 Objective Labs Result Diagrams: 10/20/18 08:45 10/20/18 08:45 Assessment & Plan Assessment & Plan narrative: Vish Marks is a 63-year-old male with a past medical history significant for CAD, previous CVA with residual deficit of dysphagia/aphasia and right hem iparesis, hypertension, hyperlipidemia, diabetes mellitus type 2, insulin using, atrial fibrillation, GERD, BPH, RLS, and depression who presented via EMS for hypoxemia and fever after vomiting and probable aspiration event. 1. Acute sepsis, present on admission. Resolved. -Meets sepsis criteria: Temp 101.3 F, HR 106, RR 32, WBC 15.0, SpO2 87% with suspected source of infection aspiration. -Early goal-directed therapy med including IV fluid resuscitation and broad- spectrum antibiotics. -Lactic acid initially elevated at 3.2. Continue to trend until under 2.0. 2. Acute hypoxemic respiratory failure, secondary to aspiration, present on admission. Resolved. -Patient presented with hypoxemia with SpO2 87% on room air with fever and hypoxemia with history of vomiting earlier that day with probable aspiration event. -Consulted respiratory therapy for evaluation and treatment. Continue supplemental oxygen as needed to keep oxygen saturations 88% and above. Off oxygen. Continue duonebs every 6 hours as needed. 3. Acute aspiration vs HCAP pneumonia, present on admission. Resolving. -Patient resides at a long-term care facility. He presented with fever and hypoxemia with history of vomiting earlier that day with probable aspiration event. There is question to whether the patient had a seizure or not as his Dilantin level is subtherapeutic. Also nursing has noted that patient chews his pills, therefore, his long-acting pills were switched to short-acting including his Dilantin which may be why his level is low and is now being given in a suspension. -Chest x-ray demonstrated patchy airspace disease more prominent on the left. -Continue aspiration precautions with head of the bed 30? in above at all times. -Initial WBC 15.0 and PCT < 0.05 and peaked at WBC 18.3 and PCT 6.34. Now trending down and will continue to trend until normal. -Discontinued vancomycin with dosing per pharmacist and Levaquin 750 mg daily. Continue Zosyn 3.375 g every 8 hours for broad-spectrum gram-positive (including MRSA) and gram-negative bacteria, as well as, anaerobes coverage. -Continue speech therapy evaluation and treatment. Continue on a dysphagia mechanical soft and nectar thick diet by speech therapy. 4. Acute kidney injury, not present on admission. Resolving. -Likely due to combination of vancomycin and Zosyn which are nephrotoxin and vancomycin trough was high. Also may be due to delayed kidney injury from sepsis. -Initial creatinine 0.6. Creatinine increased to 1.3 and has been trending down. -Avoid nephrotoxic agents. 5. History of seizures, chronic, present on admission. Stable. -Seizures may be secondary to previous CVA. -Initial dilantin level subtherapeutic at 6.5 and precipitating aspiration event may have been a seizure? Repeat Dilantin level 8.5. Increased Dilantin suspension from 100 mg to 125 mg 3 times daily. -Continue seizure precautions. 6. Diabetes mellitus type 2, insulin using, chronic, present on admission. Stable. -Hemoglobin A1c 8.8% on 07/2018. -Continue Lantus 26 units daily and nutritional insulin. -Continue [facility] blood glucose checks and low-dose correctional scale insulin. -Continue dysphagia mechanical soft with nectar thick liquids. Continue speech therapy evaluation and treatment 7. 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 Stable. -He appears to have cognitive impairment vs dementia, potentially of vascular nature, given history of CVA. -Continue on a dysphagia mechanical soft and nectar thick diet by speech therapy. Continue speech therapy evaluation and treatment. -Continue aspiration and seizure precautions. -Continue aspirin 81 mg daily and Plavix 75 mg daily. 8. Paroxysmal atrial fibrillation, chronic, present on admission. Stable. -Currently in SR. -Continue Diltiazem CD 120 mg daily and metoprolol tartrate 25 mg twice daily. -Continue aspirin 81 mg daily and clopidogrel 75 mg daily. 9. Hypertension, chronic, present on admission. Stable. -Continue losartan, diltiazem, and metoprolol. BP well controlled. 10. CAD, chronic, present on admission. Stable. -No chest pain or active disease. -Continue aspirin, Plavix, losartan, metoprolol, diltiazem, isosorbide mononitrate, and atorvastatin. 11. BPH, chronic, present on admission. Stable. -Continue flomax 0.4 mg and finasteride 5 mg daily at bedtime. 12. Chronic constipation, present on admission. Stable -Continue colace 100 mg twice daily and Senna 8.6 mg twice daily. 13. Depression with insomnia, present on admission. Stable. -Continue Remeron, paroxetine and melatonin. Disposition: I know the patient very well and he is at his baseline physical ability which is bed and wheelchair-bound. Physical therapy has evaluated and signed off as they also agree he is at his baseline. Patient will likely discharge to assisted living facility tomorrow to finish course of oral antibiotics. Quality VTE Deep Vein Thrombosis/Pulmonary Embolism Present on Admission: No
[2018-10-20 08:54] LABS: Add Manual Diff / Slide Review NO; Basophils Absolute Auto 0 /uL (0-100); Basophils Percent Auto 0.4 % (0-2); Eosinophils Absolute Auto 300 /uL (0-450); Eosinophils Percent Auto 2.5 % (2-4); Hematocrit 41.1 % (41-53); Hemoglobin 13.7 g/dL (13.5-17.5); Lymphocytes Absolute Auto 800 /uL (1100-4500); Lymphocytes Percent Auto 7.9 % (25-40); Mean Corpuscular HGB Conc 33.3 % (30-36); Mean Corpuscular Hemoglobin 29.4 PG (26-34); Mean Corpuscular Volume 88.4 fL (80-100); Monocytes Absolute Auto 1000 /uL (0-900); Monocytes Percent Auto 9.1 % (3-14); Neutrophils Absolute Auto 8400 /uL (1500-7000); Neutrophils Percent Auto 80.1 % (50-75); Platelet Count 250 X10^3/uL (150-400); Red Blood Cell Count 4.65 X10^6/uL (4.5-5.9); Red Cell Distribution Width 13.4 % (11.6-14.8); White Blood Cell Count 10.5 X10^3/uL (4.5-11.0)
[2018-10-20 09:11] LABS: BUN Creatinine Ratio 13.3 (6-22); Blood Urea Nitrogen 16 mg/dL (9-20); Calcium 8.4 mg/dL (8.4-10.2); Carbon Dioxide 28 mmol/L (22-32); Chloride 104 mmol/L (98-107); Estimated Glomerular Filt Rate > 60.0 mL/min (>60); Glucose 154 mg/dL (80-110); HEMOLYSIS < 15 (0-50); Magnesium 1.7 mg/dL (1.6-2.3); Phenytoin / Dilantin 8.5 ug/mL (10-20); Potassium 3.7 mmol/L (3.4-5.1); Sodium 139 mmol/L (137-145)
[2018-10-20 09:27] LABS: Procalcitonin 2.12 ng/mL (<0.5)
[2018-10-20] MEDS: SENNOSIDES 8.6 MG TABLET 17.2 MG PO ×2 (13:12→20:19)
[2018-10-20] MEDS: CHOLECALCIFEROL (VITAMIN D3) 1,000 UNIT TABLET 2000 UNIT PO (13:12)
[2018-10-20] MEDS: DOCUSATE ORAL LIQUID 100 MG/10 ML UDC 200 MG PO (13:13)
[2018-10-20] MEDS: FINASTERIDE 5 MG TABLET PO (18:03)
[2018-10-20] MEDS: MIRTAZAPINE 15 MG TABLET 7.5 MG PO (18:04)
[2018-10-20] MEDS: LORATADINE 10 MG TABLET PO (18:04)
[2018-10-20] MEDS: TAMSULOSIN 0.4 MG CAPSULE PO (18:05)
[2018-10-20] MEDS: INSULIN ASPART 100 UNIT/ML INSULN PEN SUBCUT (18:05)
[2018-10-20] MEDS: PHENYTOIN ORAL SUSP 125 MG/5 ML PO (20:18)
[2018-10-20] MEDS: AMOXICILLIN/CLAV 875/125 MG 1 TAB PO (20:19)
[2018-10-20] MEDS: ATORVASTATIN 20 MG TABLET 40 MG PO (20:19)
[2018-10-20] MEDS: MELATONIN 3 MG TABLET 6 MG PO (20:20)
[2018-10-21] VITALS (8 sets, daily range): BP systolic 140–158; BP diastolic 73–85; PULSE 68–80; RESP 16–18; TEMP 36.8; O2SAT 93–96
[2018-10-21] MEDS: dilTIAZem 30 MG TABLET PO ×3 (00:46→12:36)
[2018-10-21] MEDS: SODIUM CHLORIDE 0.9% 1,000 ML 75 ML IV (04:07)
[2018-10-21] MEDS: ISOSORBIDE MONONITRATE 20 MG TABLET PO ×2 (05:51→12:36)
[2018-10-21 06:48] LABS: Procalcitonin 1.35 ng/mL (<0.5)
[2018-10-21] MEDS: PARoxetine 20 MG TABLET 40 MG PO (08:32)
[2018-10-21] MEDS: SENNOSIDES 8.6 MG TABLET 17.2 MG PO (08:32)
[2018-10-21] MEDS: ASPIRIN 81 MG TAB PO (08:33)
[2018-10-21] MEDS: CHOLECALCIFEROL (VITAMIN D3) 1,000 UNIT TABLET 2000 UNIT PO (08:33)
[2018-10-21] MEDS: AMOXICILLIN/CLAV 875/125 MG 1 TAB PO (08:33)
[2018-10-21] MEDS: CLOPIDOGREL 75 MG TABLET PO (08:34)
[2018-10-21] MEDS: DOCUSATE ORAL LIQUID 100 MG/10 ML UDC 200 MG PO (08:34)
[2018-10-21] MEDS: PHENYTOIN ORAL SUSP 125 MG/5 ML PO (08:38)
[2018-10-21] MEDS: METOPROLOL IR 25 MG TABLET PO (08:44)
[2018-10-21] MEDS: LOSARTAN 50 MG TABLET 100 MG PO (08:44)
--- NOTE | 2018-10-21 08:45 | CM.DPC ---
Addendum entered by Mel Warner LPN 10/21/18 12:20: Spoke with Stephanie/[facility] and also with [facility]. All is now set for the 1400 transport and the facility will follow up re the considerations noted below. Addendum entered by Mel Warner LPN 10/21/18 11:52: Have spoken now with pt's brother and PITA Rivera and updated him on the plan for d/c today. He is working at in [employer], lives in [place]. He says to tell his brother that he will check in with him at the on his way home from work. Pt is updated, smiles and says good. Have now heard back yet from Ailyn so another vm is left. Orders, dc summary and scripts are faxed to the fax: [phone] and also efaxed to [facility]. Dr. Roman is recommending that the carrie team have a conversation going forward with Les re pt's overall goals of care and update directives accordingly. If pt's care needs become too much for the [facility]URSING HOME may wish to consider placing him in one of the [facility] snfs under his Medicaid. VM re same is left for [facility] and dc packet is also efaxed to [facility] to she can follow in her [facility] liaison role. [facility] is now set to pick pt up at 1400...am hoping to hear back from Ailyn soon. Addendum entered by Mel Warner LPN 10/21/18 10:34: Case discussed: Dr. Roman states she does plan to d/c pt back to [facility] today: no order in yet. Will follow and set up Ambulance transport at time of the d/c (after first discussion again with CHELSEY Robertson/[facility] Original Note: DCP: Late entry for yesterday: Did speak with CHELSEY Robertson after she came as planned to assess pt. She noted concerns re pt's ability to manage oral medications and though he appeared weaker. Dr. Roman was updated. Pt was changed from Iv antibiotics to oral yesterday and Dr. Roman stated she though pt should return to the NURSING HOME setting as he is at baseline. Further discussion with Ailyn continued in the afternoon with decision to accept pt back to the NURSING HOME setting. She states they can order a [employer] consult at their facility if needed and that this would likely be provided by one of the [facility] therapists. Will discuss case again today in Team Rounds: expectation is that pt will likely d/c today.
[2018-10-21] MEDS: ONDANSETRON 4 MG/2 ML INJ IV (09:38)
[2018-10-21] MEDS: INSULIN GLARGINE 100 UNIT/ML 3ML PEN 13 UNIT SUBCUT (10:43)
[2018-10-21] MEDS: BENZOCAINE/MENTHOL 1 LOZ PKT 1 EACH PO (10:45)
--- NOTE | 2018-10-21 11:03 | P.DS_ITS ---
History of Present Illness Date Patient Seen: 10/17/18 Chief complaint: Vomiting Narrative: Written by Dr. Jackson: This is a 63-year-old male, resident of [facility], who has post stroke dysphagia/aphasia and recurrent aspiration pneumonia. He presented yesterday with sudden onset of fever up to 101.3 and hypoxia into the 80s. He had vomited earlier in the day. This is a very close copy of what he went through a month ago when he was admitted for aspiration pneumonia and treated with Zosyn. It is difficult to get any additional history from him as he has a very flat affect, speaks minimally and responds best to yes/no questions. The chest x-ray was described as suggesting a left lung pneumonia but I am unable to see it on the PACS system to confirm that myself. Interestingly he had no complaints at the facility and was sent over at staff request due to the hypoxia and fever. His lactate is 3.2 but his procalcitonin is less than 0.05 with a white count of 15 and a left shift. Discharge Providers Date of admission: 10/17/18 01:52 Discharge Date: 10/21/18 Primary care physician: Estefany Yoon MD Consults: 10/17/18 02:50 Consult to Dietitian, Adult Routine Comment: Reason For Exam: low weight, aspiration pneumonia 10/17/18 17:49 Consult to Respiratory Therapy Evaluate & Treat Comment: Physician Instructions: Evaluate and treat 10/18/18 10:03 Consult to Occupational Therapy Evaluate & Treat Comment: Physician Instructions: Evaluate and treat Consult to Physical Therapy Evaluate & Treat Comment: Physician Instructions: Evaluate and Treat Consult to Speech Therapy Evaluate & Treat Comment: Physician Instructions: Evaluate and treat Discharge provider: Meghna Roman DO Summary Discharge Diagnosis: 1. Acute sepsis, present on admission. Resolved. 2. Acute hypoxemic respiratory failure, secondary to aspiration, present on admission. Resolved. 3. Acute aspiration vs HCAP pneumonia, present on admission. Resolving. 4. Acute kidney injury, not present on admission. Resolved. 5. History of seizures, chronic, present on admission. Stable. 6. Diabetes mellitus type 2, insulin using, chronic, present on admission. Stable. 7. 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 Stable. 8. Paroxysmal atrial fibrillation, chronic, present on admission. Stable. 9. Hypertension, chronic, present on admission. Stable. 10. CAD, chronic, present on admission. Stable. 11. BPH, chronic, present on admission. Stable. 12. Chronic constipation, present on admission. Stable 13. Depression with insomnia, present on admission. Stable. Hospital Course: Vish Marks is a 63-year-old male with a past medical history significant for CAD, previous CVA with residual deficit of dysphagia/aphasia and right hemiparesis, hypertension, hyperlipidemia, diabetes mellitus type 2, insulin using, atrial fibrillation, GERD, BPH, RLS, and depression who presented via EMS for hypoxemia and fever after vomiting and probable aspiration event. 1. Acute sepsis, present on admission. Resolved. -Meets sepsis criteria: Temp 101.3 F, HR 106, RR 32, WBC 15.0, SpO2 87% with suspected source of infection aspiration. -Early goal-directed therapy med including IV fluid resuscitation and broad- spectrum antibiotics. -Lactic acid initially elevated at 3.2. Continue to trend until under 2.0. 2. Acute hypoxemic respiratory failure, secondary to aspiration, present on admission. Resolved. -Patient presented with hypoxemia with SpO2 87% on room air with fever and hypoxemia with history of vomiting earlier that day with probable aspiration event. -Consulted respiratory therapy for evaluation and treatment. Continue supplemental oxygen as needed to keep oxygen saturations 88% and above. Off oxygen. Ordered duonebs every 6 hours as needed which patient did not need. 3. Acute aspiration vs HCAP pneumonia, present on admission. Resolving. -Patient resides at a long-term care facility. He presented with fever and hypoxemia with history of vomiting earlier that day with probable aspiration event. There is question to whether the patient had a seizure or not as his Dilantin level is subtherapeutic. Also nursing has noted that patient chews his pills, therefore, his long-acting pills were switched to short-acting including his Dilantin which may be why his level is low and is now being given in a suspension. -Chest x-ray demonstrated patchy airspace disease more prominent on the left. -Continued aspiration precautions with head of the bed 30? in above at all times and seizure precautions. -Initial WBC 15.0 and PCT < 0.05 and peaked at WBC 18.3 and PCT 6.34. Now trending down and will continue to trend until normal. -Discontinued vancomycin with dosing per pharmacist and Levaquin 750 mg daily. Continue Zosyn 3.375 g every 8 hours for broad-spectrum gram-positive (including MRSA) and gram-negative bacteria, as well as, anaerobes coverage. -Continued speech therapy evaluation and treatment. Continued on a dysphagia mechanical soft and nectar thick diet by speech therapy. 4. Acute kidney injury, not present on admission. Resolved. -Likely due to combination of vancomycin and Zosyn which are nephrotoxin and vancomycin trough was high. Also may be due to delayed kidney injury from sepsis. -Initial creatinine 0.6. Creatinine increased to 1.3 and trended down. -Avoided nephrotoxic agents. 5. History of seizures, chronic, present on admission. Stable. -Seizures may be secondary to previous CVA. -Initial dilantin level subtherapeutic at 6.5 and precipitating aspiration event may have been a seizure? Switch patient's Dilantin to suspension as patient was chewing pills and there is some question question regarding amount of absorption. Repeat Dilantin level 8.5. Increased Dilantin suspension from 100 mg to 125 mg 3 times daily. Monitor in 3-5 days and periodically going forward and adjust as needed. -Continued seizure precautions. 6. Diabetes mellitus type 2, insulin using, chronic, present on admission. Stable. -Hemoglobin A1c 8.8% on 07/2018. -Continued Lantus 26 units daily and nutritional insulin. -Continued [facility] blood glucose checks and low-dose correctional scale insulin. -Continued dysphagia mechanical soft with nectar thick liquids. Continue speech therapy evaluation and treatment 7. 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 Stable. -He appears to have cognitive impairment vs dementia, potentially of vascular nature, given history of CVA. -Continued on a dysphagia mechanical soft and nectar thick diet by speech th ryan. Continue speech therapy evaluation and treatment. -Continued aspiration and seizure precautions as above. -Continued aspirin 81 mg daily and Plavix 75 mg daily. 8. Paroxysmal atrial fibrillation, chronic, present on admission. Stable. -Currently in SR. -Continued Diltiazem but switched from CD 120 mg daily to short acting 30 mg every 6 hours (patient chewing pills) and metoprolol tartrate 25 mg twice daily. -Continued aspirin 81 mg daily and clopidogrel 75 mg daily. 9. Hypertension, chronic, present on admission. Stable. -Continued losartan, diltiazem, and metoprolol. BP well controlled. 10. CAD, chronic, present on admission. Stable. -No chest pain or active disease. -Continued aspirin, Plavix, losartan, metoprolol, diltiazem, isosorbide mononitrate, and atorvastatin. 11. BPH, chronic, present on admission. Stable. -Continued flomax 0.4 mg and finasteride 5 mg daily at bedtime. 12. Chronic constipation, present on admission. Stable -Continued colace 100 mg twice daily and Senna 8.6 mg twice daily. 13. Depression with insomnia, present on admission. Stable. -Continued Remeron, paroxetine and melatonin. Status at Discharge Functional status at discharge: bed bound Overall status at discharge: patient is back to baseline Exam Vital Signs (past 8 hours): - 10/21/18 04:00 10/21/18 05:51 10/21/18 07:00 Temperature Pulse Rate 71 71 Respiratory Rate Blood Pressure 158/73 H 158/73 H Pulse Oximetry 95 95 10/21/18 08:00 Temperature 98.3 F Pulse Rate 68 Respiratory Rate 16 Blood Pressure 147/85 H Pulse Oximetry 96 Fraction of Inspired Oxygen 21 Oxygen Delivery Method Room Air Oxygen Flow Rate 0 Narrative Exam Narrative: General: Middle-aged gentleman lying in bed and in no acute distress, appears older than stated age and chronically ill, well-developed, well-nourished, previous stroke with cognitive impairment/dementia, simple speech and answers questions with yes and no only. HEENT: Normocephalic, atraumatic. External ears without defect. Pupils equal, round, and reactive to light. Anicteric sclerae, moist conjunctivae, and no lid lag. Dry flaky skin, acne, blue nevi right cheek. Neck: Supple with full range of motion. No lymphadenopathy or thyromegaly. Cardiovascular: Regular rate and rhythm without murmurs, rubs, or gallops appreciated. Pulmonary: Diminished throughout but appears to be clear to auscultation bilaterally. No crackles or wheeze. Normal respiratory effort with no use of accessory muscles. Abdomen: Soft, bowel sounds present, non-tender, non-distended. No hepatosplenomegaly or masses appreciated. Extremities: No clubbing, cyanosis, or edema. Skin: Normal temperature, turgor, and texture; no rash, ulcers, or subcutaneous nodules appreciated. Neurological: Cranial nerves grossly intact. 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 Objective Labs Result Diagrams: 10/20/18 08:45 10/20/18 08:45 Labs: Laboratory Results - last 24 hr 10/21/18 05:55 Procalcitonin 1.35 H Discharge Plan Discharge Plan Patient Disposition: Assisted Living Transfer to: [facility] Transportation: Facility vehicle Labs: Dilantin level in 3-5 days, monitor periodically to assure therapeutic The receiving facility has agreed to accept transfer and provide medical treatment.: Yes Discharge Med Rec/Prescriptions Prescriptions: New phenytoin [Dilantin-125] 125 mg/5 mL Suspension 125 mg PO TID Qty: 100 RF: 0 diltiazem HCl 30 mg Tablet 30 mg PO Q6HR Qty: 120 RF: 0 amoxicillin-pot clavulanate [Augmentin] 875-125 mg Tablet 1 tab PO BID Qty: 12 RF: 0 Continued metoprolol tartrate 25 mg Tablet 25 mg PO BID RF: 0 clopidogrel [Plavix] 75 mg Tablet 75 mg PO DAILY RF: 0 Lantus Solostar U-100 Insulin 100 unit/mL (3 mL) Insulin Pen 26 unit SUBCUT DAILY RF: 0 melatonin 3 mg Tablet 6 mg PO BEDTIME RF: 0 tamsulosin [Flomax] 0.4 mg Capsule 0.4 mg PO QPM RF: 0 finasteride 5 mg Tablet 5 mg PO QPM RF: 0 docusate sodium 100 mg Tablet 200 mg PO DAILY RF: 0 [GRABBER] 1 ea miscellaneous DIRECTED RF: 0 cetirizine 10 mg Tablet 10 mg PO QPM RF: 0 isosorbide mononitrate 60 mg Tablet Extended Release 24 Hr 60 mg PO DAILY RF: 0 atorvastatin 40 mg Tablet 40 mg PO QPM RF: 0 aspirin 81 mg Tablet,Chewable 81 mg PO DAILY RF: 0 mirtazapine 15 mg Tablet 7.5 mg PO QPM RF: 0 Humalog U-100 Insulin 100 unit/mL Solution 1 dose subcut TID RF: 0 paroxetine HCl 40 mg Tablet 40 mg PO DAILY RF: 0 cholecalciferol (vitamin D3) [Vitamin D3] 1,000 unit Tablet 2,000 unit PO DAILY RF: 0 Cane: Single Point Adjustable Cane 1 dev miscellaneous DIRECTED RF: 0 Glucose: Home Monitor miscellaneous DIRECTED RF: 0 Glucose: Test Strips miscellaneous DIRECTED RF: 0 Lancet: Device miscellaneous QID RF: 0 sennosides [senna] 8.6 mg Tablet 17.2 mg PO BID RF: 0 acetaminophen 325 mg Tablet 650 mg PO Q4H PRN (Reason: pain level 1-3 or fever > 100) RF: 0 ketoconazole 2 % Shampoo 1 applic TOPICAL TU RF: 0 bisacodyl 10 mg Suppository 10 mg KY PRN PRN (Reason: no BM x 5 days) RF: 0 mupirocin 2 % Ointment 1 applic TOPICAL TID PRN (Reason: foliculitis) RF: 0 nystatin 100,000 unit/gram Powder 1 applic TOPICAL BID PRN (Reason: skin care) RF: 0 bisacodyl 5 mg Tablet 5 mg PO PRN PRN (Reason: no BM x 3 days) RF: 0 bisacodyl 5 mg Tablet 10 mg PO PRN PRN (Reason: no BM x 4 days) RF: 0 CeraVe Cream 1 applic topical BID RF: 0 Barrier Cream 1 applic topical BID RF: 0 Healthshake 240 ml PO BID RF: 0 losartan 100 MG tablet 100 mg PO DAILY RF: 0 hydrocodone-acetaminophen 5-325 mg Tablet 1 tab PO Q6H PRN (Reason: Pain (Scale Score 7-10)) Qty: 10 RF: 0 hydrocodone-acetaminophen 5-325 mg Tablet 0.5 tab PO Q6H PRN (Reason: Pain (Scale Score 4-6)) Qty: 10 RF: 0 Discontinued phenytoin sodium extended [Dilantin Extended] 100 mg Capsule 100 mg PO TID RF: 0 diltiazem HCl 120 mg Capsule,Extended Release 12 Hr 120 mg PO DAILY RF: 0 Follow up/Referrals: Estefany Yoon MD [Primary Care Provider] - Discharge Orders: Discharge (Order); Ordered 10/21/18 Ordered By: Meghna Roman Discharge Health Status Brief summary of current health status: 63-year-old male with a past medical history significant for CAD, previous CVA with residual deficit of dysphagia/aphasia and right hemiparesis, hypertension, hyperlipidemia, diabetes mellitus type 2, insulin using, atrial fibrillation, GERD, BPH, RLS, and depression who presented via EMS for hypoxemia and fever after vomiting and probable aspiration event. The patient has been treated for aspiration pneumonia and is finishing course of oral antibiotics. Patient needs to have Dilantin level monitored more closely outpatient and his long-acting Dilantin has been changed to an oral suspension due to patient doing pills and questionable absorption of long-acting medication. Switched diltiazem to short- acting as well. Recommend considering palliative approach in regard to patient's goals of care. Multidrug resistant organism: No MDRO Precautions: Wilson Provider Discharge Instructions Diet: Diet as Tolerated, Low-fat, Low-sodium and Low-cholesterol Liquid consistency: Athalia Consistency Diet comment: dysphagia mechanical soft with nectar thick liquids Activity: Patient is at baseline which is bed and wheelchair-bound. PT/OT signed off. Seizure and aspiration precautions at all times with head of bed at 30 degrees or greater. Discharge Data Primary Care Provider: Estefany Yoon Attending Provider: Inedrjit Jackson Admit Date/Time: 10/17/18 01:52 Quality VTE Deep Vein Thrombosis/Pulmonary Embolism Present on Admission: No
--- NOTE | 2018-10-21 13:51 | PC.NURSE ---
ambulance here to transfer pt to [facility]. report given to EMT. pt awake, answers appropriately
== END 2018-10-21 13:45 | DRG 871 ==
LOC: ED 01:06 → AC 01:53
PROVIDERS: Internal Medicine; Admitting Provider Family Medicine; Emergency Provider Emergency Medicine; Family Provider Internal Medicine; PCP Internal Medicine; Visit Provider Family Medicine
DX: A41.9 Sepsis, unspecified organism (principal); J69.0 Pneumonitis due to inhalation of food and vomit; J96.01 Acute respiratory failure with hypoxia; I69.351 Hemiplegia and hemiparesis following cerebral infarction affecting right dominant side; N17.9 Acute kidney failure, unspecified; R65.20 Severe sepsis without septic shock; Y95 Nosocomial condition; I69.391 Dysphagia following cerebral infarction; I25.10 Atherosclerotic heart disease of native coronary artery without angina pectoris; K21.9 Gastro-esophageal reflux disease without esophagitis; E78.5 Hyperlipidemia, unspecified; I10 Essential (primary) hypertension; N40.0 Benign prostatic hyperplasia without lower urinary tract symptoms; E11.9 Type 2 diabetes mellitus without complications; Z79.4 Long term (current) use of insulin; I48.0 Paroxysmal atrial fibrillation; F32.9 Major depressive disorder, single episode, unspecified; G47.00 Insomnia, unspecified; G40.909 Epilepsy, unspecified, not intractable, without status epilepticus; F03.90 Unspecified dementia, unspecified severity, without behavioral disturbance, psychotic disturbance, mood disturbance, and anxiety; K59.09 Other constipation
CPT/HCPCS: 36415; 36591; 36592; 71045; 80048; 80053; 80185; 80202; 82962; 83605; 83735; 83880; 84145; 85025; 87040; 92526; 92610; 93005; 93010; 94760; 94762; 96365; 99283; 99285; J1956; J2405; J2543; J3370; J3480

== ENCOUNTER → 2018-10-23 17:02 | Outpatient (ROUT) | payer MEDICAID, SELFPAY ==
[2018-10-17 03:10] VITALS: BMI 23.8
[2018-10-23 17:05] LABS: Bacteria Urine None Seen; WBC Urine None Seen (0-5/HPF)
[2018-10-23 17:11] LABS: Appearance Urine UA CLEAR; Bilirubin Urine UA NEGATIVE (NEGATIVE); Color Urine UA YELLOW; Glucose Urine UA 1+ g/dL (Negative); Ketones Urine UA NEGATIVE (NEGATIVE); Leukocyte Esterase Urine UA NEGATIVE (NEGATIVE); Nitrite Urine UA NEGATIVE (Negative); Occult Blood Urine UA TRACE-LYSED (Negative); Protein Urine UA 1+ (Negative); Urobilinogen Urine UA 0.2 E.U./dL (0.2); pH Urine UA 6.5 (4.5-8.0)
[2018-10-23 17:13] LABS: Add Manual Diff / Slide Review NO; Basophils Absolute Auto 0 /uL (0-100); Basophils Percent Auto 0.3 % (0-2); Eosinophils Absolute Auto 200 /uL (0-450); Eosinophils Percent Auto 1.7 % (2-4); Hematocrit 40.7 % (41-53); Hemoglobin 13.7 g/dL (13.5-17.5); Lymphocytes Absolute Auto 1000 /uL (1100-4500); Lymphocytes Percent Auto 6.9 % (25-40); Mean Corpuscular HGB Conc 33.6 % (30-36); Mean Corpuscular Hemoglobin 29.7 PG (26-34); Mean Corpuscular Volume 88.5 fL (80-100); Monocytes Absolute Auto 1300 /uL (0-900); Monocytes Percent Auto 8.9 % (3-14); Neutrophils Absolute Auto 11700 /uL (1500-7000); Neutrophils Percent Auto 82.2 % (50-75); Platelet Count 362 X10^3/uL (150-400); Red Cell Distribution Width 13.6 % (11.6-14.8); White Blood Cell Count 14.2 X10^3/uL (4.5-11.0)
[2018-10-23 17:16] LABS: BUN Creatinine Ratio 13.8 (6-22); Blood Urea Nitrogen 18 mg/dL (9-20); Carbon Dioxide 30 mmol/L (22-32); Chloride 104 mmol/L (98-107); Estimated Glomerular Filt Rate 55.9 mL/min (>60); Glucose 201 mg/dL (80-110); HEMOLYSIS < 15 (0-50); Potassium 3.3 mmol/L (3.4-5.1); Sodium 144 mmol/L (137-145)
[2018-10-23 17:20] LABS: Culture Indicated Urine Cult Not Indicated; RBC Urine 1-5/HPF (0-5/HPF)
== END ==
PROVIDERS: Family Provider Internal Medicine; PCP Internal Medicine; Visit Provider Internal Medicine
DX: R50.9 Fever, unspecified (principal); J18.9 Pneumonia, unspecified organism
CPT/HCPCS: 80048; 81001; 85025

== ENCOUNTER → 2018-10-24 11:06 | Outpatient (ROUT) | payer MEDICAID, SELFPAY ==
[2018-10-17 03:10] VITALS: BMI 23.8
[2018-10-24 11:14] LABS: Add Manual Diff / Slide Review NO; Basophils Absolute Auto 100 /uL (0-100); Basophils Percent Auto 0.4 % (0-2); Eosinophils Absolute Auto 200 /uL (0-450); Eosinophils Percent Auto 1.8 % (2-4); Hematocrit 42.2 % (41-53); Hemoglobin 14.3 g/dL (13.5-17.5); Lymphocytes Absolute Auto 900 /uL (1100-4500); Lymphocytes Percent Auto 6.8 % (25-40); Mean Corpuscular HGB Conc 33.8 % (30-36); Mean Corpuscular Hemoglobin 29.9 PG (26-34); Mean Corpuscular Volume 88.6 fL (80-100); Monocytes Absolute Auto 1100 /uL (0-900); Monocytes Percent Auto 7.9 % (3-14); Neutrophils Absolute Auto 11300 /uL (1500-7000); Neutrophils Percent Auto 83.1 % (50-75); Platelet Count 410 X10^3/uL (150-400); Red Blood Cell Count 4.77 X10^6/uL (4.5-5.9); White Blood Cell Count 13.6 X10^3/uL (4.5-11.0)
== END ==
PROVIDERS: Family Provider Internal Medicine; PCP Internal Medicine; Visit Provider Internal Medicine
DX: J18.9 Pneumonia, unspecified organism (principal)
CPT/HCPCS: 85025